=== PATIENT | female | born 1990 | race Caucasian/White ===

== ENCOUNTER 2017-01-25 21:42 | Emergency (ER) | payer OTHER ==
[~2017-01-25] VITALS: Ht 172.7 cm; Wt 80.0 kg
[~2017-01-25 21:42] MED LIST: BUSP10TA PO; LURA40 PO; PROZ20CA11 PO; TRAZ150T75 PO
[2017-01-25 22:03] VITALS: BP 117/74; PULSE 102; RESP 20; TEMP 99; O2SAT 100
--- NOTE | 2017-01-25 22:23 | PD ---
HPI Chief Complaint: Psychiatric Symptoms Time Seen by Provider: 22:11 Travel History International Travel<30 days: No Contact w/Intl Traveler<30days: No Traveled to known affect area: No History of Present Illness HPI 26-year-old female brought in by PD under Hunter act for self-mutilation. According to the Hunter act the patient some photographs herself to a friend that showed old pole lacerations on her arms and being covered in blood. Patient was not cooperative and wouldn't speak with deputies in reference to being suicidal. In route to the hospital the patient became combative. She was given Ativan 2 mg and Zofran 4 mg by EMS and was placed in 4 point restraints as she is a danger to both herself and to others. On my assessment the patient refuses to answer my questions, only answering the question as to why she cut herself with "that's what I do." PFSH Past Medical History ADHD: No Arthritis: No Asthma: No Autoimmune Disease: No Blood Disorders: No Bipolar Disorder: Yes Anxiety: Yes Depression: Yes Heart Rhythm Problems: Yes High Cholesterol: No Chemotherapy: No Chest Pain: No Congestive Heart Failure: No COPD: No Cerebrovascular Accident: No Diminished Hearing: No Endocrine: No Gastrointestinal Disorders: No GERD: No Glaucoma: No Genitourinary: No Hepatitis: No Hiatal Hernia: No Hypertension: No Immune Disorder: No Kidney Stones: No Musculoskeletal: No Neurologic: Yes Psychiatric: Yes (pt has an extensive history of hospitalizations) Respiratory: No Immunizations Current: Yes Migraines: No Myocardial Infarction: No Radiation Therapy: No Renal Failure: No Sickle Cell Disease: No Sleep Apnea: No Thyroid Disease: No Ulcer: No ?: Unknown : 0 Para: 0 Past Surgical History Surgical History: No Previous Surgery AICD: No Appendectomy: No Arteriovenous Shunt: No Cholecystectomy: No Insulin Pump: No Joint Replacement: No Pacemaker: No Other Surgery: No Social History Alcohol Use: Yes (10 shots rum) Tobacco Use: Yes Substance Use: Yes (ALCOHOL, POLY-SUBSTANCES) Allergies-Medications (Allergen,Severity, Reaction): Coded Allergies: No Known Allergies (Verified , 01/25/17) Reported Meds & Prescriptions Reported Meds & Active Scripts Active Reported Trazodone (Trazodone HCl) 150 Mg Tab 150 Mg PO HS Prozac (Fluoxetine HCl) 20 Mg Cap 20 Mg PO DAILY Buspirone (Buspirone HCl) 10 Mg Tab 10 Mg PO TID Latuda (Lurasidone) 40 Mg Tab 40 Mg PO DAILY Review of Systems Except as stated in HPI: all other systems reviewed are Neg Physical Exam Narrative GENERAL: Well-developed, well-nourished, in 4 point restraints, no acute distress. SKIN: Multiple horizontal healed scars on bilateral upper and lower extremities. Bilateral upper extremities are multiple horizontal/superficial lacerations without active bleeding. HEAD: Atraumatic. Normocephalic. EYES: Pupils equal and round. No scleral icterus. No injection or drainage. ENT: Mucous membranes pink and moist. NECK: Trachea midline. No JVD. No nuchal rigidity. CARDIOVASCULAR: Regular rate and rhythm. RESPIRATORY: No accessory muscle use. Clear to auscultation. Breath sounds equal bilaterally. GASTROINTESTINAL: Abdomen soft, non-tender, nondistended. Hepatic and splenic margins not palpable. MUSCULOSKELETAL: No obvious deformities. No clubbing. No cyanosis. No edema. NEUROLOGICAL: Awake and alert. No obvious cranial nerve deficits. Motor grossly within normal limits. Normal speech. PSYCHIATRIC: Poor eye contact. Refusing to answer questions. Data Data Last Documented VS Vital Signs Date Time Temp Pulse Resp B/P Pulse Ox O2 Delivery O2 Flow Rate FiO2 01/25/17 23:11 100 20 103/98 95 Room Air 01/25/17 22:03 99.0 Orders Complete Blood Count With Diff (01/25/17 22:16) Comprehensive Metabolic Panel (01/25/17 22:16) Beta Hcg (Quant/Titer) (01/25/17 22:16) Psych Screen (01/25/17 22:16) Drug Screen, Random Urine (01/25/17 22:16) Alcohol (Ethanol) (01/25/17 22:16) Salicylates (Aspirin) (01/25/17 22:16) Tylenol (Acetaminophen) (01/25/17 22:16) Restraints Violent (01/25/17 22:30) Olanzapine Inj (Zyprexa Inj) (01/25/17 22:30) Labs Laboratory Tests Test 01/25/17 01/25/17 22:18 22:21 White Blood Count 5.5 TH/MM3 Red Blood Count 4.68 MIL/MM3 Hemoglobin 12.0 GM/DL Hematocrit 36.5 % Mean Corpuscular Volume 77.9 FL Mean Corpuscular Hemoglobin 25.7 PG Mean Corpuscular Hemoglobin 33.0 % Concent Red Cell Distribution Width 20.3 % Platelet Count 200 TH/MM3 Mean Platelet Volume 9.2 FL Neutrophils (%) (Auto) 65.0 % Lymphocytes (%) (Auto) 23.8 % Monocytes (%) (Auto) 8.9 % Eosinophils (%) (Auto) 1.8 % Basophils (%) (Auto) 0.5 % Neutrophils # (Auto) 3.6 TH/MM3 Lymphocytes # (Auto) 1.3 TH/MM3 Monocytes # (Auto) 0.5 TH/MM3 Eosinophils # (Auto) 0.1 TH/MM3 Basophils # (Auto) 0.0 TH/MM3 CBC Comment DIFF FINAL Differential Comment Sodium Level 142 MEQ/L Potassium Level 3.7 MEQ/L Chloride Level 107 MEQ/L Carbon Dioxide Level 25.0 MEQ/L Anion Gap 10 MEQ/L Blood Urea Nitrogen 4 MG/DL Creatinine 0.58 MG/DL Estimat Glomerular Filtration 126 ML/MIN Rate Random Glucose 99 MG/DL Calcium Level 7.9 MG/DL Total Bilirubin 0.1 MG/DL Aspartate Amino Transf 56 U/L (AST/SGOT) Alanine Aminotransferase 54 U/L (ALT/SGPT) Alkaline Phosphatase 107 U/L Total Protein 6.9 GM/DL Albumin 2.7 GM/DL Human Chorionic Gonadotropin, LESS THAN 1 Quant MIU/ML Urine Opiates Screen NEG Acetaminophen Level LESS THAN 2.0 MCG/ML Urine Barbiturates Screen NEG Urine Amphetamines Screen NEG Urine Benzodiazepines Screen NEG Urine Cocaine Screen NEG Urine Cannabinoids Screen NEG Ethyl Alcohol Level 336 MG/DL Salicylates Level 4.9 MG/DL [facility] Medical Decision Making Medical Screen Exam Complete: Yes Emergency Medical Condition: Yes Differential Diagnosis Self-mutilation, depression, suicidal ideation Narrative Course Vital signs reviewed. The patient arrived in 4-point or strains and was given Ativan by EMS prior to arrival. Shortly after she arrived she became very aggressive and required further chemical restraint was Zyprexa. CBC is unremarkable. CMP is unremarkable. Beta hCG is negative. Alcohol level is 336. Tylenol and salicylate levels are negative. Urine drug screen is negative for all drugs tested. Bilateral upper extremity wounds were thoroughly irrigated and were approximated by my nurse using Steri-Strips. [facility] is medically cleared for psychiatric evaluation and disposition by them. Diagnosis Primary Impression: Self-mutilation Additional Impressions: Alcohol intoxication Qualified Code: F10.120 - Alcohol intoxication, uncomplicated Multiple lacerations Shahid Hou MD Jan 25, 2017 22:23 Shahid Hou MD Jan 25, 2017 22:23
[2017-01-25] MEDS ORDERED: OLANZapine IM 10 MG VIAL IM ONE (22:30)
[2017-01-25 22:36] LABS: AUTOMATED NEUTROPHIL # 3.6 TH/MM3 (1.8-7.7); BASOPHIL % 0.5 % (0.0-2.0); EOSINOPHIL # 0.1 TH/MM3 (0-0.4); EOSINOPHIL % 1.8 % (0.0-4.0); HEMATOCRIT 36.5 % (35.0-46.0); HEMO FLAGS DIFF FINAL; LYMPH % 23.8 % (9.0-44.0); LYMPHOCYTE # 1.3 TH/MM3 (1.0-4.8); MEAN CELL VOLUME 77.9 FL (80.0-100.0); MEAN CORPUSCULAR HEMOGLOBIN 25.7 PG (27.0-34.0); MONO % 8.9 % (0.0-8.0); PLATELET COUNT 200 TH/MM3 (150-450); RED BLOOD COUNT 4.68 MIL/MM3 (4.00-5.30); RED CELL DISTRIBUTION WIDTH 20.3 % (11.6-17.2); WHITE BLOOD COUNT 5.5 TH/MM3 (4.0-11.0)
[2017-01-25 22:51] LABS: ACETAMINOPHEN LESS THAN 2.0 MCG/ML (10.0-30.0); ALT (GPT) 54 U/L (10-53); AMPHETAMINE, URINE NEG (NEG); ANION GAP 10 MEQ/L (5-15); AST (GOT) 56 U/L (15-37); BARBITURATES, URINE NEG (NEG); BLOOD UREA NITROGEN 4 MG/DL (7-18); CHLORIDE 107 MEQ/L (98-107); COCAINE, URINE NEG (NEG); GLOMERULAR FILTRATION RATE 126 ML/MIN (>89); POTASSIUM 3.7 MEQ/L (3.5-5.1); SODIUM (NA) 142 MEQ/L (136-145)
[2017-01-25 22:56] LABS: ALKALINE PHOSPHATASE 107 U/L (45-117); BETA HCG QUANT LESS THAN 1 MIU/ML (0-5); TOTAL BILIRUBIN ADULT 0.1 MG/DL (0.2-1.0)
[2017-01-25 23:11] VITALS: BP 103/98; PULSE 100; RESP 20; O2SAT 95
[2017-01-26 02:16] VITALS: BP 134/61; PULSE 79; RESP 17; O2SAT 95
[2017-01-26 06:35] VITALS: BP 135/78; PULSE 110; RESP 18; O2SAT 98
--- NOTE | 2017-01-26 14:27 | PD ---
History of Present Illness Chief Complaint: Psychiatric Symptoms Time Seen by Provider: 14:15 Travel History International Travel<30 Days: No Contact w/Intl Traveler<30days: No Known affected area: No Legal Status Legal Status: Hunter Act Hunter Act Signed By: Dayton Clement History of Present Illness: 26-year-old female who was Hunter acted after cutting herself. Apparently she was watching television and the Dr. Abdul show had an episode about cutting. The patient has a history of cutting herself and states the television show triggered her. At this time she is not suicidal homicidal or psychotic. She is calm and cooperative. Her cognition is completely intact. She denies any suicidal or homicidal ideation, plan or intention. She denies any psychotic symptoms. She verbally contracts for safety. She does not meet criteria for inpatient psychiatric hospitalization or Hunter act. [facility] Past Medical History ADHD: No Arthritis: No Asthma: No Autoimmune Disease: No Blood Disorders: No Bipolar Disorder: Yes Anxiety: Yes Depression: Yes Heart Rhythm Problems: Yes High Cholesterol: No Chemotherapy: No Chest Pain: No Congestive Heart Failure: No COPD: No Cerebrovascular Accident: No Diminished Hearing: No Endocrine: No Gastrointestinal Disorders: No GERD: No Glaucoma: No Genitourinary: No Hepatitis: No Hiatal Hernia: No Hypertension: No Immune Disorder: No Kidney Stones: No Musculoskeletal: No Neurologic: Yes Psychiatric: Yes (pt has an extensive history of hospitalizations) Respiratory: No Immunizations Current: Yes Migraines: No Myocardial Infarction: No Radiation Therapy: No Renal Failure: No Sickle Cell Disease: No Sleep Apnea: No Thyroid Disease: No Ulcer: No ?: Unknown : 0 Para: 0 Past Surgical History Surgical History: No Previous Surgery AICD: No Appendectomy: No Arteriovenous Shunt: No Cholecystectomy: No Insulin Pump: No Joint Replacement: No Pacemaker: No Other Surgery: No Psychiatric History Psychiatric History Hx Psychiatric Treatment: Patient with hx of self-harm, depression, anxiety d/o, and bipolar d/o. Last [facility] admission - 2015 dx depression. [facility] 2015 dx mutilation. Past treatment at [facility]. History of Inpatient Treatment: Yes Social History Hx Alcohol Use: Yes (10 shots rum) Hx Tobacco Use: Yes Hx Substance Use: Yes Substance Use Type: Alcohol, Marijuana, Nicotine/Cigarettes, Prescription Medications, Huffing, Synth Opiates-Pain Pills Hx of Substance Use Treatment: No Allergies-Medications (Allergen,Severity, Reaction): Coded Allergies: No Known Allergies (Verified , 01/25/17) Reported Meds & Prescriptions Reported Meds & Active Scripts Active Reported Trazodone (Trazodone HCl) 150 Mg Tab 150 Mg PO HS Prozac (Fluoxetine HCl) 20 Mg Cap 20 Mg PO DAILY Buspirone (Buspirone HCl) 10 Mg Tab 10 Mg PO TID Latuda (Lurasidone) 40 Mg Tab 40 Mg PO DAILY Review of Systems ROS Limitations: Clinical Condition Except as stated in HPI: all other systems reviewed are Neg Exam Exam Limitations: Clinical Condition Alert: Yes [place]: Person, Place, Date, Situation Mood: Calm Affect: Appropriate Speech: Clear, Logical Eye Contact: Normal Memory Intact: Immediate, Recent, Remote Insight/Judgement Adequate MDM Medical Decision Making Medical Record Reviewed: Yes Assessment/Plan Patient is being lifted and she is being discharged home. She is currently in treatment and wants to return to treatment. She states she merely saw a television show that triggered her to cut but she was never suicidal, homicidal or psychotic. She is verbally kim for safety. She does not meet criteria for Hunter act or inpatient psychiatric hospitalization. Orders Complete Blood Count With Diff (01/25/17 22:16) Comprehensive Metabolic Panel (01/25/17 22:16) Beta Hcg (Quant/Titer) (01/25/17 22:16) Psych Screen (01/25/17 22:16) Drug Screen, Random Urine (01/25/17 22:16) Alcohol (Ethanol) (01/25/17 22:16) Salicylates (Aspirin) (01/25/17 22:16) Tylenol (Acetaminophen) (01/25/17 22:16) Restraints Violent (01/25/17 22:30) Olanzapine Inj (Zyprexa Inj) (01/25/17 22:30) Diet Regular Basic (01/26/17 Breakfast) Diet Regular Basic (01/26/17 Lunch) Results Vital Signs Date Time Temp Pulse Resp B/P Pulse Ox O2 Delivery O2 Flow Rate FiO2 01/26/17 08:36 110 18 01/26/17 06:35 110 18 135/78 98 Room Air 01/26/17 02:16 79 17 134/61 95 Room Air 01/25/17 23:11 100 20 103/98 95 Room Air 01/25/17 22:03 99.0 102 20 117/74 100 Room Air Laboratory Tests Test 01/25/17 01/25/17 22:18 22:21 White Blood Count 5.5 Red Blood Count 4.68 Hemoglobin 12.0 Hematocrit 36.5 Mean Corpuscular Volume 77.9 Mean Corpuscular Hemoglobin 25.7 Mean Corpuscular Hemoglobin 33.0 Concent Red Cell Distribution Width 20.3 Platelet Count 200 Mean Platelet Volume 9.2 Neutrophils (%) (Auto) 65.0 Lymphocytes (%) (Auto) 23.8 Monocytes (%) (Auto) 8.9 Eosinophils (%) (Auto) 1.8 Basophils (%) (Auto) 0.5 Neutrophils # (Auto) 3.6 Lymphocytes # (Auto) 1.3 Monocytes # (Auto) 0.5 Eosinophils # (Auto) 0.1 Basophils # (Auto) 0.0 CBC Comment DIFF FINAL Differential Comment Sodium Level 142 Potassium Level 3.7 Chloride Level 107 Carbon Dioxide Level 25.0 Anion Gap 10 Blood Urea Nitrogen 4 Creatinine 0.58 Estimat Glomerular Filtration 126 Rate Random Glucose 99 Calcium Level 7.9 Total Bilirubin 0.1 Aspartate Amino Transf 56 (AST/SGOT) Alanine Aminotransferase 54 (ALT/SGPT) Alkaline Phosphatase 107 Total Protein 6.9 Albumin 2.7 Human Chorionic Gonadotropin, LESS THAN 1 Quant Urine Opiates Screen NEG Acetaminophen Level LESS THAN 2.0 Urine Barbiturates Screen NEG Urine Amphetamines Screen NEG Urine Benzodiazepines Screen NEG Urine Cocaine Screen NEG Urine Cannabinoids Screen NEG Ethyl Alcohol Level 336 Salicylates Level 4.9 Diagnosis Primary Impression: Adjustment disorder with mixed disturbance of emotions and conduct Goldy Chan MD Jan 26, 2017 14:27
== END 2017-01-26 16:30 | disposition home or self-care (01) ==
LOC: NEPD 21:42 → NEPJ 01-26 16:30
DX: F43.25 Adjustment disorder with mixed disturbance of emotions and conduct (principal); Z91.5 Personal history of self-harm; F10.129 Alcohol abuse with intoxication, unspecified; S41.112A Laceration without foreign body of left upper arm, initial encounter; S41.111A Laceration without foreign body of right upper arm, initial encounter; X78.9XXA Intentional self-harm by unspecified sharp object, initial encounter; F19.10 Other psychoactive substance abuse, uncomplicated; Z72.0 Tobacco use
CPT/HCPCS: 80053; 80307; 84702; 85025; 96372

== ENCOUNTER 2017-02-11 20:37 | Emergency (ER) | payer OTHER ==
[2017-02-11 21:18] VITALS: BP 119/58; PULSE 89; RESP 16; TEMP 98.9; O2SAT 100
--- NOTE | 2017-02-11 21:35 | PD ---
HPI Chief Complaint: Suicide Ideation/Attempt Time Seen by Provider: 21:35 Travel History International Travel<30 days: No Contact w/Intl Traveler<30days: No Traveled to known affect area: No History of Present Illness HPI 26-year-old female patient arrives in the Hunter act with long history of psychiatric illness with cutting behavior and recurrent suicidal behavior. Patient currently denies any medical issues except for a sore swollen area over the right proximal volar forearm from previous cutting behavior with localized swelling and erythema and the discomfort. Patient denies fever, chills, or other symptoms. Patient is here with suicidal ideation. Patient denies alcohol or drug use. She has no known drug allergies. PFSH Past Medical History ADHD: No Arthritis: No Asthma: No Autoimmune Disease: No Blood Disorders: No Bipolar Disorder: Yes Anxiety: Yes Depression: Yes Heart Rhythm Problems: Yes High Cholesterol: No Chemotherapy: No Chest Pain: No Congestive Heart Failure: No COPD: No Cerebrovascular Accident: No Diminished Hearing: No Endocrine: No Gastrointestinal Disorders: No GERD: No Glaucoma: No Genitourinary: No Hepatitis: No Hiatal Hernia: No Hypertension: No Immune Disorder: No Kidney Stones: No Musculoskeletal: No Neurologic: Yes Psychiatric: Yes (pt has an extensive history of hospitalizations) Respiratory: No Immunizations Current: Yes Migraines: No Myocardial Infarction: No Radiation Therapy: No Renal Failure: No Sickle Cell Disease: No Sleep Apnea: No Thyroid Disease: No Ulcer: No ?: Unknown : 0 Para: 0 Past Surgical History AICD: No Appendectomy: No Arteriovenous Shunt: No Cholecystectomy: No Insulin Pump: No Joint Replacement: No Pacemaker: No Other Surgery: No Social History Alcohol Use: Yes (10 shots rum) Tobacco Use: Yes Substance Use: Yes Allergies-Medications (Allergen,Severity, Reaction): Coded Allergies: No Known Allergies (Verified , 02/11/17) Reported Meds & Prescriptions Reported Meds & Active Scripts Active Reported Trazodone (Trazodone HCl) 150 Mg Tab 150 Mg PO HS Prozac (Fluoxetine HCl) 20 Mg Cap 20 Mg PO DAILY Buspirone (Buspirone HCl) 10 Mg Tab 10 Mg PO TID Latuda (Lurasidone) 40 Mg Tab 40 Mg PO DAILY Review of Systems ROS Limitations: Uncooperative Except as stated in HPI: all other systems reviewed are Neg General / Constitutional: No: Fever Eyes: No: Visual changes HENT: No: Headaches Cardiovascular: No: Chest Pain or Discomfort Respiratory: No: Shortness of Breath Gastrointestinal: No: Abdominal Pain Genitourinary: No: Dysuria Musculoskeletal: No: Pain Skin: No Rash Neurologic: No: Weakness Psychiatric: No: Depression Endocrine: No: Polydipsia Hematologic/Lymphatic: No: Easy Bruising Physical Exam Exam Limitations: Poor Historian, Uncooperative Narrative GENERAL: Patient appears in mild discomfort. SKIN: Warm and dry. Patient has multiple healing lacerations from cutting behavior on all upper and lower extremities. She has a small area of swelling on the dorsal left proximal forearm with localized lymphangitis and erythema without significant drainage or signs of abscess. Otherwise skin is normal- appearing. HEAD: Atraumatic. Normocephalic. EYES: Pupils equal and round. No scleral icterus. No injection or drainage. ENT: No nasal bleeding or discharge. Mucous membranes pink and moist. Pharynx is clear. Airway is patent. NECK: Trachea midline. Supple and nontender. CARDIOVASCULAR: Regular rate and rhythm. RESPIRATORY: No accessory muscle use. Clear to auscultation. Breath sounds equal bilaterally. GASTROINTESTINAL: Abdomen soft, non-tender, nondistended. Hepatic and splenic margins not palpable. MUSCULOSKELETAL: Extremities without clubbing, cyanosis, or edema. No obvious deformities. NEUROLOGICAL: Awake and alert. No obvious cranial nerve deficits. Motor grossly within normal limits. Five out of 5 muscle strength in the arms and legs. Normal speech. PSYCHIATRIC: Appropriate mood and affect; insight and judgment normal. Data Data Last Documented VS Vital Signs Date Time Temp Pulse Resp B/P Pulse Ox O2 Delivery O2 Flow Rate FiO2 02/11/17 21:18 98.9 89 16 119/58 100 Room Air Orders Complete Blood Count With Diff (02/11/17 21:36) Comprehensive Metabolic Panel (02/11/17 21:36) Iv Access Insert/Monitor (02/11/17 21:36) Psych Screen (02/11/17 21:36) Drug Screen, Random Urine (02/11/17 21:36) Alcohol (Ethanol) (02/11/17 21:36) Clindamycin Inj (Cleocin Inj) (02/11/17 21:45) Sulfamet-Trimeth Ds 800-160 Mg (Bactrim (02/11/17 21:45) Diet Regular Basic (02/12/17 Breakfast) MDM Medical Decision Making Medical Screen Exam Complete: Yes Emergency Medical Condition: Yes Medical Record Reviewed: Yes Differential Diagnosis Cutting behavior. Suicidal ideation. Cellulitis. Narrative Course Patient appears medically stable at time of exam. Laboratory CBC, CMP, urine drug screen, urinalysis. IV access is obtained patient is given 900 mg clindamycin IV. Patient is given Bactrim DS by mouth times one. 2300 hrs. labs are still pending. Care the patient is assumed by Dr. Griffin. Final disposition will be determined by her. Diagnosis Primary Impression: Adjustment disorder with mixed disturbance of emotions and conduct Additional Impressions: Self-mutilation Cellulitis Qualified Code: L03.114 - Cellulitis of left upper extremity Condition: Stable Romario Olea Feb 11, 2017 21:35
[2017-02-11] MEDS ORDERED: SULFAMETHOXAZOLE-TRIMETHOPRIM DS 800-160 MG TAB PO ONE (21:45)
[2017-02-11] MEDS ORDERED: CLINDAMYCIN INJ 900 MG in SODIUM CHLORIDE 0.9% INJ 100 ML IV ONE (21:45)
[2017-02-11 23:10] LABS: BASOPHIL # 0.1 TH/MM3 (0-0.2); BASOPHIL % 0.6 % (0.0-2.0); EOSINOPHIL # 0.1 TH/MM3 (0-0.4); EOSINOPHIL % 0.7 % (0.0-4.0); HEMATOCRIT 33.2 % (35.0-46.0); LYMPH % 20.7 % (9.0-44.0); LYMPHOCYTE # 2.2 TH/MM3 (1.0-4.8); MEAN CELL VOLUME 76.6 FL (80.0-100.0); MEAN CORPUSCULAR HEMOGLOBIN 24.7 PG (27.0-34.0); MEAN CORPUSCULAR HGB CONC 32.3 % (32.0-36.0); PLATELET COUNT 296 TH/MM3 (150-450); RED BLOOD COUNT 4.33 MIL/MM3 (4.00-5.30); WHITE BLOOD COUNT 10.8 TH/MM3 (4.0-11.0)
[2017-02-11 23:26] LABS: HEMO FLAGS AUTO DIFF
[2017-02-11 23:29] LABS: ANION GAP 11 MEQ/L (5-15)
[2017-02-11 23:30] LABS: AMPHETAMINE, URINE NEG (NEG); BARBITURATES, URINE NEG (NEG); COCAINE, URINE NEG (NEG)
[2017-02-11 23:32] LABS: ALKALINE PHOSPHATASE 112 U/L (45-117); ALT (GPT) 17 U/L (10-53); AST (GOT) 18 U/L (15-37); BICARBONATE 22.6 MEQ/L (21.0-32.0); BLOOD UREA NITROGEN 1 MG/DL (7-18); CHLORIDE 105 MEQ/L (98-107); GLOMERULAR FILTRATION RATE 139 ML/MIN (>89); POTASSIUM 3.3 MEQ/L (3.5-5.1); SODIUM (NA) 139 MEQ/L (136-145); TOTAL BILIRUBIN ADULT LESS THAN 0.1 MG/DL (0.2-1.0)
[2017-02-11 23:54] LABS: BANDS 2 % (0-6); METAMYELOCYTES 4 % (0-1); MYELOCYTES 1 % (0-0); NEUTROPHIL # MANUAL DIFF 8.9 TH/MM3 (1.8-7.7); POLYS (SEG NEUTROPHILS) 75 % (16-70); WBC DIFF SAMPLE 100
[2017-02-11 23:56] LABS: PLATELET ESTIMATE SMEAR NORMAL (NORMAL); PLATELET MORPHOLOGY NORMAL (NORMAL); SCAN/DIFF FINAL DIFF MANUAL
[2017-02-12] MEDS ORDERED: CLIN1CAP6 PO (00:21)
--- NOTE | 2017-02-12 00:21 | PD ---
Physical Exam Narrative GENERAL: Well-nourished, well-developed patient. SKIN: Warm and dry. HEAD: Normocephalic and atraumatic. EYES: No injection or drainage. pupils equal ENT: No nasal drainage noted. NECK: Supple, trachea midline. CARDIOVASCULAR: Regular rate and rhythm RESPIRATORY: no increased effort. No accessory muscle use. NEUROLOGICAL: Resting but awakens to voice and denies complaints. Moves all extremities. Data Data Last Documented VS Vital Signs Date Time Temp Pulse Resp B/P Pulse Ox O2 Delivery O2 Flow Rate FiO2 02/11/17 21:18 98.9 89 16 119/58 100 Room Air Orders Complete Blood Count With Diff (02/11/17 21:36) Comprehensive Metabolic Panel (02/11/17 21:36) Iv Access Insert/Monitor (02/11/17 21:36) Psych Screen (02/11/17 21:36) Drug Screen, Random Urine (02/11/17 21:36) Alcohol (Ethanol) (02/11/17 21:36) Clindamycin Inj (Cleocin Inj) (02/11/17 21:45) Sulfamet-Trimeth Ds 800-160 Mg (Bactrim (02/11/17 21:45) Diet Regular Basic (02/12/17 Breakfast) Labs Laboratory Tests Test 02/11/17 02/11/17 22:24 23:00 White Blood Count 10.8 TH/MM3 Red Blood Count 4.33 MIL/MM3 Hemoglobin 10.7 GM/DL Hematocrit 33.2 % Mean Corpuscular Volume 76.6 FL Mean Corpuscular Hemoglobin 24.7 PG Mean Corpuscular Hemoglobin 32.3 % Concent Red Cell Distribution Width 20.0 % Platelet Count 296 TH/MM3 Mean Platelet Volume 9.0 FL Neutrophils (%) (Auto) 74.0 % Lymphocytes (%) (Auto) 20.7 % Monocytes (%) (Auto) 4.0 % Eosinophils (%) (Auto) 0.7 % Basophils (%) (Auto) 0.6 % Neutrophils # (Auto) 8.0 TH/MM3 Lymphocytes # (Auto) 2.2 TH/MM3 Monocytes # (Auto) 0.4 TH/MM3 Eosinophils # (Auto) 0.1 TH/MM3 Basophils # (Auto) 0.1 TH/MM3 CBC Comment AUTO DIFF Differential Total Cells 100 Counted Neutrophils % (Manual) 75 % Band Neutrophils % 2 % Lymphocytes % 18 % Neutrophils # (Manual) 8.9 TH/MM3 Metamyelocytes 4 % Myelocytes 1 % Differential Comment FINAL DIFF MANUAL Platelet Estimate NORMAL Platelet Morphology Comment NORMAL Sodium Level 139 MEQ/L Potassium Level 3.3 MEQ/L Chloride Level 105 MEQ/L Carbon Dioxide Level 22.6 MEQ/L Anion Gap 11 MEQ/L Blood Urea Nitrogen 1 MG/DL Creatinine 0.53 MG/DL Estimat Glomerular Filtration 139 ML/MIN Rate Random Glucose 99 MG/DL Calcium Level 8.2 MG/DL Total Bilirubin LESS THAN 0.1 MG/DL Aspartate Amino Transf 18 U/L (AST/SGOT) Alanine Aminotransferase 17 U/L (ALT/SGPT) Alkaline Phosphatase 112 U/L Total Protein 6.7 GM/DL Albumin 2.2 GM/DL Ethyl Alcohol Level 228 MG/DL Urine Opiates Screen NEG Urine Barbiturates Screen NEG Urine Amphetamines Screen NEG Urine Benzodiazepines Screen NEG Urine Cocaine Screen NEG Urine Cannabinoids Screen NEG MDM Supervised Visit with ADALBERTO: Yes Interpretation(s) CBC & BMP Diagram 02/11/17 22:24 Narrative Course I, Dr. juarez, have reviewed the advance practice practitioner's documentation and am in agreement, met with the patient face to face, made the diagnosis, and the medical decision making was done by me. *My assessment and Findings: 26 y/o female presents under Hunter act. Lab work without emergent findings and patient is medically cleared without new complaints. Please see prior note for further details, will provide clindamycin to continue Diagnosis Primary Impression: Adjustment disorder with mixed disturbance of emotions and conduct Additional Impressions: Cellulitis Qualified Code: L03.114 - Cellulitis of left upper extremity Self-mutilation Med/Other Pt SpecificInfo: Prescription(s) given Scripts Clindamycin 300 Mg [id number] Mg PO TID 10 Days Ref 0 Prov:Edelmira Juarez MD 02/12/17 Condition: Stable Edelmira Juarez MD Feb 12, 2017 00:21
[2017-02-12 00:25] VITALS: BP 94/51; PULSE 98; RESP 18; O2SAT 100
[2017-02-12 02:04] VITALS: BP 110/53; PULSE 100; RESP 18; O2SAT 99
[2017-02-12 06:08] VITALS: BP 95/55; PULSE 104; RESP 18; O2SAT 100
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
== END 2017-02-12 12:22 | disposition home or self-care (01) ==
LOC: NEPE 20:37 → NEPJ 02-12 12:22
DX: L03.114 Cellulitis of left upper limb (principal); F43.25 Adjustment disorder with mixed disturbance of emotions and conduct; Z91.5 Personal history of self-harm; F31.9 Bipolar disorder, unspecified; F41.8 Other specified anxiety disorders
CPT/HCPCS: 80053; 80307; 85007; 85027; 96374

== ENCOUNTER 2017-02-19 21:07 | Emergency (ER) | payer OTHER ==
[~2017-02-19 21:07] MED LIST changes: +CLIN1CAP6 PO
[2017-02-19 21:31] VITALS: BP 106/61; PULSE 78; TEMP 98.3; O2SAT 92
--- NOTE | 2017-02-19 21:47 | PD ---
HPI Chief Complaint: Psychiatric Symptoms Time Seen by Provider: 21:38 Travel History International Travel<30 days: No Contact w/Intl Traveler<30days: No Traveled to known affect area: No History of Present Illness HPI 26-year-old white female presents to emergency department under [place] act by PD for self-inflicted lacerations. This is a patient well-known to myself and the medical staff. The patient has performed self mutilation again today cutting herself with a razor. She has cut her left upper extremity as well as her left lower extremity. She denies any suicidal ideation. No homicidal ideation. She does admit to alcohol. Positive coughing congestion. No other complaints. The patient will not elaborate on why she cut today. PFSH Past Medical History ADHD: No Arthritis: No Asthma: No Autoimmune Disease: No Blood Disorders: No Bipolar Disorder: Yes Anxiety: Yes Depression: Yes Heart Rhythm Problems: Yes High Cholesterol: No Chemotherapy: No Chest Pain: No Congestive Heart Failure: No COPD: No Cerebrovascular Accident: No Diminished Hearing: No Endocrine: No Gastrointestinal Disorders: No GERD: No Glaucoma: No Genitourinary: No Hepatitis: No Hiatal Hernia: No Hypertension: No Immune Disorder: No Kidney Stones: No Musculoskeletal: No Neurologic: Yes Psychiatric: Yes (pt has an extensive history of hospitalizations) Respiratory: No Immunizations Current: Yes Migraines: No Myocardial Infarction: No Radiation Therapy: No Renal Failure: No Sickle Cell Disease: No Sleep Apnea: No Thyroid Disease: No Ulcer: No Tetanus Vaccination: < 5 Years : 0 Para: 0 Past Surgical History Surgical History: No Previous Surgery AICD: No Appendectomy: No Arteriovenous Shunt: No Cholecystectomy: No Insulin Pump: No Joint Replacement: No Pacemaker: No Other Surgery: No Social History Alcohol Use: Yes (10 shots rum) Tobacco Use: Yes Substance Use: Yes Allergies-Medications (Allergen,Severity, Reaction): Coded Allergies: No Known Allergies (Verified , 02/11/17) Reported Meds & Prescriptions Reported Meds & Active Scripts Active Reported Trazodone (Trazodone HCl) 150 Mg Tab 150 Mg PO HS Prozac (Fluoxetine HCl) 20 Mg Cap 20 Mg PO DAILY Buspirone (Buspirone HCl) 10 Mg Tab 10 Mg PO TID Latuda (Lurasidone) 40 Mg Tab 40 Mg PO DAILY Review of Systems Except as stated in HPI: all other systems reviewed are Neg General / Constitutional: No: Fever, Chills Eyes: No: Blurred Vision, Photophobia HENT: No: Sore Throat, Neck Stiffness Cardiovascular: No: Chest Pain or Discomfort, Palpitations Respiratory: Positive: Cough, No: Shortness of Breath, Wheezing Gastrointestinal: No: Nausea, Vomiting Psychiatric: Positive: Depression, Mood Disorder, Substance Abuse, No: Anxiety , Suicidal Ideations, Disorder of Thought, Homicidal Ideation Physical Exam Narrative GENERAL: Well-nourished, well-developed patient. Smells of EtOH and appears intoxicated SKIN: Warm and dry. Patient has multiple lacerations to the left upper extremity and the left lower extremity. These are the patient's typical cutting. These are into the subcutaneous change tissues but no deep structure injury. These are amenable to Steri-Strips. HEAD: Normocephalic and atraumatic. EYES: No scleral icterus. No injection or drainage. ENT: No nasal drainage noted. Mucous membranes pink. Airway patent. NECK: Supple, trachea midline. Moves head freely without obvious discomfort. CARDIOVASCULAR: Regular rate and rhythm without murmurs, gallops, or rubs. RESPIRATORY: Breath sounds equal bilaterally. No accessory muscle use. GASTROINTESTINAL: Abdomen soft, non-tender, nondistended. EXTREMITIES: No cyanosis or edema. BACK: Nontender without obvious deformity. No CVA tenderness. NEURO: Patient is alert and oriented. no sensorimotor deficits. Nonfocal. Normal speech. PSYCH: No delusions. No auditory or visual hallucinations. Poor insight and judgment. Data Data Last Documented VS Vital Signs Date Time Temp Pulse Resp B/P Pulse Ox O2 Delivery O2 Flow Rate FiO2 02/19/17 21:31 98.3 78 106/61 92 Orders Complete Blood Count With Diff (02/19/17 21:21) Comprehensive Metabolic Panel (02/19/17 21:21) Ed Urine Pregnancytest Poc (02/19/17 21:21) Psych Screen (02/19/17 21:21) Drug Screen, Random Urine (02/19/17 21:21) Alcohol (Ethanol) (02/19/17 21:21) Salicylates (Aspirin) (02/19/17 21:21) Tylenol (Acetaminophen) (02/19/17 21:21) Labs Laboratory Tests Test 02/19/17 21:50 White Blood Count 9.0 TH/MM3 Red Blood Count 4.78 MIL/MM3 Hemoglobin 11.8 GM/DL Hematocrit 37.1 % Mean Corpuscular Volume 77.5 FL Mean Corpuscular Hemoglobin 24.8 PG Mean Corpuscular Hemoglobin 31.9 % Concent Red Cell Distribution Width 20.2 % Platelet Count 341 TH/MM3 Mean Platelet Volume 8.8 FL Neutrophils (%) (Auto) 75.3 % Lymphocytes (%) (Auto) 19.0 % Monocytes (%) (Auto) 4.2 % Eosinophils (%) (Auto) 0.9 % Basophils (%) (Auto) 0.6 % Neutrophils # (Auto) 6.8 TH/MM3 Lymphocytes # (Auto) 1.7 TH/MM3 Monocytes # (Auto) 0.4 TH/MM3 Eosinophils # (Auto) 0.1 TH/MM3 Basophils # (Auto) 0.1 TH/MM3 CBC Comment AUTO DIFF Sodium Level 144 MEQ/L Potassium Level 4.3 MEQ/L Chloride Level 109 MEQ/L Carbon Dioxide Level 27.6 MEQ/L Anion Gap 7 MEQ/L Blood Urea Nitrogen 5 MG/DL Creatinine 0.68 MG/DL Estimat Glomerular Filtration 105 ML/MIN Rate Random Glucose 94 MG/DL Calcium Level 8.5 MG/DL Total Bilirubin LESS THAN 0.1 MG/DL Aspartate Amino Transf 28 U/L (AST/SGOT) Alanine Aminotransferase 26 U/L (ALT/SGPT) Alkaline Phosphatase 110 U/L Total Protein 7.2 GM/DL Albumin 2.6 GM/DL Salicylates Level 4.4 MG/DL Urine Opiates Screen NEG Acetaminophen Level LESS THAN 2.0 MCG/ML Urine Barbiturates Screen NEG Urine Amphetamines Screen NEG Urine Benzodiazepines Screen NEG Urine Cocaine Screen NEG Urine Cannabinoids Screen POS Ethyl Alcohol Level 255 MG/DL MDM Medical Decision Making Medical Screen Exam Complete: Yes Emergency Medical Condition: Yes Medical Record Reviewed: Yes Interpretation(s) Laboratory Tests Test 02/19/17 21:50 White Blood Count 9.0 TH/MM3 Red Blood Count 4.78 MIL/MM3 Hemoglobin 11.8 GM/DL Hematocrit 37.1 % Mean Corpuscular Volume 77.5 FL Mean Corpuscular Hemoglobin 24.8 PG Mean Corpuscular Hemoglobin 31.9 % Concent Red Cell Distribution Width 20.2 % Platelet Count 341 TH/MM3 Mean Platelet Volume 8.8 FL Neutrophils (%) (Auto) 75.3 % Lymphocytes (%) (Auto) 19.0 % Monocytes (%) (Auto) 4.2 % Eosinophils (%) (Auto) 0.9 % Basophils (%) (Auto) 0.6 % Neutrophils # (Auto) 6.8 TH/MM3 Lymphocytes # (Auto) 1.7 TH/MM3 Monocytes # (Auto) 0.4 TH/MM3 Eosinophils # (Auto) 0.1 TH/MM3 Basophils # (Auto) 0.1 TH/MM3 CBC Comment AUTO DIFF Sodium Level 144 MEQ/L Potassium Level 4.3 MEQ/L Chloride Level 109 MEQ/L Carbon Dioxide Level 27.6 MEQ/L Anion Gap 7 MEQ/L Blood Urea Nitrogen 5 MG/DL Creatinine 0.68 MG/DL Estimat Glomerular Filtration 105 ML/MIN Rate Random Glucose 94 MG/DL Calcium Level 8.5 MG/DL Total Bilirubin LESS THAN 0.1 MG/DL Aspartate Amino Transf 28 U/L (AST/SGOT) Alanine Aminotransferase 26 U/L (ALT/SGPT) Alkaline Phosphatase 110 U/L Total Protein 7.2 GM/DL Albumin 2.6 GM/DL Salicylates Level 4.4 MG/DL Urine Opiates Screen NEG Acetaminophen Level LESS THAN 2.0 MCG/ML Urine Barbiturates Screen NEG Urine Amphetamines Screen NEG Urine Benzodiazepines Screen NEG Urine Cocaine Screen NEG Urine Cannabinoids Screen POS Ethyl Alcohol Level 255 MG/DL Differential Diagnosis MDM: High Differential diagnoses: Schizophrenia, schizoaffective disorder, bipolar, anxiety, depression, adjustment reaction, mood disorder NOS, ODD, depressive disorder NOS, dementia, dementia with agitation, psychosis NOS, substance induced mood disorder, intermittent explosive disorder, Asperger syndrome, infection,electrolyte abnormality, malingering. Narrative Course Mental health screening discussed with the patient. Psychiatric screen ordered. The patient's lacerations have been cleansed, Steri-Stripped and dressed by the nursing staff. Patient is been medically cleared. This is self-mutilation, multiple lacerations, borderline personality disorder and adult, alcohol intoxication, alcohol abuse Diagnosis Primary Impression: Self-mutilation Additional Impressions: Multiple lacerations Borderline personality disorder in adult Alcohol intoxication Qualified Code: F10.920 - Alcohol intoxication, uncomplicated Alcohol abuse Condition: Stable Jonatan Eisenberg February 19, 2017 21:47
[2017-02-19 22:30] LABS: AUTOMATED NEUTROPHIL # 6.8 TH/MM3 (1.8-7.7); BASOPHIL # 0.1 TH/MM3 (0-0.2); BASOPHIL % 0.6 % (0.0-2.0); EOSINOPHIL # 0.1 TH/MM3 (0-0.4); EOSINOPHIL % 0.9 % (0.0-4.0); HEMATOCRIT 37.1 % (35.0-46.0); LYMPHOCYTE # 1.7 TH/MM3 (1.0-4.8); MEAN CELL VOLUME 77.5 FL (80.0-100.0); MEAN CORPUSCULAR HEMOGLOBIN 24.8 PG (27.0-34.0); MEAN CORPUSCULAR HGB CONC 31.9 % (32.0-36.0); MONO % 4.2 % (0.0-8.0); NEUT % 75.3 % (16.0-70.0); PLATELET COUNT 341 TH/MM3 (150-450); RED BLOOD COUNT 4.78 MIL/MM3 (4.00-5.30); RED CELL DISTRIBUTION WIDTH 20.2 % (11.6-17.2)
[2017-02-19 22:32] LABS: HEMO FLAGS AUTO DIFF
[2017-02-19 22:39] LABS: AMPHETAMINE, URINE NEG (NEG); BARBITURATES, URINE NEG (NEG); COCAINE, URINE NEG (NEG)
[2017-02-19 22:57] LABS: ANION GAP 7 MEQ/L (5-15); AST (GOT) 28 U/L (15-37); BICARBONATE 27.6 MEQ/L (21.0-32.0); BLOOD UREA NITROGEN 5 MG/DL (7-18); CHLORIDE 109 MEQ/L (98-107); GLOMERULAR FILTRATION RATE 105 ML/MIN (>89); POTASSIUM 4.3 MEQ/L (3.5-5.1); SODIUM (NA) 144 MEQ/L (136-145)
[2017-02-19 22:59] LABS: ACETAMINOPHEN LESS THAN 2.0 MCG/ML (10.0-30.0); ALKALINE PHOSPHATASE 110 U/L (45-117); ALT (GPT) 26 U/L (10-53); TOTAL BILIRUBIN ADULT LESS THAN 0.1 MG/DL (0.2-1.0)
[2017-02-19 23:06] LABS: SCAN/DIFF AUTO DIFF CONFIRMED
[2017-02-19 23:07] LABS: TOXIC GRANULATION 1+ (NORMAL)
[2017-02-19 23:09] LABS: PLATELET ESTIMATE SMEAR NORMAL (NORMAL); PLATELET MORPHOLOGY NORMAL (NORMAL)
[2017-02-19] MEDS ORDERED: LORazepam 1 MG TAB PO PRN (23:15)
[2017-02-19] MEDS ORDERED: LORazepam 2 MG TAB PO PRN (23:15)
[2017-02-19] MEDS ORDERED: FLUMAZENIL 0.5 MG/5 ML VIAL IV PUSH PRN (23:15)
[2017-02-19] MEDS ORDERED: LORazepam 2 MG/ML VIAL IV PUSH PRN ×4 (23:15)
[2017-02-20 02:43] VITALS: BP 114/56; PULSE 114; RESP 18; O2SAT 96
--- NOTE | 2017-02-20 10:20 | MB ---
cc: MOHAN OCHOA DATE OF CONSULTATION: 02/20/2017 PHYSICIAN REQUESTING CONSULTATION Emergency department REASON FOR CONSULTATION [place] Act HISTORY OF PRESENT ILLNESS: Ms. Paz is a 26-year-old female with a history of borderline personality disorder and alcohol use issues who presents under a [place] Act by law enforcement alleging self injury. The patient is well-known to the psychiatric service here from a lengthy history of psychiatric admissions and ED visits related to her history of self injury in the setting of borderline personality disorder. She was most recently seen in the ED February [address] Jackson who lifted the Hunter Act and discharged the patient from the ED. The patient was seen and examined. Chart reviewed. Case discussed with nursing staff. There has been no evidence of further self injury, suicidality or homicidality while the patient has been under observation in the [facility]. On my examination this morning she is clinically sober. She reports that she self injured in the setting of alcohol use without specific stressor. As evidence of this I do note that she has some fresh superficial lacerations on her forearms. She recognizes her alcohol use is problematic but is not interested in changing it at this time by seeking detox or rehabilitation. Mood is reportedly stable and she is doing well on her psychotropics of Prozac, Latuda, trazodone and BuSpar. No hypomanic or manic or depressive symptoms noted. Denies suicidal or homicidal ideation, intent or plan. No audiovisual hallucinations. No evident delusions. The remainder of the psychiatric ROS is negative. PAST PSYCHIATRIC HISTORY The patient has a history of borderline personality disorder and alcohol use issues. She follows outpatient at [facility]. She denies any recent psychiatric admissions but does have a lengthy history of psychiatric admissions within our system in the past. She reports one prior suicidal attempt at age 16 by overdose. FAMILY HISTORY The patient denies any family history of serious mental illness or suicide. CHEMICAL DEPENDENCY HISTORY: The patient reports she drinks a six-pack of beer daily. She also smokes cannabis. She denies any history of DTs or seizures. SOCIAL HISTORY Living with her step parents. She does not work. She has a court hearing coming for disability. She is single with no children. Denies any or legal history. Denies any access to guns or firearms. REVIEW OF SYSTEMS No reported physical complaints. PHYSICAL EXAMINATION VITAL SIGNS: Temperature 98.3, pulse 114, respirations 18, blood pressure 114/56, pulse oximetry 96% on room air. Physical examination completed by the ED provider. On my examination today, the patient appears to be in no acute physical distress. I do note that she has several self injury scars as well as fresh lacerations on her forearms. The old wounds are in various stages of healing. No signs of withdrawal noted. No motor abnormalities noted. LABORATORY Reviewed: The patient's urine toxicology was positive for cannabinoids and her alcohol level was 255. MENTAL STATUS EXAMINATION: The patient is in hospital gown. She is awake, alert and oriented x3. No motor abnormalities noted. Speech is within normal limits for rate, tone and volume. Language and fund of knowledge seem average. Mood is fair and affect is full and reactive. Thought process linear. No loosening of associations. No evident delusions. Denies audiovisual hallucinations. Denies suicidal or homicidal ideation, intent or plan. Denies ongoing urge to self injure at this time. Insight and judgment are poor, likely chronically so. ASSESSMENT/PLAN 1. Borderline personality disorder, F60.3 2. Alcohol abuse with intoxication, intoxication resolved, F10.120. This is a 26-year-old female with psychiatric history as detailed above who presents under a Hunter Act following self injury. Patient with lengthy history of self injury in the setting of borderline personality disorder. This was one of her typical episodes. She denies any ongoing urge to self injure. She denies any suicidal or homicidal ideation. No evidence of any unstable mood, anxiety or psychotic disorder in this patient at this time. She appears to be attending to her basic needs. She is established with outpatient psychiatric services through [facility] and is willing to follow up. Putting all of this information together, and weighing the relevant factors, I is technician that she does not meet Hunter Act criteria. I have lifted the [place] Act. I have strongly recommended that she allow us to get her help for her alcohol use issues as this is likely the primary modifiable risk factor for ongoing self injury, but she has unfortunately declined services at this time. I have encouraged her to pursue ambulatory chemical dependency evaluation and treatment through [facility]. The patient reminded to return to the psychiatric emergency room for any concerning psychiatric symptoms. The patient is otherwise psychiatrically clear for discharge from the ED. Thank you very much for this consultation. Mohan GUILLEN /9:15 AM /10:00 AM [email or web address]
== END 2017-02-20 09:38 | disposition home or self-care (01) ==
LOC: NEPD 21:07 → NEPJ 02-20 09:38
DX: S51.812A Laceration without foreign body of left forearm, initial encounter (principal); Z91.5 Personal history of self-harm; S81.812A Laceration without foreign body, left lower leg, initial encounter; X78.8XXA Intentional self-harm by other sharp object, initial encounter; F60.3 Borderline personality disorder; F10.120 Alcohol abuse with intoxication, uncomplicated; Z72.0 Tobacco use; F19.10 Other psychoactive substance abuse, uncomplicated
CPT/HCPCS: 80053; 80307; 84703; 85025; 99284

== ENCOUNTER 2017-04-01 23:13 | Emergency (ER) | payer MEDICAID ==
[~2017-04-01 23:13] MED LIST changes: -CLIN1CAP6 PO
[2017-04-01 23:31] VITALS: BP 97/57; PULSE 93; RESP 18; TEMP 97.6; O2SAT 95
--- NOTE | 2017-04-01 23:55 | PD ---
HPI Chief Complaint: Psychiatric Symptoms Time Seen by Provider: 23:46 Travel History International Travel<30 days: No Contact w/Intl Traveler<30days: No Traveled to known affect area: No History of Present Illness HPI 26 year white female presents to emergency department under [place] act by PD. She is a transfer from [facility]. The patient was in the process of intake due to the Hunter act when she had cut herself with a piece of metal that she had found in the bathroom. The patient is very noncompliant and combative. She was given Benadryl 50 mg IM, Ativan 2 mg IM, and Haldol 5 motor grams IM. It was noted that the patient appeared intoxicated at the time. This is a patient well-known to the medical staff and myself. She has a history of cutting. She had sent text messages to her significant other stating that she was going to cut herself. The patient here is unable to give any history due to her decreased level of consciousness from her medication. PFSH Past Medical History ADHD: No Arthritis: No Asthma: No Autoimmune Disease: No Blood Disorders: No Bipolar Disorder: Yes Anxiety: Yes Depression: Yes Heart Rhythm Problems: Yes High Cholesterol: No Chemotherapy: No Chest Pain: No Congestive Heart Failure: No COPD: No Cerebrovascular Accident: No Diminished Hearing: No Endocrine: No Gastrointestinal Disorders: No GERD: No Glaucoma: No Genitourinary: No Hepatitis: No Hiatal Hernia: No Hypertension: No Immune Disorder: No Kidney Stones: No Musculoskeletal: No Neurologic: Yes Psychiatric: Yes (pt has an extensive history of hospitalizations) Respiratory: No Immunizations Current: Yes Migraines: No Myocardial Infarction: No Radiation Therapy: No Renal Failure: No Sickle Cell Disease: No Sleep Apnea: No Thyroid Disease: No Ulcer: No ?: Not : 0 Para: 0 Past Surgical History AICD: No Appendectomy: No Arteriovenous Shunt: No Cholecystectomy: No Insulin Pump: No Joint Replacement: No Pacemaker: No Other Surgery: No Social History Alcohol Use: Yes (10 shots rum) Tobacco Use: Yes Substance Use: Yes Allergies-Medications (Allergen,Severity, Reaction): Coded Allergies: No Known Allergies (Verified , 02/11/17) Reported Meds & Prescriptions Reported Meds & Active Scripts Active Reported Trazodone (Trazodone HCl) 150 Mg Tab 150 Mg PO HS Prozac (Fluoxetine HCl) 20 Mg Cap 20 Mg PO DAILY Buspirone (Buspirone HCl) 10 Mg Tab 10 Mg PO TID Latuda (Lurasidone) 40 Mg Tab 40 Mg PO DAILY Review of Systems ROS Limitations: Altered Mental Status Physical Exam Narrative GENERAL: Well-nourished, well-developed patient. Patient is somnolent. Arouses to to painful stimuli. SKIN: Warm and dry. Patient has multiple self inflicted superficial acute lacerations to her right and left forearms. Patient is a known cutter and has multiple, multiple, multiple old scars. HEAD: Normocephalic and atraumatic. EYES: No scleral icterus. No injection or drainage. ENT: No nasal drainage noted. Mucous membranes pink. Airway patent. NECK: Supple, trachea midline. Moves head freely without obvious discomfort. CARDIOVASCULAR: Regular rate and rhythm without murmurs, gallops, or rubs. RESPIRATORY: Breath sounds equal bilaterally. No accessory muscle use. GASTROINTESTINAL: Abdomen soft, non-tender, nondistended. EXTREMITIES: No cyanosis or edema. BACK: Nontender without obvious deformity. No CVA tenderness. NEURO: Patient is altered. She is unable to answer questions. Data Data Last Documented VS Vital Signs Date Time Temp Pulse Resp B/P Pulse Ox O2 Delivery O2 Flow Rate FiO2 04/01/17 23:34 18 04/01/17 23:31 97.6 93 97/57 95 [facility] Medical Decision Making Medical Screen Exam Complete: Yes Emergency Medical Condition: Yes Medical Record Reviewed: Yes Differential Diagnosis MDM: High Differential diagnoses: Schizophrenia, schizoaffective disorder, bipolar, anxiety, depression, adjustment reaction, mood disorder NOS, ODD, depressive disorder NOS, dementia, dementia with agitation, psychosis NOS, substance induced mood disorder, intermittent explosive disorder, Asperger syndrome, infection,electrolyte abnormality, malingering. Narrative Course Mental health screening discussed with the patient. Psychiatric screen ordered. The patient's lacerations have been cleansed, Steri-Stripped and dressed by the nursing staff. The patient is medically cleared. The patient will be transferred back to [facility]. Diagnosis Primary Impression: Borderline personality disorder in adult Additional Impressions: Self-mutilation Polysubstance abuse Patient Instructions: General Instructions Additional Instructions: Rest. Local wound care. Follow-up with tray barton from [facility]. Disposition: 65 DISC TO PSYCH CARE FACILITY Condition: Stable Jonatan Eisenberg Apr 01, 2017 23:55
[2017-04-02 00:24] LABS: AUTOMATED NEUTROPHIL # 5.1 TH/MM3 (1.8-7.7); BASOPHIL % 0.6 % (0.0-2.0); EOSINOPHIL % 0.6 % (0.0-4.0); HEMATOCRIT 36.4 % (35.0-46.0); HEMO FLAGS DIFF FINAL; LYMPH % 16.7 % (9.0-44.0); LYMPHOCYTE # 1.1 TH/MM3 (1.0-4.8); MEAN CELL VOLUME 78.1 FL (80.0-100.0); MEAN CORPUSCULAR HEMOGLOBIN 25.1 PG (27.0-34.0); MEAN CORPUSCULAR HGB CONC 32.2 % (32.0-36.0); MONO % 5.7 % (0.0-8.0); NEUT % 76.4 % (16.0-70.0); PLATELET COUNT 211 TH/MM3 (150-450); RED BLOOD COUNT 4.67 MIL/MM3 (4.00-5.30); RED CELL DISTRIBUTION WIDTH 18.8 % (11.6-17.2); WHITE BLOOD COUNT 6.7 TH/MM3 (4.0-11.0)
[2017-04-02 00:34] LABS: ACETAMINOPHEN LESS THAN 2.0 MCG/ML (10.0-30.0); ALKALINE PHOSPHATASE 112 U/L (45-117); ALT (GPT) 117 U/L (10-53); ANION GAP 12 MEQ/L (5-15); AST (GOT) 100 U/L (15-37); BLOOD UREA NITROGEN 5 MG/DL (7-18); CHLORIDE 107 MEQ/L (98-107); GLOMERULAR FILTRATION RATE 110 ML/MIN (>89); POTASSIUM 3.5 MEQ/L (3.5-5.1); SODIUM (NA) 141 MEQ/L (136-145); TOTAL BILIRUBIN ADULT 0.1 MG/DL (0.2-1.0)
[2017-04-02 00:40] LABS: CALCIUM-PROTEIN CORRECTED 7.4 MG/DL (8.5-10.1)
[2017-04-02] MEDS ORDERED: CALCIUM GLUCONATE 500 MG TAB PO ONE (00:45)
[2017-04-02 01:50] VITALS: PULSE 90; RESP 16; O2SAT 95
== END 2017-04-02 04:17 ==
LOC: NEPD 23:13
DX: F60.3 Borderline personality disorder (principal); S51.812A Laceration without foreign body of left forearm, initial encounter; S51.811A Laceration without foreign body of right forearm, initial encounter; F19.10 Other psychoactive substance abuse, uncomplicated; Z91.5 Personal history of self-harm; Z72.0 Tobacco use
CPT/HCPCS: 80053; 80307; 84703; 85025; 99283

== ENCOUNTER 2017-10-01 18:56 | Emergency (ER) | payer OTHER ==
[~2017-10-01 18:56] MED LIST changes: +ABIL10TA8 PO; +FLUO20CA12 PO; -LURA40 PO; +OLAN5TAB PO; -TRAZ150T75 PO; +TRAZ1TAB14 PO; +TRAZ50TA12 PO
[2017-10-01] MEDS ORDERED: LORazepam 2 MG/ML VIAL ONE (19:31)
[2017-10-01] MEDS ORDERED: OLANZapine IM 10 MG VIAL IM ONE ×2 (19:31→19:45)
--- NOTE | 2017-10-01 19:33 | PD ---
HPI Chief Complaint: BA, Cutting L Arm Time Seen by Provider: 19:21 Travel History International Travel<30 days: No Contact w/Intl Traveler<30days: No History of Present Illness HPI 27 yo F arrives as BA. Pt cut L forearm several times with a razor c/w numerous prior episodes. Pt drank five shots of alcohol over past three hours. She denies intent to harm others. Location neuropsych. Severity moderate timing constant. Pt refuses sutures for repair of L forearm. She reports tetanus immunization within past 1 year. Location skin. Timing constant. Severity moderate. PFSH Past Medical History ADHD: No Arthritis: No Asthma: No Autoimmune Disease: No Blood Disorders: No Bipolar Disorder: Yes Anxiety: Yes Depression: Yes Heart Rhythm Problems: Yes Cancer: No (per pt) Cardiovascular Problems: Yes (Heart murmur) High Cholesterol: No Chemotherapy: No Chest Pain: No Congestive Heart Failure: No COPD: No Cerebrovascular Accident: No Diabetes: No (per pt) Diminished Hearing: No Endocrine: No Gastrointestinal Disorders: No GERD: No Glaucoma: No Genitourinary: No Headaches: No (per pt) Hepatitis: No Hiatal Hernia: No Hypertension: No Immune Disorder: No Kidney Stones: No Musculoskeletal: No Neurologic: Yes Psychiatric: Yes (Schizoaffective disorder, borderline personality disorder, anxiety disorder) Reproductive: No (HCG IS NEGATIVE) Respiratory: No Immunizations Current: Yes Migraines: No Myocardial Infarction: No Radiation Therapy: No Renal Failure: No Seizures: No (per pt) Sickle Cell Disease: No Sleep Apnea: No Thyroid Disease: No Ulcer: No : 0 Para: 0 Past Surgical History AICD: No Appendectomy: No Arteriovenous Shunt: No Cholecystectomy: No Insulin Pump: No Joint Replacement: No Pacemaker: No Other Surgery: No Social History Alcohol Use: Yes Tobacco Use: Yes Substance Use: Yes Allergies-Medications (Allergen,Severity, Reaction): Coded Allergies: No Known Allergies (Verified Allergy, Unknown, 08/20/17) Reported Meds & Prescriptions Reported Meds & Active Scripts Active Buspirone (Buspirone HCl) 10 Mg Tab 5 Mg PO TID 30 Days Olanzapine 5 Mg Tab 5 Mg PO HS 30 Days Trazodone (Trazodone HCl) 50 Mg Tab 50 Mg PO HS 30 Days Fluoxetine (Fluoxetine HCl) 20 Mg Capsule 20 Mg PO DAILY 30 Days Reported Abilify (Aripiprazole) 10 Mg Tab 5 Mg PO DAILY Trazodone (Trazodone HCl) 150 Mg Tablet 150 Mg PO HS Prozac (Fluoxetine HCl) 20 Mg Cap 60 Mg PO DAILY Buspirone (Buspirone HCl) 10 Mg Tab 15 Mg PO TID Review of Systems Except as stated in HPI: all other systems reviewed are Neg General / Constitutional: No: Fever Psychiatric: Positive: Depression, Other (self-harm) Physical Exam Narrative GENERAL: 27 yo F, moderate distress 2/2 anxiety SKIN: Warm and dry. several linear lacerations overlying L forearm approximately 7 in total. longest is approximately 5cm by 1 cm. trace dried blood. no exposed tendons or deep tissue injuries. HEAD: Atraumatic. Normocephalic. EYES: Pupils equal and round. No scleral icterus. No injection or drainage. ENT: No nasal bleeding or discharge. Mucous membranes pink and moist. NECK: Trachea midline. No JVD. CARDIOVASCULAR: Regular rate and rhythm. RESPIRATORY: No accessory muscle use. Clear to auscultation. Breath sounds equal bilaterally. GASTROINTESTINAL: Abdomen soft, non-tender, nondistended. Hepatic and splenic margins not palpable. MUSCULOSKELETAL: Extremities without clubbing, cyanosis, or edema. No obvious deformities. Handgrip equal bilaterally. Normal flexion/extension at wrists bilaterally. NEUROLOGICAL: Awake and alert. No obvious cranial nerve deficits. Motor grossly within normal limits. Five out of 5 muscle strength in the arms and legs. Normal speech. PSYCHIATRIC: Appropriate mood and affect; insight and judgment normal. Data Data Orders Orders Lorazepam Inj (Ativan Inj) (10/01/17 19:31) Olanzapine Inj (Zyprexa Inj) (10/01/17 19:31) Olanzapine Inj (Zyprexa Inj) (10/01/17 19:45) [facility] Medical Decision Making Medical Screen Exam Complete: Yes Emergency Medical Condition: Yes Medical Record Reviewed: Yes Differential Diagnosis suicidal ideation, homicidal ideation, lacerations Narrative Course pt medically clear lacerations repaired by me Procedures Procedure Narrative LACERATION LOCATION: L forearm LENGTH: 5 NUMBER OF STITCHES/FADI: 3 REPAIR: The area of the laceration was prepped with Betadine and sterilely draped. The wound was copiously irrigated and explored without evidence of foreign body, tendon injury or neurovascular injury. The wound was closed using fadi. This was a single layer repair. A sterile dressing was applied. The patient was advised to keep the dressing clean and dry. Patient tolerated the procedure well. LACERATION LOCATION: L forearm LENGTH: 3cm NUMBER OF STITCHES/FADI: 2 REPAIR: The area of the laceration was prepped with Betadine and sterilely draped. The wound was copiously irrigated and explored without evidence of foreign body, tendon injury or neurovascular injury. The wound was closed using fadi. This was a single layer repair. A sterile dressing was applied. The patient was advised to keep the dressing clean and dry. Patient tolerated the procedure well. LACERATION LOCATION: L forearm LENGTH: 4cm NUMBER OF STITCHES/FADI: 3 REPAIR: The area of the laceration was prepped with Betadine and sterilely draped. The wound was copiously irrigated and explored without evidence of foreign body, tendon injury or neurovascular injury. The wound was closed using fadi. This was a single layer repair. A sterile dressing was applied. The patient was advised to keep the dressing clean and dry. Patient tolerated the procedure well. Diagnosis Primary Impression: Borderline personality disorder in adult Additional Impression: Self-mutilation Admitting Information Admitting Physician Requests: Observation Sang Lujan MD Oct 01, 2017 19:33
[2017-10-01 21:51] VITALS: BP 85/42; PULSE 130; RESP 16; TEMP 98.2; O2SAT 95
[2017-10-01 21:57] VITALS: BP 100/52
[2017-10-01 22:18] LABS: AUTOMATED NEUTROPHIL # 3.8 TH/MM3 (1.8-7.7); BASOPHIL % 0.7 % (0.0-2.0); EOSINOPHIL # 0.1 TH/MM3 (0-0.4); EOSINOPHIL % 0.9 % (0.0-4.0); HEMATOCRIT 44.9 % (35.0-46.0); HEMOGLOBIN 14.9 GM/DL (11.6-15.3); LYMPH % 30.3 % (9.0-44.0); LYMPHOCYTE # 1.9 TH/MM3 (1.0-4.8); MEAN CELL VOLUME 91.8 FL (80.0-100.0); MEAN CORPUSCULAR HEMOGLOBIN 30.6 PG (27.0-34.0); MEAN CORPUSCULAR HGB CONC 33.3 % (32.0-36.0); MEAN PLATELET VOLUME 8.8 FL (7.0-11.0); MONO % 5.8 % (0.0-8.0); MONOCYTE # 0.4 TH/MM3 (0-0.9); NEUT % 62.3 % (16.0-70.0); PLATELET COUNT 220 TH/MM3 (150-450); RED BLOOD COUNT 4.89 MIL/MM3 (4.00-5.30); RED CELL DISTRIBUTION WIDTH 15.3 % (11.6-17.2); WHITE BLOOD COUNT 6.1 TH/MM3 (4.0-11.0)
[2017-10-01 22:40] VITALS: BP 84/42; PULSE 120; RESP 16; O2SAT 93
[2017-10-01 22:51] LABS: ALBUMIN 2.9 GM/DL (3.4-5.0); AST (GOT) 29 U/L (15-37); BLOOD UREA NITROGEN 5 MG/DL (7-18); CALCIUM 8.3 MG/DL (8.5-10.1); CHLORIDE 108 MEQ/L (98-107); CREATININE 0.73 MG/DL (0.50-1.00); GLOMERULAR FILTRATION RATE 96 ML/MIN (>89); GLUCOSE,RANDOM 143 MG/DL (74-106); SODIUM (NA) 142 MEQ/L (136-145)
[2017-10-01 22:55] LABS: ALKALINE PHOSPHATASE 95 U/L (45-117); ALT (GPT) 28 U/L (10-53); TOTAL BILIRUBIN ADULT 0.1 MG/DL (0.2-1.0)
[2017-10-01 23:21] VITALS: BP 91/51; PULSE 114; RESP 14; O2SAT 93
[2017-10-01] MEDS ORDERED: SODIUM CHLOR 0.9% 1000 ML INJ 1,000 ML IV SCH (23:23)
[2017-10-01 23:30] VITALS: BP 94/47; PULSE 111; RESP 14; O2SAT 92
[2017-10-01] MEDS ORDERED: SODIUM CHLOR 0.9% 1000 ML INJ 1,000 ML IV ONE (23:30)
[2017-10-02] VITALS: BP 104/53; PULSE 106; RESP 14; O2SAT 93
[2017-10-02 00:22] VITALS: BP 102/58; PULSE 110; RESP 16; O2SAT 93
[2017-10-02 07:01] VITALS: BP 114/73; PULSE 91; RESP 16; TEMP 96; O2SAT 96
--- NOTE | 2017-10-02 09:43 | PD ---
Physical Exam Date Seen by Provider: Oct 02, 2017 Time Seen by Provider: 09:41 Data Data Last Documented VS Vital Signs Date Time Temp Pulse Resp B/P (MAP) Pulse Ox O2 Delivery O2 Flow Rate FiO2 10/02/17 09:49 10/02/17 09:46 91 16 96 Room Air 10/02/17 07:01 96.0 Orders Orders Lorazepam Inj (Ativan Inj) (10/01/17 19:31) Olanzapine Inj (Zyprexa Inj) (10/01/17 19:31) Olanzapine Inj (Zyprexa Inj) (10/01/17 19:45) Complete Blood Count With Diff (10/01/17 20:06) Comprehensive Metabolic Panel (10/01/17 20:06) Ed Urine Pregnancytest Poc (10/01/17 20:06) Psych Screen (10/01/17 20:06) Drug Screen, Random Urine (10/01/17 20:06) Alcohol (Ethanol) (10/01/17 20:06) Iv Access Insert/Monitor (10/01/17 23:23) Ecg Monitoring (10/01/17 23:23) Sodium Chlor 0.9% 1000 Ml Inj (Ns 1000 M (10/01/17 23:23) Sodium Chlor 0.9% 1000 Ml Inj (Ns 1000 M (10/01/17 23:30) Diet Regular Basic (10/02/17 Breakfast) Ed Discharge Order (10/02/17 09:43) Labs Laboratory Tests Test 10/01/17 21:45 10/02/17 09:39 White Blood Count 6.1 TH/MM3 Red Blood Count 4.89 MIL/MM3 Hemoglobin 14.9 GM/DL Hematocrit 44.9 % Mean Corpuscular Volume 91.8 FL Mean Corpuscular Hemoglobin 30.6 PG Mean Corpuscular Hemoglobin Concent 33.3 % Red Cell Distribution Width 15.3 % Platelet Count 220 TH/MM3 Mean Platelet Volume 8.8 FL Neutrophils (%) (Auto) 62.3 % Lymphocytes (%) (Auto) 30.3 % Monocytes (%) (Auto) 5.8 % Eosinophils (%) (Auto) 0.9 % Basophils (%) (Auto) 0.7 % Neutrophils # (Auto) 3.8 TH/MM3 Lymphocytes # (Auto) 1.9 TH/MM3 Monocytes # (Auto) 0.4 TH/MM3 Eosinophils # (Auto) 0.1 TH/MM3 Basophils # (Auto) 0.0 TH/MM3 CBC Comment DIFF FINAL Differential Comment Blood Urea Nitrogen 5 MG/DL Creatinine 0.73 MG/DL Random Glucose 143 MG/DL Total Protein 7.0 GM/DL Albumin 2.9 GM/DL Calcium Level 8.3 MG/DL Alkaline Phosphatase 95 U/L Aspartate Amino Transf (AST/SGOT) 29 U/L Alanine Aminotransferase (ALT/SGPT) 28 U/L Total Bilirubin 0.1 MG/DL Sodium Level 142 MEQ/L Potassium Level 3.8 MEQ/L Chloride Level 108 MEQ/L Carbon Dioxide Level 25.0 MEQ/L Anion Gap 9 MEQ/L Estimat Glomerular Filtration Rate 96 ML/MIN Ethyl Alcohol Level 207 MG/DL Urine Opiates Screen NEG Urine Barbiturates Screen NEG Urine Amphetamines Screen NEG Urine Benzodiazepines Screen NEG Urine Cocaine Screen POS Urine Cannabinoids Screen POS MDM Supervised Visit with ADALBERTO: No Narrative Course 27 YO F initially seen by Dr. Luajn and medically cleared. Evaluated by Dr. Traylor and deemed safe for discharge. Plan is to follow up with [facility] Hendrickson. Diagnosis Primary Impression: Borderline personality disorder in adult Additional Impression: Self-mutilation Referrals: [facility] Additional Instruction: Follow up with Gabriele Hendrickson as discussed with Dr. Traylor. Return to the ED for any urgent or emergent medical condition. Disposition: 01 DISCHARGE HOME Condition: Stable Sanaz Vieira Oct 02, 2017 09:43
[2017-10-02 09:46] VITALS: BP 114/73; PULSE 91; RESP 16; O2SAT 96
--- NOTE | 2017-10-02 13:22 | PD.PSY.CON ---
Provisional Diagnosis Admission Date [place] I. Polysubstance dependence including alcohol, cocaine and cannabis [place] II. Borderline personality disorder [place] III. No medical history History of Present Illness Service Psychiatry Consult Requested By ER Reason for Consult Self cutting Primary Care Physician No Primary Care Physician HPI The patient is a 27-year-old woman, domicile with her mother, unemployed, single, with psychiatric history of polysubstance dependence, borderline personality disorder, multiple psychiatric hospitalizations, last hospitalization was last month here at [facility], he has an extensive history of self cutting behavior with no SI, no significant medical history, who arrives as BA with multiple cuts. As per Er Pt cut L forearm several times with a razor c/w numerous prior episodes. Pt drank five shots of alcohol over past three hours. She denies intent to harm others. Location neuropsych. Severity moderate timing constant. Pt refuses sutures for repair of L forearm. She reports tetanus immunization within past 1 year. Location skin. Timing constant. Severity moderate. Toxicology was positive for cannabis and cocaine, BAL was 207. On psychiatric evaluation patient is calm, cooperative, she explains that she was drunk and high last night and she cut herself "to feel something and feel better". Patient denies suicidal and homicidal ideation, she denies visual and auditory hallucinations. Patient is clinically sober at the moment, no symptoms of withdrawal present. Review of Systems Constitutional: DENIES: Diaphoretic episodes, Fatigue, Fever, Weight gain, Weight loss, Chills, Dizziness, Change in appetite, Night Sweats Endocrine: DENIES: Abnorml menstrual pattern, Heat/cold intolerance, Polydipsia , Polyuria, Polyphagia Eyes: DENIES: Blurred vision, Diplopia, Eye inflammation, Eye pain, Vision loss , Photosensitivity, Double Vision Ears, nose, mouth, throat: DENIES: Tinnitus, Hearing loss, Vertigo, Nasal discharge, Oral lesions, Throat pain, Hoarseness, Ear Pain, Running Nose, Epistaxis, Sinus Pain, Toothache, Odynophagia Respiratory: DENIES: Apneas, Cough, Snoring, Wheezing, Hemoptysis, Sputum production, Shortness of breath Cardiovascular: DENIES: Chest pain, Palpitations, Syncope, Dyspnea on Exertion , PND, Lower Extremity Edema, Orthopnea, Claudication Gastrointestinal: DENIES: Abdominal pain, Black stools, Bloody stools, Constipation, Diarrhea, Nausea, Vomiting, Difficulty Swallowing, Anorexia Genitourinary: DENIES: Abnormal vaginal bleeding, Dysmenorrhea, Dyspareunia, Sexual dysfunction, Urinary frequency, Urinary incontinence, Urgency, Hematuria , Dysuria, Nocturia, Vaginal discharge Musculoskeletal: DENIES: Joint pain, Muscle aches, Stiffness, Joint Swelling, Back pain, Neck pain Integumentary: DENIES: Abnormal pigmentation, Pruritus, Rash, Nail changes, Breast masses, Breast skin changes, Nipple discharge Hematologic/lymphatic: DENIES: Bruising, Lymphadenopathy Immunologic/allergic: DENIES: Eczema, Urticaria Neurologic: DENIES: Abnormal gait, Headache, Localized weakness, Paresthesias, Seizures, Speech Problems, Tremor, Poor Balance Psychiatric: DENIES: Anxiety, Confusion, Mood changes, Depression, Hallucinations, Agitation, Suicidal Ideation, Homicidal Ideation, Delusions Past Family Social History Coded Allergies: No Known Allergies (Verified Allergy, Unknown, 08/20/17) Active Scripts Buspirone (Buspirone) 10 Mg Tab, 5 MG PO TID for health for 30 Days, #90 TAB Prov:Tucker Mesa MD 08/23/17 Olanzapine (Olanzapine) 5 Mg Tab, 5 MG PO HS for health for 30 Days, #30 TAB Prov:Tucker Mesa MD 08/23/17 Trazodone (Trazodone) 50 Mg Tab, 50 MG PO HS for health for 30 Days, #30 TAB Prov:Tucker Mesa MD 08/23/17 Fluoxetine (Fluoxetine) 20 Mg Capsule, 20 MG PO DAILY for health for 30 Days, # 30 CAP Prov:Tucker Mesa MD 08/23/17 Reported Medications Aripiprazole (Abilify) 10 Mg Tab, 5 MG PO DAILY, #30 TAB 0 Refills 08/19/17 Trazodone (Trazodone) 150 Mg Tablet, 150 MG PO HS for Control Depression, #30 TAB 0 Refills 08/19/17 Fluoxetine (Prozac) 20 Mg Cap, 60 MG PO DAILY, #30 CAP 0 Refills 10/04/16 Buspirone (Buspirone) 10 Mg Tab, 15 MG PO TID for Anxiety, TAB 0 Refills 10/04/16 Physical Exam Vital Signs Vital Signs Date Time Temp Pulse Resp B/P (MAP) Pulse Ox O2 Delivery O2 Flow Rate FiO2 10/02/17 09:49 10/02/17 09:46 91 16 96 Room Air 10/02/17 07:01 96.0 I/O 10/02/17 10/02/17 10/03/17 08:00 16:00 00:00 Intake Total 1000 ml Balance 1000 ml Lab Results Test 10/01/17 21:45 10/02/17 09:39 White Blood Count 6.1 TH/MM3 Red Blood Count 4.89 MIL/MM3 Hemoglobin 14.9 GM/DL Hematocrit 44.9 % Mean Corpuscular Volume 91.8 FL Mean Corpuscular Hemoglobin 30.6 PG Mean Corpuscular Hemoglobin Concent 33.3 % Red Cell Distribution Width 15.3 % Platelet Count 220 TH/MM3 Mean Platelet Volume 8.8 FL Neutrophils (%) (Auto) 62.3 % Lymphocytes (%) (Auto) 30.3 % Monocytes (%) (Auto) 5.8 % Eosinophils (%) (Auto) 0.9 % Basophils (%) (Auto) 0.7 % Neutrophils # (Auto) 3.8 TH/MM3 Lymphocytes # (Auto) 1.9 TH/MM3 Monocytes # (Auto) 0.4 TH/MM3 Eosinophils # (Auto) 0.1 TH/MM3 Basophils # (Auto) 0.0 TH/MM3 CBC Comment DIFF FINAL Differential Comment Blood Urea Nitrogen 5 MG/DL Creatinine 0.73 MG/DL Random Glucose 143 MG/DL Total Protein 7.0 GM/DL Albumin 2.9 GM/DL Calcium Level 8.3 MG/DL Alkaline Phosphatase 95 U/L Aspartate Amino Transf (AST/SGOT) 29 U/L Alanine Aminotransferase (ALT/SGPT) 28 U/L Total Bilirubin 0.1 MG/DL Sodium Level 142 MEQ/L Potassium Level 3.8 MEQ/L Chloride Level 108 MEQ/L Carbon Dioxide Level 25.0 MEQ/L Anion Gap 9 MEQ/L Estimat Glomerular Filtration Rate 96 ML/MIN Ethyl Alcohol Level 207 MG/DL Urine Opiates Screen NEG Urine Barbiturates Screen NEG Urine Amphetamines Screen NEG Urine Benzodiazepines Screen NEG Urine Cocaine Screen POS Urine Cannabinoids Screen POS Mental Status Examination Appearance: Appropriate Consciousness: Alert Orientation: x4 Motor Activity: Normal gait Speech: Unremarkable Language: Adequate Fund of Knowledge: Adequate Attention and Concentration: Adequate Memory: Unremarkable Mood: Appropriate Affect: Appropriate Thought Process & Associations: Intact Thought Content: Appropriate Hallucination Type: None Delusion Type: None Suicidal Ideation: No Suicidal Plan: No Suicidal Intention: No Homicidal Ideation: No Homicidal Plan: No Homicidal Intention: No Insight: Adequate Judgment: Adequate Assessment & Plan Problem List: (1) Borderline personality disorder in adult ICD Codes: F60.3 - Borderline personality disorder Status: Acute Assessment & Plan: At the moment of this evaluation the patient denies depression, denies anxiety, denies tamela and psychosis. She denies suicidal and homicidal ideation, she denies visual and auditory hallucinations. Self cutting behavior without SI, with anxiety releasing intentions are secondary to poor judgment related with borderline personality disorder. He does not meet criteria for involuntary psychiatric admission at this moment. Hunter act will be lifted. Continue psychiatric care as an outpatient in [facility]. Assessment & Plan Estimated LOS: Dave Goel MD Oct 02, 2017 13:22
== END 2017-10-02 11:25 | disposition home or self-care (01) ==
LOC: NEDAMB 18:56 → NEPJ 10-02 11:25
DX: F60.3 Borderline personality disorder (principal); S51.812A Laceration without foreign body of left forearm, initial encounter; X78.8XXA Intentional self-harm by other sharp object, initial encounter
CPT/HCPCS: 12004; 80053; 80307; 85025; 96360; 96372; 99284; J2060; J7030

== ENCOUNTER 2017-10-15 05:18 | Emergency (ER) | payer OTHER ==
[2017-10-15 05:26] VITALS: BP 108/70; PULSE 88; RESP 14; TEMP 98; O2SAT 99
--- NOTE | 2017-10-15 05:52 | PD ---
HPI Chief Complaint: Psychiatric Symptoms Time Seen by Provider: 05:41 Travel History International Travel<30 days: No Contact w/Intl Traveler<30days: No Traveled to known affect area: No History of Present Illness HPI 27-year-old white female presents to emergency Department under a Hunter act by PD with lacerations to her upper extremities which are self-inflicted. This is a patient well-known to the ER for multiple visits for self-inflicted wounds. The patient has been drinking and doing drugs again tonight. She has had social issues going on at home. Patient has perform self mutilation. The patient was just seen here in the ER a few weeks ago for the same. Patient denies any suicidal homicidal ideation. Up-to-date with immunizations. PFSH Past Medical History ADHD: No Arthritis: No Asthma: No Autoimmune Disease: No Blood Disorders: No Bipolar Disorder: Yes Anxiety: Yes Depression: Yes Heart Rhythm Problems: Yes Cancer: No Cardiovascular Problems: Yes (Heart murmur) High Cholesterol: No Chemotherapy: No Chest Pain: No Congestive Heart Failure: No COPD: No Cerebrovascular Accident: No Diabetes: No Diminished Hearing: No Endocrine: No Gastrointestinal Disorders: No GERD: No Glaucoma: No Genitourinary: No Headaches: No Hepatitis: No Hiatal Hernia: No Heparin Induced Thrombocytopen: No Hypertension: No Immune Disorder: No Implanted Vascular Access Dvce: No Kidney Stones: No Musculoskeletal: No Neurologic: Yes Psychiatric: Yes (Schizoaffective disorder, borderline personality disorder, anxiety disorder) Reproductive: No Respiratory: No Immunizations Current: Yes Migraines: No Myocardial Infarction: No Radiation Therapy: No Renal Failure: No Seizures: No Sickle Cell Disease: No Sleep Apnea: No Thyroid Disease: No Ulcer: No Tetanus Vaccination: < 5 Years ?: Not : 0 Para: 0 Past Surgical History AICD: No Appendectomy: No Arteriovenous Shunt: No Cholecystectomy: No Insulin Pump: No Joint Replacement: No Pacemaker: No Other Surgery: No Social History Alcohol Use: Yes Tobacco Use: Yes Substance Use: Yes Allergies-Medications (Allergen,Severity, Reaction): Coded Allergies: No Known Allergies (Verified Allergy, Unknown, 10/15/17) Reported Meds & Prescriptions Reported Meds & Active Scripts Active Buspirone (Buspirone HCl) 10 Mg Tab 5 Mg PO TID 30 Days Olanzapine 5 Mg Tab 5 Mg PO HS 30 Days Trazodone (Trazodone HCl) 50 Mg Tab 50 Mg PO HS 30 Days Fluoxetine (Fluoxetine HCl) 20 Mg Capsule 20 Mg PO DAILY 30 Days Reported Abilify (Aripiprazole) 10 Mg Tab 5 Mg PO DAILY Trazodone (Trazodone HCl) 150 Mg Tablet 150 Mg PO HS Prozac (Fluoxetine HCl) 20 Mg Cap 60 Mg PO DAILY Buspirone (Buspirone HCl) 10 Mg Tab 15 Mg PO TID Review of Systems General / Constitutional: No: Fever Eyes: No: Visual changes HENT: No: Headaches Cardiovascular: No: Chest Pain or Discomfort Respiratory: No: Shortness of Breath Gastrointestinal: No: Abdominal Pain Genitourinary: No: Dysuria Musculoskeletal: No: Pain Skin: No Rash Neurologic: No: Weakness Psychiatric: Positive: Depression, Mood Disorder, Substance Abuse, No: Anxiety , Suicidal Ideations, Disorder of Thought, Homicidal Ideation Endocrine: No: Polydipsia Hematologic/Lymphatic: No: Easy Bruising Physical Exam Narrative GENERAL: This is a well-nourished, well-developed patient, in no apparent distress. SKIN: No rashes, ecchymoses or lesions. Warm and dry. Patient has multiple lacerations involving the left forearm as well as a laceration to the right forearm. Patient also has acute lacerations to her left thigh. Patient has healing lacerations to the right forearm which have been stapled in the past. HEAD: Atraumatic. Normocephalic. EYES: PERRL, EOMI, no discharge or injection. No scleral icterus. EARS: Clear NOSE: Nasal turbinates appear normal. THROAT: Mucosa pink and moist. Airway patent. NECK: Trachea midline. supple, moves head freely. LUNGS: Clear to auscultation. CV: Regular in rhythm. ABDOMEN: Soft nontender. EXT: No clubbing cyanosis or edema. Data Data Last Documented VS Vital Signs Date Time Temp Pulse Resp B/P (MAP) Pulse Ox O2 Delivery O2 Flow Rate FiO2 10/15/17 05:31 88 10/15/17 05:26 98.0 14 108/70 (83) 99 Orders Orders Psych Screen (10/15/17 06:05) MDM Medical Decision Making Medical Screen Exam Complete: Yes Emergency Medical Condition: Yes Medical Record Reviewed: Yes Differential Diagnosis MDM: High Differential diagnoses: Fracture, sprain, strain, dislocation, contusion, neurovascular injury, borderline personality disorder, polysubstance abuse, self -mutilation Narrative Course The patient has perform self related cutting again. She has a history of substance abuse. Patient's wounds are closed with fadi. Procedures Procedure Narrative LACERATION LOCATION: Right forearm LENGTH: 6 cm NUMBER OF STITCHES/FADI: 3 REPAIR: The area of the laceration was prepped with Betadine and sterilely draped. The wound was copiously irrigated and explored without evidence of foreign body, tendon injury or neurovascular injury. The wound was closed using fadi. This was a simple single layer repair. A sterile dressing was applied. LACERATION LOCATION: Right forearm LENGTH: 6 cm NUMBER OF STITCHES/FADI: 3 REPAIR: The area of the laceration was prepped with Betadine and sterilely draped. The wound was copiously irrigated and explored without evidence of foreign body, tendon injury or neurovascular injury. The wound was closed using fadi. This was a simple single layer repair. A sterile dressing was applied. LACERATION LOCATION: Right forearm LENGTH: 4 cm NUMBER OF STITCHES/FADI: 2 REPAIR: The area of the laceration was prepped with Betadine and sterilely draped. The wound was copiously irrigated and explored without evidence of foreign body, tendon injury or neurovascular injury. The wound was closed using fadi. This was a simple single layer repair. A sterile dressing was applied. LACERATION LOCATION: Right forearm LENGTH: 4 cm NUMBER OF STITCHES/FADI: 2 REPAIR: The area of the laceration was prepped with Betadine and sterilely draped. The wound was copiously irrigated and explored without evidence of foreign body, tendon injury or neurovascular injury. The wound was closed using fadi. This was a simple single layer repair. A sterile dressing was applied. LACERATION LOCATION: Right forearm LENGTH:3 cm NUMBER OF STITCHES/FADI: 2 REPAIR: The area of the laceration was prepped with Betadine and sterilely draped. The wound was copiously irrigated and explored without evidence of foreign body, tendon injury or neurovascular injury. The wound was closed using fadi. This was a simple single layer repair. A sterile dressing was applied. LACERATION LOCATION: Right forearm LENGTH: 3 cm NUMBER OF STITCHES/FADI: 2 REPAIR: The area of the laceration was prepped with Betadine and sterilely draped. The wound was copiously irrigated and explored without evidence of foreign body, tendon injury or neurovascular injury. The wound was closed using fadi. This was a simple single layer repair. A sterile dressing was applied. LACERATION LOCATION: Left forearm LENGTH: 4 cm NUMBER OF STITCHES/FADI: 2 REPAIR: The area of the laceration was prepped with Betadine and sterilely draped. The wound was copiously irrigated and explored without evidence of foreign body, tendon injury or neurovascular injury. The wound was closed using fadi. This was a simple single layer repair. A sterile dressing was applied. LACERATION LOCATION: Left forearm LENGTH: 4 cm NUMBER OF STITCHES/FADI: 2 REPAIR: The area of the laceration was prepped with Betadine and sterilely draped. The wound was copiously irrigated and explored without evidence of foreign body, tendon injury or neurovascular injury. The wound was closed using fadi. This was a simple single layer repair. A sterile dressing was applied. LACERATION LOCATION: Left forearm LENGTH: 3 cm NUMBER OF STITCHES/FADI: 2 REPAIR: The area of the laceration was prepped with Betadine and sterilely draped. The wound was copiously irrigated and explored without evidence of foreign body, tendon injury or neurovascular injury. The wound was closed using fadi. This was a simple single layer repair. A sterile dressing was applied. LACERATION LOCATION: Left forearm LENGTH: 6 cm NUMBER OF STITCHES/FADI: 7 REPAIR: The area of the laceration was prepped with Betadine and sterilely draped. The wound was copiously irrigated and explored without evidence of foreign body, tendon injury or neurovascular injury. The wound was closed using fadi. This was a simple single layer repair. A sterile dressing was applied. LACERATION LOCATION: Left forearm LENGTH: 4 cm NUMBER OF STITCHES/FADI:3 REPAIR: The area of the laceration was prepped with Betadine and sterilely draped. The wound was copiously irrigated and explored without evidence of foreign body, tendon injury or neurovascular injury. The wound was closed using fadi. This was a simple single layer repair. A sterile dressing was applied. LACERATION LOCATION: Left forearm LENGTH: 5 cm NUMBER OF STITCHES/FADI: 3 REPAIR: The area of the laceration was prepped with Betadine and sterilely draped. The wound was copiously irrigated and explored without evidence of foreign body, tendon injury or neurovascular injury. The wound was closed using fadi. This was a simple single layer repair. A sterile dressing was applied. LACERATION LOCATION: Left forearm LENGTH: 6 cm NUMBER OF STITCHES/FADI: 3 REPAIR: The area of the laceration was prepped with Betadine and sterilely draped. The wound was copiously irrigated and explored without evidence of foreign body, tendon injury or neurovascular injury. The wound was closed using fadi. This was a simple single layer repair. A sterile dressing was applied. Diagnosis Primary Impression: Self-mutilation Additional Impressions: Multiple lacerations Borderline personality disorder in adult Polysubstance abuse Patient Instructions: General Instructions Additional Instructions: Rest. Elevation. Tylenol and Advil for pain. Daily wound care with soap, water, Neosporin. Sutures out in 9 days. Return to the ER if any problems. Med/Other Pt SpecificInfo: Wound Care Condition: Stable Jonatan Eisebnerg Oct 15, 2017 05:52
--- NOTE | 2017-10-15 10:35 | PD ---
Physical Exam Date Seen by Provider: Oct 15, 2017 Time Seen by Provider: 10:33 Narrative 27 y/o female with Hx self mutilation with total of 9 superficial lacerations repaired in ED and Medically Cleared for Psychiatric Evaluation under the Hunter Act. Patient was seen and psychiatrically cleared by psychiatric doctor. Patient continues to be medically cleared for discharge. Patient follow-up as discussed with psychiatric services. Data Data Last Documented VS Vital Signs Date Time Temp Pulse Resp B/P (MAP) Pulse Ox O2 Delivery O2 Flow Rate FiO2 10/15/17 05:31 88 10/15/17 05:26 98.0 14 108/70 (83) 99 Orders Orders Psych Screen (10/15/17 06:05) Diet Regular Basic (10/15/17 Breakfast) Diet Regular Basic (10/15/17 Lunch) Ed Discharge Order (10/15/17 10:36) MDM Medical Record Reviewed: Yes Supervised Visit with ADALBERTO: Yes Narrative Course 27 y/o female with Hx self mutilation with total of 9 superficial lacerations repaired in ED and Medically Cleared for Psychiatric Evaluation under the Hunter Act. Patient was seen and psychiatrically cleared by psychiatric doctor. Patient continues to be medically cleared for discharge. Patient follow-up as discussed with psychiatric services. Diagnosis Primary Impression: Self-mutilation Additional Impressions: Borderline personality disorder in adult Polysubstance abuse Multiple lacerations Patient Instructions: General Instructions Additional Instruction: Rest. Elevation. Tylenol and Advil for pain. Daily wound care with soap, water, Neosporin. Sutures out in 9 days. Return to the ER if any problems. Med/Other Pt SpecificInfo: Wound Care Disposition: 01 DISCHARGE HOME Condition: Stable Romario Olea Oct 15, 2017 10:35
--- NOTE | 2017-10-15 14:06 | MB ---
cc: JEFFRY ROSARIO DATE OF CONSULTATION: 10/15/2017. REASON FOR CONSULTATION: Hunter Act. PHYSICIAN REQUESTING CONSULTATION: Emergency department. HISTORY OF PRESENT ILLNESS: Ms. Paz is a 27-year-old female with a history of borderline personality disorder and non suicidal self-injurious behavior well-known to the psychiatric service here for multiple emergency department visits in the context of cutting behavior. She was brought into the emergency department on this occasion by law enforcement after she sent Facebook photos to [employer] containing images of patient status post self-injury. Reviewing the electronic medical record, I note that the patient was seen most recently in consultation by Dr. Jackson earlier this month. The patient seen and examined with nurse. Chart reviewed. Case discussed with nursing staff. On my examination today, the patient appears to be in good spirits, and is generally euthymic. She reports that the self injury in which she has engaged is characteristic of her normal non-suicidal self injury. She denies any actual suicidal or homicidal ideation, intent or plan on direct questioning and contracts for safety. Mood is fair and I can elicit no depressive or hypomanic / manic symptoms in this patient at this time. There are no psychotic symptoms, and in particular the patient denies any audiovisual hallucinations, nor can I elicit any delusional material. She does admit to some anxiety but does not report any particular worries. The remainder of the psychiatric review of systems is negative. The patient has no acute physical complaints. The patient is requesting discharge from the emergency room this morning. PAST PSYCHIATRIC HISTORY: The patient has a history of borderline personality disorder. She follows psychiatrically at [facility] and is prescribed Prozac, BuSpar and trazodone and reports that she is adherent with these medications. She reports that she has a therapist at [facility] whom she sees about once a month. Her most recent psychiatric admission was here at [place] in August of this year for a brief stay under Dr. Mesa. She denies any history of hodan colin suicide attempts. FAMILY HISTORY: The patient denies any family history of serious mental illness or suicide. CHEMICAL DEPENDENCY HISTORY: The patient reports ongoing cannabis use. She does note that she has somewhat decreased her consumption of alcohol and denies that her alcohol use is related to her non suicidal self-injurious behavior; however, she does say that her substance use remains problematic and, "I need to do something" about the substance use. SOCIAL HISTORY: The patient has been staying with her mother and says that this environment is generally supportive. She is single with no children. She has a tenth grade education. She is disabled. She denies any access to guns or firearms. PAST MEDICAL HISTORY: See electronic medical record. MEDICATIONS: Include 1. Prozac. 2. BuSpar. 3. Trazodone as noted above. ALLERGIES: No known allergies. REVIEW OF SYSTEMS: Except as noted in the history of present illness, this is negative. PHYSICAL EXAMINATION: VITAL SIGNS: Temperature 98.0, pulse 88, respirations 17, blood pressure 108/70, pulse oximetry 99% on room air. Physical examination completed by the ED provider. On my examination today, the patient appears to be in no acute physical distress. She does have numerous healed scars on her bilateral forearms as well as some fresh wounds that have been stapled. No motor abnormalities noted. LABORATORY: No laboratories were obtained this admission. MENTAL STATUS EXAMINATION: The patient is in hospital attire. She is well-groomed. She has numerous tattoos and pink hair. She is awake and alert and oriented x4. No motor abnormalities noted. Speech is within normal limits for rate, tone and volume. Language and fund of knowledge are average. Focus and concentration are intact. Memory is grossly intact on clinical exam. Mood is fair and affect is full and reactive. Thought process linear. No loosening of associations. No delusional material elicited. Denies audiovisual hallucinations and does not appear internally stimulated. Denies any actual suicidal or homicidal ideation, intent or plan on direct questioning and contracts for safety. No reported ongoing urge to self injure at this time. Insight and judgment are likely chronically poor. ASSESSMENT AND PLAN: 1. Borderline personality disorder, F60.3 2. Polysubstance abuse including cannabis and alcohol, F19.10 This is a 27-year-old female with psychiatric history as detailed above who presents under a Hunter Act. The patient is well-known to the psychiatric service here and has a longstanding history of non suicidal self-injurious behavior, namely cutting in the setting of her borderline personality disorder. There is nothing to indicate that today's self injury is anything other than non suicidal self injury in the setting of her borderline personality disorder. There is no evidence of unstable mental illness as defined under the Hunter Act. She denies SI/HI now. She appears to be attending to her basic needs. Synthesizing all of this information and weighing the relevant factors, I justice court judge that the patient does not presently meet the Hunter Act criteria. I have lifted the Hunter Act. I have recommended that she step-up the frequency of her psychotherapy. I have encouraged chemical dependency evaluation and treatment, and in fact have tried to convince her to allow us to refer her directly from the emergency department to a chemical dependency treatment program, but she has unfortunately declined. We will provide her instead with outpatient resources for same. I have counseled the patient to return to the psychiatric emergency room for any concerning psychiatric symptoms as part of a general safety plan. Patient is psychiatrically cleared for discharge from the emergency department. Thank you very much for this consultation. Jeffry Rosario DC/BHANU /10:52 AM /1:39 PM MARSHALL
== END 2017-10-15 12:26 | disposition home or self-care (01) ==
LOC: NED 05:18 → NEPJ 12:26
DX: S51.811A Laceration without foreign body of right forearm, initial encounter (principal); S51.812A Laceration without foreign body of left forearm, initial encounter; F60.3 Borderline personality disorder; F19.10 Other psychoactive substance abuse, uncomplicated; X78.9XXA Intentional self-harm by unspecified sharp object, initial encounter
CPT/HCPCS: 12007

== ENCOUNTER 2017-10-20 18:44 | Emergency (ER) | payer OTHER ==
[~2017-10-20] VITALS: Ht 157.5 cm; Wt 60.0 kg
[2017-10-20 18:46] VITALS: BP 110/53; PULSE 105; RESP 18; TEMP 97.9; O2SAT 97
--- NOTE | 2017-10-20 19:50 | PD ---
HPI Chief Complaint: Wound/Suture/Staple Re-Check Time Seen by Provider: 19:42 Travel History International Travel<30 days: No Contact w/Intl Traveler<30days: No Traveled to known affect area: No History of Present Illness HPI 27-year-old female with a history of borderline personality disorder and substance abuse presents to the emergency room to have fadi removed. Patient is known to be self mutilator and sustained multiple lacerations after cutting herself 5 days ago. She had a total of 13 wounds that required repair with a total of 36 fadi. Patient is extremely noncooperative with history and physical exam. PFSH Past Medical History ADHD: No Arthritis: No Asthma: No Autoimmune Disease: No Blood Disorders: No Bipolar Disorder: Yes Anxiety: Yes Depression: Yes Heart Rhythm Problems: Yes Cancer: No Cardiovascular Problems: Yes (Heart murmur) High Cholesterol: No Chemotherapy: No Chest Pain: No Congestive Heart Failure: No COPD: No Cerebrovascular Accident: No Diabetes: No Diminished Hearing: No Endocrine: No Gastrointestinal Disorders: No GERD: No Glaucoma: No Genitourinary: No Headaches: No Hepatitis: No Hiatal Hernia: No Heparin Induced Thrombocytopen: No Hypertension: No Immune Disorder: No Implanted Vascular Access Dvce: No Kidney Stones: No Musculoskeletal: No Neurologic: Yes Psychiatric: Yes (Schizoaffective disorder, borderline personality disorder, anxiety disorder) Reproductive: No Respiratory: No Immunizations Current: Yes Migraines: No Myocardial Infarction: No Radiation Therapy: No Renal Failure: No Seizures: No Sickle Cell Disease: No Sleep Apnea: No Thyroid Disease: No Ulcer: No ?: Not : 0 Para: 0 Past Surgical History Surgical History: No Previous Surgery AICD: No Appendectomy: No Arteriovenous Shunt: No Cholecystectomy: No Insulin Pump: No Joint Replacement: No Pacemaker: No Other Surgery: No Social History Alcohol Use: Yes (DAILY) Tobacco Use: Yes (1PPD) Substance Use: Yes (Alcohol per pt last night; Marijuanna daily.) Allergies-Medications (Allergen,Severity, Reaction): Coded Allergies: No Known Allergies (Verified Allergy, Unknown, 10/20/17) Reported Meds & Prescriptions Reported Meds & Active Scripts Active Buspirone (Buspirone HCl) 10 Mg Tab 5 Mg PO TID 30 Days Olanzapine 5 Mg Tab 5 Mg PO HS 30 Days Trazodone (Trazodone HCl) 50 Mg Tab 50 Mg PO HS 30 Days Fluoxetine (Fluoxetine HCl) 20 Mg Capsule 20 Mg PO DAILY 30 Days Reported Abilify (Aripiprazole) 10 Mg Tab 5 Mg PO DAILY Trazodone (Trazodone HCl) 150 Mg Tablet 150 Mg PO HS Prozac (Fluoxetine HCl) 20 Mg Cap 60 Mg PO DAILY Buspirone (Buspirone HCl) 10 Mg Tab 15 Mg PO TID Review of Systems Except as stated in HPI: all other systems reviewed are Neg Physical Exam Narrative GENERAL: Well-nourished, well-developed female in no acute distress. Afebrile. Ambulatory with steady gait. SKIN: Focused skin assessment warm/dry. Multiple superficial and deep lacerations to bilateral upper extremities and right thigh. Patient has multiple scars. There is no obvious signs of infection. No drainage, redness, or tenderness to palpation. HEAD: Normocephalic. EYES: No scleral icterus. No injection or drainage. NECK: Supple, trachea midline. No JVD or lymphadenopathy. CARDIOVASCULAR: Regular rate and rhythm without murmurs, gallops, or rubs. RESPIRATORY: Breath sounds equal bilaterally. No accessory muscle use. PSYCHIATRIC: No delusional thought processes. No hallucinations. Data Data Last Documented VS Vital Signs Date Time Temp Pulse Resp B/P (MAP) Pulse Ox O2 Delivery O2 Flow Rate FiO2 10/20/17 18:46 97.9 105 18 110/53 (72) 97 Room Air MDM Medical Decision Making Medical Screen Exam Complete: Yes Emergency Medical Condition: Yes Medical Record Reviewed: Yes Differential Diagnosis Lacerations, staple removal, depression, adjustment disorder, borderline personality disorder Narrative Course 27-year-old female with history of borderline personality disorder presents to the emergency room to have fadi removed. She sustained 13 lacerations after self mutilating 5 days ago. She has a total of [address] Physical exam reveals multiple healing lacerations to bilateral upper extremities and right side. No evidence of infection. Patient is noncooperative and slightly aggressive secondary to her personality disorder and alcohol intoxication. She is alert and oriented to person place and thing. She has chronic alcohol abuse. She is walking with a steady gait. Answering questions appropriately. After removing most of the fadi from the right upper extremity, patient had enough, got up, slammed doors, and stormed out AGAINST MEDICAL ADVICE. She was walking with a steady gait upon discharge. She had a ride with her stepfather who is taking care of her. I was not able to count the number of fadi removed or described which wounds there were removed from because of the patient 's disruptive behavior. Her father was instructed to bring her back tomorrow to have the rest of the fadi removed. Diagnosis Primary Impression: Left against medical advice Disposition: 01 DISCHARGE HOME Condition: Stable Raeann Justin Oct 20, 2017 19:50
== END 2017-10-20 19:59 | disposition left against medical advice (07) ==
LOC: NEPK 18:44
DX: Z48.02 Encounter for removal of sutures (principal); F31.9 Bipolar disorder, unspecified; F41.9 Anxiety disorder, unspecified; F60.3 Borderline personality disorder; R01.1 Cardiac murmur, unspecified; F17.200 Nicotine dependence, unspecified, uncomplicated; F12.90 Cannabis use, unspecified, uncomplicated
CPT/HCPCS: 99281

== ENCOUNTER 2017-11-02 13:53 | Emergency (ER) | payer OTHER ==
[~2017-11-02] VITALS: Ht 154.9 cm; Wt 62.0 kg
[2017-11-02 14:09] VITALS: BP 106/56; PULSE 86; RESP 18; TEMP 98.3; O2SAT 96
--- NOTE | 2017-11-02 14:19 | PD ---
HPI Chief Complaint: Psychiatric Symptoms Time Seen by Provider: 14:03 Travel History International Travel<30 days: No Contact w/Intl Traveler<30days: No Traveled to known affect area: No History of Present Illness HPI 27-year-old female brought in under the Hunter act with question suicidal ideation. Patient is a long history of cutting behavior. Patient has multiple wounds to both upper and lower extremities, which was she was brought in today. She states the last time she actually cut was last evening. She states all of the wounds are superficial and healing. She has no other medical complaints currently. She has no active bleeding currently. No known drug allergies. PFSH Past Medical History ADHD: No Arthritis: No Asthma: No Autoimmune Disease: No Blood Disorders: No Bipolar Disorder: Yes Anxiety: Yes Depression: Yes Heart Rhythm Problems: Yes Cancer: No Cardiovascular Problems: Yes (Heart murmur) High Cholesterol: No Chemotherapy: No Chest Pain: No Congestive Heart Failure: No COPD: No Cerebrovascular Accident: No Diabetes: No Diminished Hearing: No Endocrine: No Gastrointestinal Disorders: No GERD: No Glaucoma: No Genitourinary: No Headaches: No Hepatitis: No Hiatal Hernia: No Heparin Induced Thrombocytopen: No Hypertension: No Immune Disorder: No Implanted Vascular Access Dvce: No Kidney Stones: No Musculoskeletal: No Neurologic: Yes Psychiatric: Yes (Schizoaffective disorder, borderline personality disorder, anxiety disorder) Reproductive: No Respiratory: No Immunizations Current: Yes Migraines: No Myocardial Infarction: No Radiation Therapy: No Renal Failure: No Seizures: No Sickle Cell Disease: No Sleep Apnea: No Thyroid Disease: No Ulcer: No ?: Not LMP: 09/30/17 : 0 Para: 0 Past Surgical History AICD: No Appendectomy: No Arteriovenous Shunt: No Cholecystectomy: No Insulin Pump: No Joint Replacement: No Pacemaker: No Other Surgery: No Social History Alcohol Use: Yes (DAILY) Tobacco Use: Yes (1PPD) Substance Use: Yes Allergies-Medications (Allergen,Severity, Reaction): Coded Allergies: No Known Allergies (Verified Allergy, Unknown, 11/02/17) Reported Meds & Prescriptions Reported Meds & Active Scripts Active Buspirone (Buspirone HCl) 10 Mg Tab 5 Mg PO TID 30 Days Olanzapine 5 Mg Tab 5 Mg PO HS 30 Days Trazodone (Trazodone HCl) 50 Mg Tab 50 Mg PO HS 30 Days Fluoxetine (Fluoxetine HCl) 20 Mg Capsule 20 Mg PO DAILY 30 Days Reported Abilify (Aripiprazole) 10 Mg Tab 5 Mg PO DAILY Trazodone (Trazodone HCl) 150 Mg Tablet 150 Mg PO HS Prozac (Fluoxetine HCl) 20 Mg Cap 60 Mg PO DAILY Buspirone (Buspirone HCl) 10 Mg Tab 15 Mg PO TID Review of Systems Except as stated in HPI: all other systems reviewed are Neg General / Constitutional: No: Fever Eyes: No: Visual changes HENT: No: Headaches Cardiovascular: No: Chest Pain or Discomfort Respiratory: No: Shortness of Breath Gastrointestinal: No: Abdominal Pain Genitourinary: No: Dysuria Musculoskeletal: No: Pain Skin: No Rash Neurologic: No: Weakness Psychiatric: Positive: Mood Disorder, No: Anxiety, Depression, Suicidal Ideations, Substance Abuse, Homicidal Ideation Endocrine: No: Polydipsia Hematologic/Lymphatic: No: Easy Bruising Physical Exam Narrative GENERAL: Patient appears in no acute distress. SKIN: Warm and dry. Patient has multiple facial apparently healing lacerations to the forearms and lower extremities with no current active cellulitis or bleeding. HEAD: Atraumatic. Normocephalic. EYES: Pupils equal and round. No scleral icterus. No injection or drainage. ENT: No nasal bleeding or discharge. Mucous membranes pink and moist. There are. Airway is patent. NECK: Trachea midline. Supple nontender. CARDIOVASCULAR: Regular rate and rhythm. RESPIRATORY: No accessory muscle use. Clear to auscultation. Breath sounds equal bilaterally. MUSCULOSKELETAL: Extremities without clubbing, cyanosis, or edema. No obvious deformities. NEUROLOGICAL: Awake and alert. No obvious cranial nerve deficits. Motor grossly within normal limits. Five out of 5 muscle strength in the arms and legs. Normal speech. PSYCHIATRIC: Appropriate mood and affect; insight and judgment normal. Data Data Last Documented VS Vital Signs Date Time Temp Pulse Resp B/P (MAP) Pulse Ox O2 Delivery O2 Flow Rate FiO2 11/02/17 14:09 98.3 86 18 106/56 (73) 96 Orders Orders Complete Blood Count With Diff (11/02/17 14:11) Comprehensive Metabolic Panel (11/02/17 14:11) Urinalysis - C+S If Indicated (11/02/17 14:11) Ed Urine Pregnancytest Poc (11/02/17 14:11) Psych Screen (11/02/17 14:11) Drug Screen, Random Urine (11/02/17 14:11) Urine Culture (11/02/17 14:24) Nitrofurantoin Monohyd Macrocr (Macrobid (11/02/17 15:15) Labs Laboratory Tests Test 11/02/17 14:24 White Blood Count 6.3 TH/MM3 Red Blood Count 3.73 MIL/MM3 Hemoglobin 11.4 GM/DL Hematocrit 34.2 % Mean Corpuscular Volume 91.6 FL Mean Corpuscular Hemoglobin 30.6 PG Mean Corpuscular Hemoglobin Concent 33.5 % Red Cell Distribution Width 13.9 % Platelet Count 269 TH/MM3 Mean Platelet Volume 8.8 FL Neutrophils (%) (Auto) 66.8 % Lymphocytes (%) (Auto) 23.5 % Monocytes (%) (Auto) 5.9 % Eosinophils (%) (Auto) 2.9 % Basophils (%) (Auto) 0.9 % Neutrophils # (Auto) 4.2 TH/MM3 Lymphocytes # (Auto) 1.5 TH/MM3 Monocytes # (Auto) 0.4 TH/MM3 Eosinophils # (Auto) 0.2 TH/MM3 Basophils # (Auto) 0.1 TH/MM3 CBC Comment DIFF FINAL Differential Comment Urine Color LIGHT-YELLOW Urine Turbidity CLEAR Urine pH 6.5 Urine Specific [place] 1.009 Urine Protein NEG mg/dL Urine Glucose (UA) NEG mg/dL Urine Ketones NEG mg/dL Urine Occult Blood NEG Urine Nitrite NEG Urine Bilirubin NEG Urine Urobilinogen LESS THAN 2.0 MG/DL Urine Leukocyte Esterase NEG Urine RBC 1 /hpf Urine WBC 1 /hpf Urine Squamous Epithelial Cells 1 /hpf Urine Bacteria MANY /hpf Microscopic Urinalysis Comment CULTURE INDICATED Blood Urea Nitrogen 12 MG/DL Creatinine 0.83 MG/DL Random Glucose 107 MG/DL Total Protein 6.6 GM/DL Albumin 2.3 GM/DL Calcium Level 8.6 MG/DL Alkaline Phosphatase 87 U/L Aspartate Amino Transf (AST/SGOT) 17 U/L Alanine Aminotransferase (ALT/SGPT) 17 U/L Total Bilirubin LESS THAN 0.1 MG/DL Sodium Level 142 MEQ/L Potassium Level 4.3 MEQ/L Chloride Level 109 MEQ/L Carbon Dioxide Level 27.0 MEQ/L Anion Gap 6 MEQ/L Estimat Glomerular Filtration Rate 82 ML/MIN Urine Opiates Screen NEG Urine Barbiturates Screen NEG Urine Amphetamines Screen NEG Urine Benzodiazepines Screen NEG Urine Cocaine Screen POS Urine Cannabinoids Screen POS MDM Medical Decision Making Medical Screen Exam Complete: Yes Emergency Medical Condition: Yes Medical Record Reviewed: Yes Differential Diagnosis Behavior disorder. Borderline personality disorder. Self-mutilation. Hunter act. Narrative Course Patient appears medically stable at time of exam. Psychiatric labs ordered per protocol. Urine is ordered. CBC is unremarkable except for a slightly low hemoglobin of 11.4. Urinalysis suggestive of urinary tract infection. Urine culture is placed. Patient is given Macrobid 100 mg by mouth. Urine tox screen is positive for cocaine and marijuana. Chemistries unremarkable. Patient is medically stable for psychiatric evaluation. Diagnosis Primary Impression: Self-mutilation Additional Impressions: Depression Qualified Codes: F32.9 - Major depressive disorder, single episode, unspecified UTI (urinary tract infection) Condition: Stable Romario Olea Nov 02, 2017 14:19
[2017-11-02 14:42] LABS: AUTOMATED NEUTROPHIL # 4.2 TH/MM3 (1.8-7.7); BASOPHIL # 0.1 TH/MM3 (0-0.2); BASOPHIL % 0.9 % (0.0-2.0); EOSINOPHIL # 0.2 TH/MM3 (0-0.4); EOSINOPHIL % 2.9 % (0.0-4.0); HEMATOCRIT 34.2 % (35.0-46.0); HEMOGLOBIN 11.4 GM/DL (11.6-15.3); LYMPH % 23.5 % (9.0-44.0); LYMPHOCYTE # 1.5 TH/MM3 (1.0-4.8); MEAN CELL VOLUME 91.6 FL (80.0-100.0); MEAN CORPUSCULAR HEMOGLOBIN 30.6 PG (27.0-34.0); MEAN CORPUSCULAR HGB CONC 33.5 % (32.0-36.0); MEAN PLATELET VOLUME 8.8 FL (7.0-11.0); MONO % 5.9 % (0.0-8.0); MONOCYTE # 0.4 TH/MM3 (0-0.9); NEUT % 66.8 % (16.0-70.0); PLATELET COUNT 269 TH/MM3 (150-450); RED BLOOD COUNT 3.73 MIL/MM3 (4.00-5.30); RED CELL DISTRIBUTION WIDTH 13.9 % (11.6-17.2); WHITE BLOOD COUNT 6.3 TH/MM3 (4.0-11.0)
[2017-11-02 14:47] LABS: BACTERIA, URINE MANY /hpf; BILIRUBIN, URINE NEG (NEG); BLOOD, URINE NEG (NEG); GLUCOSE,URINE NEG (NEG); KETONE, URINE NEG (NEG); NITRITE,URINE NEG (NEG); PH, URINE 6.5 (5.0-8.5); SQUAMOUS EPITHELIAL CELL URINE 1 /hpf (0-5); URINE COLOR LIGHT-YELLOW (YELLW/STRAW); URINE LEUKOCYTE ESTERASE NEG (NEG)
[2017-11-02] MEDS ORDERED: NITROFURANTOIN MONOHYD MACROCR 100 MG CAP PO ONE (15:15)
[2017-11-02 15:26] LABS: ALBUMIN 2.3 GM/DL (3.4-5.0); ALT (GPT) 17 U/L (10-53); AST (GOT) 17 U/L (15-37); BLOOD UREA NITROGEN 12 MG/DL (7-18); CALCIUM 8.6 MG/DL (8.5-10.1); CHLORIDE 109 MEQ/L (98-107); CREATININE 0.83 MG/DL (0.50-1.00); GLOMERULAR FILTRATION RATE 82 ML/MIN (>89); GLUCOSE,RANDOM 107 MG/DL (74-106); SODIUM (NA) 142 MEQ/L (136-145)
[2017-11-02 15:28] LABS: ALKALINE PHOSPHATASE 87 U/L (45-117); TOTAL BILIRUBIN ADULT LESS THAN 0.1 MG/DL (0.2-1.0); TOTAL PROTEIN 6.6 GM/DL (6.4-8.2)
[2017-11-02 20:34] VITALS: BP 113/71; PULSE 72; RESP 16; TEMP 98.2; O2SAT 99
[2017-11-02] MEDS ORDERED: CLON1 PO (20:43)
[2017-11-02] MEDS ORDERED: SERO50TA PO (20:43)
[2017-11-02] MEDS ORDERED: QUEtiapine FUMARATE 100 MG TAB PO ONE (21:00)
[2017-11-02] MEDS ORDERED: traZODone HCL 100 MG TAB PO ONE (21:00)
[2017-11-02] MEDS ORDERED: PILL SPLITTER OTHER PRN (21:15)
[2017-11-02 22:53] VITALS: BP 109/63; PULSE 77; RESP 17; TEMP 98.1; O2SAT 97
[2017-11-03 02:53] VITALS: BP 109/71; PULSE 68; RESP 17; TEMP 98.6; O2SAT 97
[2017-11-03 05:55] VITALS: RESP 18
[2017-11-03 12:31] VITALS: BP 111/71; PULSE 93; RESP 18; O2SAT 98
--- NOTE | 2017-11-03 12:44 | PD ---
Physical Exam Date Seen by Provider: Nov 03, 2017 Time Seen by Provider: 12:43 Narrative 27-year-old female with long-standing history of cutting, previously medically cleared for psychiatric evaluation, has been seen by the psychiatrist and felt to be psychiatrically stable for discharge to home to mom, with close follow with her psychiatrist. Patient remains medically stable at this time. Data Data Last Documented VS Vital Signs Date Time Temp Pulse Resp B/P (MAP) Pulse Ox O2 Delivery O2 Flow Rate FiO2 11/03/17 12:31 93 18 111/71 (84) 98 Room Air 11/03/17 02:53 98.6 Orders Orders Complete Blood Count With Diff (11/02/17 14:11) Comprehensive Metabolic Panel (11/02/17 14:11) Urinalysis - C+S If Indicated (11/02/17 14:11) Ed Urine Pregnancytest Poc (11/02/17 14:11) Psych Screen (11/02/17 14:11) Drug Screen, Random Urine (11/02/17 14:11) Urine Culture (11/02/17 14:24) Nitrofurantoin Monohyd Macrocr (Macrobid (11/02/17 15:15) Diet Regular Basic (11/02/17 Dinner) Trazodone (Desyrel) (11/02/17 21:00) Quetiapine (Seroquel) (11/02/17 21:00) Pill Splitter (Pill Splitter) (11/02/17 21:15) Diet Regular Basic (11/03/17 Breakfast) Diet Regular Basic (11/03/17 Lunch) Labs Laboratory Tests Test 11/02/17 14:24 White Blood Count 6.3 TH/MM3 Red Blood Count 3.73 MIL/MM3 Hemoglobin 11.4 GM/DL Hematocrit 34.2 % Mean Corpuscular Volume 91.6 FL Mean Corpuscular Hemoglobin 30.6 PG Mean Corpuscular Hemoglobin Concent 33.5 % Red Cell Distribution Width 13.9 % Platelet Count 269 TH/MM3 Mean Platelet Volume 8.8 FL Neutrophils (%) (Auto) 66.8 % Lymphocytes (%) (Auto) 23.5 % Monocytes (%) (Auto) 5.9 % Eosinophils (%) (Auto) 2.9 % Basophils (%) (Auto) 0.9 % Neutrophils # (Auto) 4.2 TH/MM3 Lymphocytes # (Auto) 1.5 TH/MM3 Monocytes # (Auto) 0.4 TH/MM3 Eosinophils # (Auto) 0.2 TH/MM3 Basophils # (Auto) 0.1 TH/MM3 CBC Comment DIFF FINAL Differential Comment Urine Color LIGHT-YELLOW Urine Turbidity CLEAR Urine pH 6.5 Urine Specific [place] 1.009 Urine Protein NEG mg/dL Urine Glucose (UA) NEG mg/dL Urine Ketones NEG mg/dL Urine Occult Blood NEG Urine Nitrite NEG Urine Bilirubin NEG Urine Urobilinogen LESS THAN 2.0 MG/DL Urine Leukocyte Esterase NEG Urine RBC 1 /hpf Urine WBC 1 /hpf Urine Squamous Epithelial Cells 1 /hpf Urine Bacteria MANY /hpf Microscopic Urinalysis Comment CULTURE INDICATED Blood Urea Nitrogen 12 MG/DL Creatinine 0.83 MG/DL Random Glucose 107 MG/DL Total Protein 6.6 GM/DL Albumin 2.3 GM/DL Calcium Level 8.6 MG/DL Alkaline Phosphatase 87 U/L Aspartate Amino Transf (AST/SGOT) 17 U/L Alanine Aminotransferase (ALT/SGPT) 17 U/L Total Bilirubin LESS THAN 0.1 MG/DL Sodium Level 142 MEQ/L Potassium Level 4.3 MEQ/L Chloride Level 109 MEQ/L Carbon Dioxide Level 27.0 MEQ/L Anion Gap 6 MEQ/L Estimat Glomerular Filtration Rate 82 ML/MIN Urine Opiates Screen NEG Urine Barbiturates Screen NEG Urine Amphetamines Screen NEG Urine Benzodiazepines Screen NEG Urine Cocaine Screen POS Urine Cannabinoids Screen POS MDM Medical Record Reviewed: Yes Supervised Visit with ADALBERTO: Yes Narrative Course 27-year-old female with long-standing history of cutting, previously medically cleared for psychiatric evaluation, has been seen by the psychiatrist and felt to be psychiatrically stable for discharge to home to [facility] [place], with close follow with her psychiatrist. Patient remains medically stable at this time. Diagnosis Primary Impression: Self-mutilation Additional Impressions: Depression Qualified Codes: F32.9 - Major depressive disorder, single episode, unspecified UTI (urinary tract infection) Qualified Codes: N30.00 - Acute cystitis without hematuria Patient Instructions: General Instructions Med/Other Pt SpecificInfo: Prescription(s) given Disposition: DISCHARGE HOME Condition: Stable Romario Olea Nov 03, 2017 12:44
[2017-11-03] MEDS ORDERED: CEPH-460 PO (12:45)
--- NOTE | 2017-11-03 12:52 | PD ---
History of Present Illness Chief Complaint: Psychiatric Symptoms Time Seen by Provider: 12:30 Travel History International Travel<30 Days: No Contact w/Intl Traveler<30days: No Known affected area: No Legal Status Legal Status: Hunter Act Hunter Act Signed By: Dayton Clement History of Present Illness: History of Present Illness HPI 27-year-old female with history of underlying personality disorder and nonsuicidal self-injurious behavior who is brought in under the Hunter act. The Hunter act alleges that when the deputies arrived to her house she advised them that she had cut herself with a razor blade. She also stated she did not intent to kill herself. Deputy June observed multiple cuts on both arms. It should be noted she has done this several times in the past. Electronic medical record is reviewed . Patient has had multiple visits to the ED for her nonsuicidal self-injurious behavior. Her last psychiatric admission was in August 20, 2017. Current toxicology is positive for cocaine and cannabinoids. The patient has been monitored in the ED and she has presented no suicidal behavior. The patient seen and examined. Case is discussed with nursing staff. The patient appears to be in good spirits this morning and is generally euthymic. Her speech is clear, logical and coherent. She denies any actual suicidal or homicidal ideation, intent or plan on direct questioning and contracts for safety. I can elicit no depressive or hypomanic or manic symptoms. There are no psychotic symptoms and in particular the patient denies any audiovisual hallucinations,nor can I elicit any delusional material. The remainder of the psychiatric review of systems is negative. The patient has no acute physical complaints. She is requesting discharge from the emergency room. PFSH Past Medical History ADHD: No Arthritis: No Asthma: No Autoimmune Disease: No Blood Disorders: No Bipolar Disorder: Yes Anxiety: Yes Depression: Yes Heart Rhythm Problems: Yes Cancer: No Cardiovascular Problems: Yes (Heart murmur) High Cholesterol: No Chemotherapy: No Chest Pain: No Congestive Heart Failure: No COPD: No Cerebrovascular Accident: No Diabetes: No Diminished Hearing: No Endocrine: No Gastrointestinal Disorders: No GERD: No Glaucoma: No Genitourinary: No Headaches: No Hepatitis: No Hiatal Hernia: No Heparin Induced Thrombocytopen: No Hypertension: No Immune Disorder: No Implanted Vascular Access Dvce: No Kidney Stones: No Musculoskeletal: No Neurologic: Yes Psychiatric: Yes (Schizoaffective disorder, borderline personality disorder, anxiety disorder) Reproductive: No Respiratory: No Immunizations Current: Yes Migraines: No Myocardial Infarction: No Radiation Therapy: No Renal Failure: No Seizures: No Sickle Cell Disease: No Sleep Apnea: No Thyroid Disease: No Ulcer: No ?: Not LMP: 09/30/17 : 0 Para: 0 Past Surgical History AICD: No Appendectomy: No Arteriovenous Shunt: No Cholecystectomy: No Insulin Pump: No Joint Replacement: No Pacemaker: No Other Surgery: No Psychiatric History Psychiatric History Hx Psychiatric Treatment: History of borderline personality disorder and of interest behavior. Multiple admissions. One previous suicide attempt at age 16 years of age. He currently followed at [facility] in [place]. She reports compliance with medication. History of Inpatient Treatment: Yes Guns or firearms in home: No Social History Single, never , lives with her mother and her brother. She is unemployed on Social Security disability. Hx Alcohol Use: Yes (DAILY) Hx Tobacco Use: Yes (1PPD) Hx Substance Use: Yes Substance Use Type: Alcohol, Marijuana, Nicotine/Cigarettes, Cocaine Hx of Substance Use Treatment: Yes Allergies-Medications (Allergen,Severity, Reaction): Coded Allergies: No Known Allergies (Verified Allergy, Unknown, 11/02/17) Reported Meds & Prescriptions Reported Meds & Active Scripts Active Keflex (Cephalexin) 500 Mg Cap 500 Mg PO Q8H 7 Days Reported Klonopin (Clonazepam) 1 Mg Tab 1 Mg PO BID Seroquel (Quetiapine Fumarate) 50 Mg Tab 50 Mg PO BID Trazodone (Trazodone HCl) 150 Mg Tablet 100 Mg PO HS Prozac (Fluoxetine HCl) 20 Mg Cap 40 Mg PO DAILY Buspirone (Buspirone HCl) 10 Mg Tab 15 Mg PO BID Mental Status Examination Appearance: Appropriate Consciousness: Alert Orientation: x4 Motor Activity: Normal gait Speech: Unremarkable Language: Adequate Fund of Knowledge: Adequate Attention and Concentration: Adequate Memory: Unremarkable Mood: Appropriate Affect: Appropriate Thought Process & Associations: Intact, Logical, Goal directed Thought Content: Appropriate Hallucination Type: None Delusion Type: None Suicidal Ideation: No Suicidal Plan: No Suicidal Intention: No Homicidal Ideation: No Homicidal Plan: No Homicidal Intention: No Insight: Adequate Judgment: Impulsive MDM Medical Decision Making Medical Record Reviewed: Yes Assessment/Plan 27-year-old female with history of borderline personality disorder and nonsuicidal self-injurious behavior who presents under Hunter act after she engage in cutting. Patient denies that this was a suicide attempt or brother as her way of coping with conflicts. She denies any suicidal or homicidal ideation. There is no indication that she is experiencing any psychosis or any tamela. The patient contracts for safety at this time. Patient does not meet Hunter act criteria. BA is lifted. will follow up with [facility]. Orders Orders Complete Blood Count With Diff (11/02/17 14:11) Comprehensive Metabolic Panel (11/02/17 14:11) Urinalysis - C+S If Indicated (11/02/17 14:11) Ed Urine Pregnancytest Poc (11/02/17 14:11) Psych Screen (11/02/17 14:11) Drug Screen, Random Urine (11/02/17 14:11) Urine Culture (11/02/17 14:24) Nitrofurantoin Monohyd Macrocr (Macrobid (11/02/17 15:15) Diet Regular Basic (11/02/17 Dinner) Trazodone (Desyrel) (11/02/17 21:00) Quetiapine (Seroquel) (11/02/17 21:00) Pill Splitter (Pill Splitter) (11/02/17 21:15) Diet Regular Basic (11/03/17 Breakfast) Diet Regular Basic (11/03/17 Lunch) Ed Discharge Order (11/03/17 12:45) Results Vital Signs Date Time Temp Pulse Resp B/P (MAP) Pulse Ox O2 Delivery O2 Flow Rate FiO2 11/03/17 12:31 93 18 111/71 (84) 98 Room Air 11/03/17 05:55 18 11/03/17 02:53 98.6 68 17 109/71 (84) 97 Room Air 11/02/17 22:53 98.1 77 17 109/63 (78) 97 Room Air 11/02/17 20:34 98.2 72 16 113/71 (85) 99 Room Air 11/02/17 14:09 98.3 86 18 106/56 (73) 96 Laboratory Tests Test 11/02/17 14:24 White Blood Count 6.3 Red Blood Count 3.73 Hemoglobin 11.4 Hematocrit 34.2 Mean Corpuscular Volume 91.6 Mean Corpuscular Hemoglobin 30.6 Mean Corpuscular Hemoglobin Concent 33.5 Red Cell Distribution Width 13.9 Platelet Count 269 Mean Platelet Volume 8.8 Neutrophils (%) (Auto) 66.8 Lymphocytes (%) (Auto) 23.5 Monocytes (%) (Auto) 5.9 Eosinophils (%) (Auto) 2.9 Basophils (%) (Auto) 0.9 Neutrophils # (Auto) 4.2 Lymphocytes # (Auto) 1.5 Monocytes # (Auto) 0.4 Eosinophils # (Auto) 0.2 Basophils # (Auto) 0.1 CBC Comment DIFF FINAL Differential Comment Urine Color LIGHT-YELLOW Urine Turbidity CLEAR Urine pH 6.5 Urine Specific [place] 1.009 Urine Protein NEG Urine Glucose (UA) NEG Urine Ketones NEG Urine Occult Blood NEG Urine Nitrite NEG Urine Bilirubin NEG Urine Urobilinogen LESS THAN 2.0 Urine Leukocyte Esterase NEG Urine RBC 1 Urine WBC 1 Urine Squamous Epithelial Cells 1 Urine Bacteria MANY Microscopic Urinalysis Comment CULTURE INDICATED Blood Urea Nitrogen 12 Creatinine 0.83 Random Glucose 107 Total Protein 6.6 Albumin 2.3 Calcium Level 8.6 Alkaline Phosphatase 87 Aspartate Amino Transf (AST/SGOT) 17 Alanine Aminotransferase (ALT/SGPT) 17 Total Bilirubin LESS THAN 0.1 Sodium Level 142 Potassium Level 4.3 Chloride Level 109 Carbon Dioxide Level 27.0 Anion Gap 6 Estimat Glomerular Filtration Rate 82 Urine Opiates Screen NEG Urine Barbiturates Screen NEG Urine Amphetamines Screen NEG Urine Benzodiazepines Screen NEG Urine Cocaine Screen POS Urine Cannabinoids Screen POS Date/Time Source Procedure Growth Status 11/02/17 14:24 Urine Clean Catch Urine Culture Pending Worksheet Diagnosis Primary Impression: Borderline personality disorder in adult Additional Impression: Polysubstance abuse Psychiatrically Cleared: Yes Departure Forms: Tests/Procedures Patient Instructions: General Instructions Med/ Other Pt Specific Info: No Change to Meds Prescriptions Cephalexin (Keflex) 500 Mg Cap 500 MG PO Q8H for Infection for 7 Days, #21 CAP 0 Refills Prov: Hector Montaño MD 11/03/17 Disposition: 01 DISCHARGE HOME Condition: Stable Problem Qualifiers Pinky Laboy Nov 03, 2017 12:52
== END 2017-11-03 13:26 | disposition home or self-care (01) ==
LOC: NEPD 13:53 → NEPJ 11-03 13:26
DX: F60.3 Borderline personality disorder (principal); F19.10 Other psychoactive substance abuse, uncomplicated; F31.9 Bipolar disorder, unspecified; F41.9 Anxiety disorder, unspecified; F25.9 Schizoaffective disorder, unspecified; F17.200 Nicotine dependence, unspecified, uncomplicated; Z79.899 Other long term (current) drug therapy
CPT/HCPCS: 80053; 80307; 81001; 84703; 85025; 87086; 99284

== ENCOUNTER 2017-12-24 18:39 | Emergency (ER) | payer OTHER ==
[~2017-12-24] VITALS: Ht 154.9 cm; Wt 70.0 kg
[~2017-12-24 18:39] MED LIST changes: -ABIL10TA8 PO; +CEPH-460 PO; +CLON1 PO; -FLUO20CA12 PO; -OLAN5TAB PO; +SERO50TA PO; -TRAZ50TA12 PO
[2017-12-24 19:17] VITALS: BP 100/50; PULSE 120; RESP 16; TEMP 97.8; O2SAT 100
[2017-12-24 20:21] LABS: AUTOMATED NEUTROPHIL # 4.2 TH/MM3 (1.8-7.7); BASOPHIL # 0.1 TH/MM3 (0-0.2); BASOPHIL % 0.9 % (0.0-2.0); EOSINOPHIL # 0.1 TH/MM3 (0-0.4); EOSINOPHIL % 1.3 % (0.0-4.0); HEMOGLOBIN 11.9 GM/DL (11.6-15.3); LYMPH % 31.7 % (9.0-44.0); LYMPHOCYTE # 2.2 TH/MM3 (1.0-4.8); MEAN CELL VOLUME 84.1 FL (80.0-100.0); MEAN CORPUSCULAR HEMOGLOBIN 28.6 PG (27.0-34.0); MEAN PLATELET VOLUME 8.2 FL (7.0-11.0); MONO % 6.2 % (0.0-8.0); MONOCYTE # 0.4 TH/MM3 (0-0.9); NEUT % 59.9 % (16.0-70.0); PLATELET COUNT 358 TH/MM3 (150-450); RED BLOOD COUNT 4.17 MIL/MM3 (4.00-5.30); RED CELL DISTRIBUTION WIDTH 13.6 % (11.6-17.2); WHITE BLOOD COUNT 7.1 TH/MM3 (4.0-11.0)
[2017-12-24 21:03] LABS: ALBUMIN 2.8 GM/DL (3.4-5.0); AST (GOT) 13 U/L (15-37); BICARBONATE 23.9 MEQ/L (21.0-32.0); BLOOD UREA NITROGEN 11 MG/DL (7-18); CALCIUM 8.8 MG/DL (8.5-10.1); CHLORIDE 107 MEQ/L (98-107); CREATININE 0.76 MG/DL (0.50-1.00); GLOMERULAR FILTRATION RATE 91 ML/MIN (>89); GLUCOSE,RANDOM 91 MG/DL (74-106); SODIUM (NA) 143 MEQ/L (136-145)
[2017-12-24 21:04] LABS: ALT (GPT) 14 U/L (10-53)
[2017-12-24 21:14] LABS: ALKALINE PHOSPHATASE 97 U/L (45-117); TOTAL BILIRUBIN ADULT LESS THAN 0.1 MG/DL (0.2-1.0); TOTAL PROTEIN 7.3 GM/DL (6.4-8.2)
[2017-12-24] MEDS ORDERED: traZODone HCL 50 MG TAB PO ONE (21:45)
[2017-12-24] MEDS ORDERED: diphenhydrAMINE HCL 50 MG/ML VIAL IM ONE (21:45)
[2017-12-24] MEDS ORDERED: QUEtiapine FUMARATE 200 MG TAB PO ONE (21:45)
[2017-12-24] MEDS ORDERED: LORazepam 2 MG/ML VIAL IM ONE (21:45)
--- NOTE | 2017-12-24 21:48 | PD ---
HPI Chief Complaint: Psychiatric Symptoms Time Seen by Provider: 21:33 Travel History International Travel<30 days: No Contact w/Intl Traveler<30days: No Traveled to known affect area: No History of Present Illness HPI This is a 27-year-old female with history of borderline personality disorder who presents under [place] act initiated by the [employer]. According to her paperwork the patient has a history of cutting. She was found in the bathroom with a knife and had sent text messages to her stepfather including photos of old injuries.. The patient reports that she was just texting with her stepfather about various things and happened to send those pictures. She denies any suicidal intent or self-harm intent. She denies hurting herself today. She reports that the folds were old. She is currently very agitated and was uncooperative upon presenting to the psychiatric portion of the emergency room. She hit her head against a wall, punched a window, broke a fire alarm. This required the use of restraints. She will be given her nighttime doses of trazodone 150 mg as well as Seroquel 400 mg. In addition 1 mg of Ativan and 50 mg of Benadryl have been ordered. The patient has no medical complaints at this time. PFSH Past Medical History ADHD: No Arthritis: No Asthma: No Autoimmune Disease: No Blood Disorders: No Bipolar Disorder: Yes Anxiety: Yes Depression: Yes Heart Rhythm Problems: Yes Cancer: No Cardiovascular Problems: Yes (Heart murmur) High Cholesterol: No Chemotherapy: No Chest Pain: No Congestive Heart Failure: No COPD: No Cerebrovascular Accident: No Diabetes: No Diminished Hearing: No Endocrine: No Gastrointestinal Disorders: No GERD: No Glaucoma: No Genitourinary: No Headaches: No Hepatitis: No Hiatal Hernia: No Heparin Induced Thrombocytopen: No Hypertension: No Immune Disorder: No Implanted Vascular Access Dvce: No Kidney Stones: No Musculoskeletal: No Neurologic: Yes Psychiatric: Yes (Schizoaffective disorder, borderline personality disorder, anxiety disorder) Reproductive: No Respiratory: No Immunizations Current: Yes Migraines: No Myocardial Infarction: No Radiation Therapy: No Renal Failure: No Seizures: No Sickle Cell Disease: No Sleep Apnea: No Thyroid Disease: No Ulcer: No ?: Unknown LMP: NOV 2017 : 0 Para: 0 Past Surgical History AICD: No Appendectomy: No Arteriovenous Shunt: No Cholecystectomy: No Insulin Pump: No Joint Replacement: No Pacemaker: No Other Surgery: No Social History Alcohol Use: Yes (DAILY) Tobacco Use: Yes (1PPD) Substance Use: Yes Allergies-Medications (Allergen,Severity, Reaction): Coded Allergies: No Known Allergies (Verified Allergy, Unknown, 11/02/17) Reported Meds & Prescriptions Reported Meds & Active Scripts Active Keflex (Cephalexin) 500 Mg Cap 500 Mg PO Q8H 7 Days Reported Klonopin (Clonazepam) 1 Mg Tab 1 Mg PO BID Seroquel (Quetiapine Fumarate) 50 Mg Tab 50 Mg PO BID Trazodone (Trazodone HCl) 150 Mg Tablet 100 Mg PO HS Prozac (Fluoxetine HCl) 20 Mg Cap 40 Mg PO DAILY Buspirone (Buspirone HCl) 10 Mg Tab 15 Mg PO BID Review of Systems Except as stated in HPI: all other systems reviewed are Neg Physical Exam Narrative GENERAL: Well-developed well-nourished female who is agitated and restless SKIN: Warm and dry. Old linear scars noted to the arms. No obvious open wounds. HEAD: Atraumatic. Normocephalic. EYES: Pupils equal and round. No scleral icterus. No injection or drainage. ENT: No nasal bleeding or discharge. Mucous membranes pink and moist. NECK: Trachea midline. No JVD. CARDIOVASCULAR: Regular rate and rhythm. No murmur appreciated. RESPIRATORY: No accessory muscle use. Clear to auscultation. Breath sounds equal bilaterally. GASTROINTESTINAL: Abdomen soft, non-tender, nondistended. Hepatic and splenic margins not palpable. MUSCULOSKELETAL: No obvious deformities. No clubbing. No cyanosis. No edema. NEUROLOGICAL: Awake and alert. No obvious cranial nerve deficits. Motor grossly within normal limits. Normal speech. PSYCHIATRIC: Agitated, restless, intermittently screaming. Data Data Last Documented VS Vital Signs Date Time Temp Pulse Resp B/P (MAP) Pulse Ox O2 Delivery O2 Flow Rate FiO2 12/24/17 19:17 97.8 120 16 100/50 (67) 100 Orders Orders Complete Blood Count With Diff (12/24/17 19:40) Comprehensive Metabolic Panel (12/24/17 19:40) Thyroid Stimulating Hormone (12/24/17 19:40) Ed Urine Pregnancytest Poc (12/24/17 19:40) Psych Screen (12/24/17 19:40) Drug Screen, Random Urine (12/24/17 19:40) Alcohol (Ethanol) (12/24/17 21:07) Trazodone (Desyrel) (12/24/17 21:45) Quetiapine (Seroquel) (12/24/17 21:45) Lorazepam Inj (Ativan Inj) (12/24/17 21:45) Diphenhydramine Inj (Benadryl Inj) (12/24/17 21:45) Labs Laboratory Tests Test 12/24/17 19:45 12/24/17 19:50 Urine Opiates Screen NEG Urine Barbiturates Screen NEG Urine Amphetamines Screen NEG Urine Benzodiazepines Screen NEG Urine Cocaine Screen NEG Urine Cannabinoids Screen NEG White Blood Count 7.1 TH/MM3 Red Blood Count 4.17 MIL/MM3 Hemoglobin 11.9 GM/DL Hematocrit 35.0 % Mean Corpuscular Volume 84.1 FL Mean Corpuscular Hemoglobin 28.6 PG Mean Corpuscular Hemoglobin Concent 34.0 % Red Cell Distribution Width 13.6 % Platelet Count 358 TH/MM3 Mean Platelet Volume 8.2 FL Neutrophils (%) (Auto) 59.9 % Lymphocytes (%) (Auto) 31.7 % Monocytes (%) (Auto) 6.2 % Eosinophils (%) (Auto) 1.3 % Basophils (%) (Auto) 0.9 % Neutrophils # (Auto) 4.2 TH/MM3 Lymphocytes # (Auto) 2.2 TH/MM3 Monocytes # (Auto) 0.4 TH/MM3 Eosinophils # (Auto) 0.1 TH/MM3 Basophils # (Auto) 0.1 TH/MM3 CBC Comment DIFF FINAL Differential Comment Blood Urea Nitrogen 11 MG/DL Creatinine 0.76 MG/DL Random Glucose 91 MG/DL Total Protein 7.3 GM/DL Albumin 2.8 GM/DL Calcium Level 8.8 MG/DL Alkaline Phosphatase 97 U/L Aspartate Amino Transf (AST/SGOT) 13 U/L Alanine Aminotransferase (ALT/SGPT) 14 U/L Total Bilirubin LESS THAN 0.1 MG/DL Sodium Level 143 MEQ/L Potassium Level 3.5 MEQ/L Chloride Level 107 MEQ/L Carbon Dioxide Level 23.9 MEQ/L Anion Gap 12 MEQ/L Estimat Glomerular Filtration Rate 91 ML/MIN Thyroid Stimulating Hormone 3rd Gen 1.870 uIU/ML Ethyl Alcohol Level 230 MG/DL MDM Medical Decision Making Medical Screen Exam Complete: Yes Emergency Medical Condition: Yes Medical Record Reviewed: Yes Differential Diagnosis Substance-induced mood disorder, acute psychosis, adjustment reaction, major depressive disorder, bipolar disorder Narrative Course Mental health screening discussed with the patient. Psychiatric screen ordered. The patient's lab work is notable for an alcohol level of 230. The patient is medically cleared. Diagnosis Primary Impression: Medical clearance for psychiatric admission Additional Impression: Alcohol abuse Paco Corcoran Dec 24, 2017 21:47
[2017-12-24 22:08] VITALS: BP 110/58; PULSE 104; RESP 20; TEMP 97.9; O2SAT 97
[2017-12-24] MEDS ORDERED: SERO400T PO (22:40)
[2017-12-24] MEDS ORDERED: TRAZ1TAB14 PO (22:40)
[2017-12-24 23:39] VITALS: PULSE 101; RESP 15; O2SAT 92
[2017-12-25 03:55] VITALS: BP 106/65; PULSE 102; RESP 15; O2SAT 97
[2017-12-25 15:00] VITALS: BP 98/60; PULSE 81; RESP 20
[2017-12-25 21:54] VITALS: BP 107/55; PULSE 70; RESP 18; TEMP 98.6; O2SAT 99
[2017-12-26 06:28] VITALS: BP 106/55; PULSE 64; RESP 18; TEMP 98.2; O2SAT 100
--- NOTE | 2017-12-26 09:29 | PD ---
Physical Exam Date Seen by Provider: Dec 26, 2017 Time Seen by Provider: 09:28 Data Data Last Documented VS Vital Signs Date Time Temp Pulse Resp B/P (MAP) Pulse Ox O2 Delivery O2 Flow Rate FiO2 12/26/17 06:28 98.2 64 18 106/55 (72) 100 Room Air Orders Orders Complete Blood Count With Diff (12/24/17 19:40) Comprehensive Metabolic Panel (12/24/17 19:40) Thyroid Stimulating Hormone (12/24/17 19:40) Ed Urine Pregnancytest Poc (12/24/17 19:40) Psych Screen (12/24/17 19:40) Drug Screen, Random Urine (12/24/17 19:40) Alcohol (Ethanol) (12/24/17 21:07) Trazodone (Desyrel) (12/24/17 21:45) Quetiapine (Seroquel) (12/24/17 21:45) Lorazepam Inj (Ativan Inj) (12/24/17 21:45) Diphenhydramine Inj (Benadryl Inj) (12/24/17 21:45) Restraints Violent (12/24/17 22:36) Diet Regular Basic (12/25/17 Breakfast) Diet Regular Basic (12/25/17 Lunch) Diet Regular Basic (12/25/17 Dinner) Diet Regular Basic (12/26/17 Breakfast) Ed Discharge Order (12/26/17 09:27) Labs Laboratory Tests Test 12/24/17 19:45 12/24/17 19:50 Urine Opiates Screen NEG Urine Barbiturates Screen NEG Urine Amphetamines Screen NEG Urine Benzodiazepines Screen NEG Urine Cocaine Screen NEG Urine Cannabinoids Screen NEG White Blood Count 7.1 TH/MM3 Red Blood Count 4.17 MIL/MM3 Hemoglobin 11.9 GM/DL Hematocrit 35.0 % Mean Corpuscular Volume 84.1 FL Mean Corpuscular Hemoglobin 28.6 PG Mean Corpuscular Hemoglobin Concent 34.0 % Red Cell Distribution Width 13.6 % Platelet Count 358 TH/MM3 Mean Platelet Volume 8.2 FL Neutrophils (%) (Auto) 59.9 % Lymphocytes (%) (Auto) 31.7 % Monocytes (%) (Auto) 6.2 % Eosinophils (%) (Auto) 1.3 % Basophils (%) (Auto) 0.9 % Neutrophils # (Auto) 4.2 TH/MM3 Lymphocytes # (Auto) 2.2 TH/MM3 Monocytes # (Auto) 0.4 TH/MM3 Eosinophils # (Auto) 0.1 TH/MM3 Basophils # (Auto) 0.1 TH/MM3 CBC Comment DIFF FINAL Differential Comment Blood Urea Nitrogen 11 MG/DL Creatinine 0.76 MG/DL Random Glucose 91 MG/DL Total Protein 7.3 GM/DL Albumin 2.8 GM/DL Calcium Level 8.8 MG/DL Alkaline Phosphatase 97 U/L Aspartate Amino Transf (AST/SGOT) 13 U/L Alanine Aminotransferase (ALT/SGPT) 14 U/L Total Bilirubin LESS THAN 0.1 MG/DL Sodium Level 143 MEQ/L Potassium Level 3.5 MEQ/L Chloride Level 107 MEQ/L Carbon Dioxide Level 23.9 MEQ/L Anion Gap 12 MEQ/L Estimat Glomerular Filtration Rate 91 ML/MIN Thyroid Stimulating Hormone 3rd Gen 1.870 uIU/ML Ethyl Alcohol Level 230 MG/DL [facility] Medical Record Reviewed: Yes Supervised Visit with ADALBERTO: No Narrative Course 27-year-old female with history of bipolar disorder initially presented under a Hunter act for evaluation of suicidal ideation and self injury. Patient denies suicidal homicidal ideations. Labs reviewed. Vital signs reviewed. Patient is alert and oriented. She was seen by psychiatrist and Hunter act was lifted. She is medically stable for outpatient follow-up. Diagnosis Primary Impression: Medical clearance for psychiatric admission Additional Impression: Alcohol abuse Referrals: Psychiatrist Additional Instruction: Follow-up per psychiatrist's recommendations. Return for worsening symptoms as needed. Disposition: 01 DISCHARGE HOME Condition: Stable Raeann Justin Dec 26, 2017 09:29
--- NOTE | 2017-12-26 14:10 | PD.PSY.CON ---
Provisional Diagnosis Admission Date [place] I. Alcohol-induced mood disorder, alcohol use disorder, bipolar disorder [place] II. Borderline personality disorder [place] III. No significant medical history History of Present Illness Service Psychiatry Consult Requested By ER Reason for Consult SI Primary Care Physician No Primary Care Physician HPI The patient is a 27-year-old woman, domiciled with her mother in [facility], single, unemployed, supported by [facility], with extensive psychiatric history of bipolar disorder, borderline personality disorder, multiple psychiatric hospitalizations, multiple suicidal attempts, extensive history of self cutting behavior without SI, alcohol use disorder, poor impulse control, establish outpatient psychiatric care in [facility], she is on Depakote 500 mg twice daily, Prozac 40, Seroquel 200 mg in the morning 400 mg at night, clonazepam 1 mg twice daily, no significant medical history, who presents under Hunter act initiated by the [employer]. According to her paperwork the patient has a history of cutting. She was found in the bathroom with a knife and had sent text messages to her stepfather including photos of old injuries..The patient reports that she was just texting with her stepfather about various things and happened to send those pictures. She denies any suicidal intent or self-harm intent. She denies hurting herself today. She reports that the folds were old. She is currently very agitated and was uncooperative upon presenting to the psychiatric portion of the emergency room. She hit her head against a wall, punched a window, broke a fire alarm. This required the use of restraints. She will be given her nighttime doses of trazodone 150 mg as well as Seroquel 400 mg. In addition 1 mg of Ativan and 50 mg of Benadryl have been ordered. The patient has no medical complaints at this time. On psychiatric evaluation in the morning the patient is calm, cooperative. She reports that when she arrived in the ER she was drunk. Her BAL was 230. Patient states that in the context of alcohol intoxication she sent old pictures to her stepfather of her cutting herself. The patient states that she did not have any suicidal intentions. She reports that she has been compliant with her medications, without significant side effects. At this moment she denies anxiety, she denies depression, she denies tamela and psychosis. She denies suicidal and homicidal ideation, she denies visual and auditory hallucinations. The patient is fully oriented 3. No agitation, no aggressive behavior observed. The patient reports basically daily use of alcohol and cannabis. Review of Systems Constitutional: DENIES: Diaphoretic episodes, Fatigue, Fever, Weight gain, Weight loss, Chills, Dizziness, Change in appetite, Night Sweats Endocrine: DENIES: Abnorml menstrual pattern, Heat/cold intolerance, Polydipsia , Polyuria, Polyphagia Eyes: DENIES: Blurred vision, Diplopia, Eye inflammation, Eye pain, Vision loss , Photosensitivity, Double Vision Ears, nose, mouth, throat: DENIES: Tinnitus, Hearing loss, Vertigo, Nasal discharge, Oral lesions, Throat pain, Hoarseness, Ear Pain, Running Nose, Epistaxis, Sinus Pain, Toothache, Odynophagia Respiratory: DENIES: Apneas, Cough, Snoring, Wheezing, Hemoptysis, Sputum production, Shortness of breath Cardiovascular: DENIES: Chest pain, Palpitations, Syncope, Dyspnea on Exertion , PND, Lower Extremity Edema, Orthopnea, Claudication Gastrointestinal: DENIES: Abdominal pain, Black stools, Bloody stools, Constipation, Diarrhea, Nausea, Vomiting, Difficulty Swallowing, Anorexia Genitourinary: DENIES: Abnormal vaginal bleeding, Dysmenorrhea, Dyspareunia, Sexual dysfunction, Urinary frequency, Urinary incontinence, Urgency, Hematuria , Dysuria, Nocturia, Vaginal discharge Musculoskeletal: DENIES: Joint pain, Muscle aches, Stiffness, Joint Swelling, Back pain, Neck pain Integumentary: DENIES: Abnormal pigmentation, Pruritus, Rash, Nail changes, Breast masses, Breast skin changes, Nipple discharge Hematologic/lymphatic: DENIES: Bruising, Lymphadenopathy Immunologic/allergic: DENIES: Eczema, Urticaria Neurologic: DENIES: Abnormal gait, Headache, Localized weakness, Paresthesias, Seizures, Speech Problems, Tremor, Poor Balance Psychiatric: DENIES: Anxiety, Confusion, Mood changes, Depression, Hallucinations, Agitation, Suicidal Ideation, Homicidal Ideation, Delusions Past Family Social History Coded Allergies: No Known Allergies (Verified Allergy, Unknown, 11/02/17) Reported Medications Trazodone (Trazodone) 150 Mg Tablet, 150 MG PO HS for Control Depression, #30 TAB 0 Refills 12/24/17 Quetiapine (Seroquel) 400 Mg Tab, 400 MG PO HS, #30 TAB 0 Refills 12/24/17 Clonazepam (Klonopin) 1 Mg Tab, 1 MG PO BID, #60 TAB 0 Refills 11/02/17 Fluoxetine (Prozac) 20 Mg Cap, 40 MG PO DAILY, #30 CAP 0 Refills 10/04/16 Buspirone (Buspirone) 10 Mg Tab, 15 MG PO BID for Anxiety, TAB 0 Refills 10/04/16 Discontinued Reported Medications Quetiapine (Seroquel) 50 Mg Tab, 50 MG PO BID, #60 TAB 0 Refills 11/02/17 Trazodone (Trazodone) 150 Mg Tablet, 100 MG PO HS for Control Depression, #30 TAB 0 Refills 08/19/17 Discontinued Scripts Cephalexin (Keflex) 500 Mg Cap, 500 MG PO Q8H for Infection for 7 Days, #21 CAP 0 Refills Prov:Hector Montaño MD 11/03/17 Family Psych History No family psychiatric history Social History Patient was born and raised in [place], [place] [facility] [place], she is single, no kids, unemployed, supported by [facility], her highest level of education is 10th Physical Exam Vital Signs Vital Signs Date Time Temp Pulse Resp B/P (MAP) Pulse Ox O2 Delivery O2 Flow Rate FiO2 12/26/17 11:36 12/26/17 06:28 98.2 64 18 100 Room Air Mental Status Examination Appearance: Appropriate, Other (Multiple visible scars in both arms) Consciousness: Alert Orientation: x4 Motor Activity: Normal gait Speech: Unremarkable Language: Adequate Fund of Knowledge: Adequate Attention and Concentration: Adequate Memory: Unremarkable Mood: Appropriate Affect: Appropriate Thought Process & Associations: Intact Thought Content: Appropriate Hallucination Type: None Delusion Type: None Suicidal Ideation: No Suicidal Plan: No Suicidal Intention: No Homicidal Ideation: No Homicidal Plan: No Homicidal Intention: No Insight: Fair Judgment: Impulsive Assessment & Plan Problem List: (1) Borderline personality disorder in adult ICD Codes: F60.3 - Borderline personality disorder Status: Acute Assessment & Plan: Psychiatric evaluation today the patient does not present any significant, concerning for acute objective or subjective symptomatology of depression, anxiety, tamela or psychosis. The patient denies suicidal ideation, she denies visual and auditory hallucinations. The patient is logical, coherent and relevant. No loosening of associations, no delusions, no paranoia , no reality testing impairment, agitation or aggressive behavior observed during this evaluation. Recent suicidal gesture and aggressive behavior displayed in the ER, was most probably the result of alcohol intoxication and maladaptive coping skills secondary to her underlying borderline personality disorder. She does not meet criteria for involuntary psychiatric admission at this moment. With supportive psychotherapy provided. Hunter act will be lifted Assessment & Plan Estimated LOS: days Dave Jackson MD Dec 26, 2017 14:10
== END 2017-12-26 11:56 | disposition home or self-care (01) ==
LOC: NEDAMB 18:39 → NEPJ 12-26 11:56
DX: F10.10 Alcohol abuse, uncomplicated (principal); F31.9 Bipolar disorder, unspecified; F41.9 Anxiety disorder, unspecified; R01.1 Cardiac murmur, unspecified; F17.200 Nicotine dependence, unspecified, uncomplicated; Z79.899 Other long term (current) drug therapy
CPT/HCPCS: 80053; 80307; 84443; 84703; 85025; 96372; 99285; J1200; J2060

== ENCOUNTER 2018-01-01 20:40 | Emergency (ER) | payer OTHER ==
[~2018-01-01] VITALS: Ht 154.9 cm; Wt 70.0 kg
[~2018-01-01 20:40] MED LIST changes: -CEPH-460 PO; +SERO400T PO; -SERO50TA PO
[2018-01-01 20:48] VITALS: BP 125/85; PULSE 120; RESP 22; TEMP 98.4; O2SAT 98
[2018-01-01 20:52] VITALS: BP 125/85; PULSE 120; RESP 20; O2SAT 98
--- NOTE | 2018-01-01 20:54 | PD ---
HPI Chief Complaint: Psychiatric Symptoms Time Seen by Provider: 20:53 Travel History International Travel<30 days: No Contact w/Intl Traveler<30days: No Traveled to known affect area: No History of Present Illness HPI 27-year-old female with long-standing history of psychiatric history and self- harm, presents to emergency department for evaluation under Hunter act. Patient has cut her left anterior thigh in 3 areas with a razor blade. Please recontact. She does drink a large amount of alcohol this evening. States that she has been under a lot of stress and "cannot handle it." Patient is very anxious. She is intermittently yelling obscenities and needing to be calm down. PFSH Past Medical History ADHD: No Arthritis: No Asthma: No Autoimmune Disease: No Blood Disorders: No Bipolar Disorder: Yes Anxiety: Yes Depression: Yes Heart Rhythm Problems: Yes Cancer: No Cardiovascular Problems: Yes (Heart murmur) High Cholesterol: No Chemotherapy: No Chest Pain: No Congestive Heart Failure: No COPD: No Cerebrovascular Accident: No Diabetes: No Diminished Hearing: No Endocrine: No Gastrointestinal Disorders: No GERD: No Glaucoma: No Genitourinary: No Headaches: No Hepatitis: No Hiatal Hernia: No Heparin Induced Thrombocytopen: No Hypertension: No Immune Disorder: No Implanted Vascular Access Dvce: No Kidney Stones: No Musculoskeletal: No Neurologic: Yes Psychiatric: Yes (Schizoaffective disorder, borderline personality disorder, anxiety disorder) Reproductive: No Respiratory: No Immunizations Current: Yes Migraines: No Myocardial Infarction: No Radiation Therapy: No Renal Failure: No Seizures: No Sickle Cell Disease: No Sleep Apnea: No Thyroid Disease: No Ulcer: No : 0 Para: 0 Past Surgical History AICD: No Appendectomy: No Arteriovenous Shunt: No Cholecystectomy: No Insulin Pump: No Joint Replacement: No Pacemaker: No Other Surgery: No Social History Alcohol Use: Yes (DAILY) Tobacco Use: Yes (1PPD) Substance Use: Yes Allergies-Medications (Allergen,Severity, Reaction): Coded Allergies: No Known Allergies (Verified Allergy, Unknown, 01/01/18) Reported Meds & Prescriptions Reported Meds & Active Scripts Active Reported Trazodone (Trazodone HCl) 150 Mg Tablet 150 Mg PO HS Seroquel (Quetiapine Fumarate) 400 Mg Tab 400 Mg PO HS Klonopin (Clonazepam) 1 Mg Tab 1 Mg PO BID Prozac (Fluoxetine HCl) 20 Mg Cap 40 Mg PO DAILY Buspirone (Buspirone HCl) 10 Mg Tab 15 Mg PO BID Review of Systems ROS Limitations: Intoxication Except as stated in HPI: all other systems reviewed are Neg Physical Exam Exam Limitations: Intoxication Narrative GENERAL: Well-nourished female patient, sitting up in the bed, yelling SKIN: Focused skin assessment warm/dry. Multiple linear scars on the upper and lower extremities. On the left anterior thigh there is a 7 cm laceration proximal to the knee. There is a few superficial lacerations, the longest being 15 cm. There is another one proximal to that and is 8 cm. HEAD: Atraumatic. Normocephalic. EYES: Pupils equal and round. No scleral icterus. No injection or drainage. ENT: No nasal bleeding or discharge. Mucous membranes pink and moist. NECK: Trachea midline. No JVD. CARDIOVASCULAR: Regular rate and rhythm. No murmur appreciated. RESPIRATORY: No accessory muscle use. Clear to auscultation. Breath sounds equal bilaterally. GASTROINTESTINAL: Abdomen soft, non-tender, nondistended. Hepatic and splenic margins not palpable. MUSCULOSKELETAL: No obvious deformities. No clubbing. No cyanosis. No edema. NEUROLOGICAL: Awake and alert. No obvious cranial nerve deficits. Motor grossly within normal limits. Normal speech. Data Data Last Documented VS Vital Signs Date Time Temp Pulse Resp B/P (MAP) Pulse Ox O2 Delivery O2 Flow Rate FiO2 01/01/18 20:52 120 20 125/85 (98) 98 Room Air 01/01/18 20:48 98.4 Orders Orders Complete Blood Count With Diff (01/01/18 20:53) Thyroid Stimulating Hormone (01/01/18 20:53) Basic Metabolic Panel (Bmp) (01/01/18 20:53) Urinalysis - C+S If Indicated (01/01/18 20:53) Ed Urine Pregnancytest Poc (01/01/18 20:53) Psych Screen (01/01/18 20:53) Drug Screen, Random Urine (01/01/18 20:53) Alcohol (Ethanol) (01/01/18 20:53) Lorazepam Inj (Ativan Inj) (01/01/18 21:00) Diphenhydramine Inj (Benadryl Inj) (01/01/18 21:30) Haloperidol Inj (Haldol Inj) (01/01/18 21:30) Labs Laboratory Tests Test 01/01/18 20:50 01/01/18 21:00 Urine Color LIGHT-YELLOW Urine Turbidity CLEAR Urine pH 6.5 Urine Specific [place] 1.004 Urine Protein NEG mg/dL Urine Glucose (UA) NEG mg/dL Urine Ketones NEG mg/dL Urine Occult Blood NEG Urine Nitrite NEG Urine Bilirubin NEG Urine Urobilinogen LESS THAN 2.0 MG/DL Urine Leukocyte Esterase NEG Urine RBC 1 /hpf Urine WBC LESS THAN 1 /hpf Urine Squamous Epithelial Cells 1 /hpf Microscopic Urinalysis Comment CULT NOT INDICATED Urine Opiates Screen NEG Urine Barbiturates Screen NEG Urine Amphetamines Screen NEG Urine Benzodiazepines Screen NEG Urine Cocaine Screen NEG Urine Cannabinoids Screen NEG White Blood Count 8.7 TH/MM3 Red Blood Count 4.71 MIL/MM3 Hemoglobin 13.0 GM/DL Hematocrit 39.4 % Mean Corpuscular Volume 83.6 FL Mean Corpuscular Hemoglobin 27.6 PG Mean Corpuscular Hemoglobin Concent 32.9 % Red Cell Distribution Width 14.3 % Platelet Count 337 TH/MM3 Mean Platelet Volume 8.7 FL Neutrophils (%) (Auto) 53.6 % Lymphocytes (%) (Auto) 38.8 % Monocytes (%) (Auto) 5.7 % Eosinophils (%) (Auto) 1.3 % Basophils (%) (Auto) 0.6 % Neutrophils # (Auto) 4.6 TH/MM3 Lymphocytes # (Auto) 3.4 TH/MM3 Monocytes # (Auto) 0.5 TH/MM3 Eosinophils # (Auto) 0.1 TH/MM3 Basophils # (Auto) 0.1 TH/MM3 CBC Comment DIFF FINAL Differential Comment Blood Urea Nitrogen 12 MG/DL Creatinine 0.88 MG/DL Random Glucose 106 MG/DL Calcium Level 8.6 MG/DL Sodium Level 144 MEQ/L Potassium Level 3.4 MEQ/L Chloride Level 106 MEQ/L Carbon Dioxide Level 26.2 MEQ/L Anion Gap 12 MEQ/L Estimat Glomerular Filtration Rate 77 ML/MIN Thyroid Stimulating Hormone 3rd Gen 3.830 uIU/ML Ethyl Alcohol Level 320 MG/DL MDM Medical Decision Making Medical Screen Exam Complete: Yes Emergency Medical Condition: Yes Medical Record Reviewed: Yes Differential Diagnosis Mood disorder versus personality disorder versus stress reaction disorder laceration superficial versus deep versus abrasions versus avulsion Narrative Course 27-year-old female well-known to this facility presents emergency department under Hunter act after cutting her left thigh. She is very anxious and is given 2 mg IV Ativan. We'll patient's labs are pending, patient is from her bed and I am told she has grabbed syringes and inflicted more lacerations to her bilateral anterior thighs. These are all superficial in nature. The 3 lacerations that are not superficial are approximated. Patient is medicated. She has been placed in bilateral violent restraints. [id number] exam completed at 2129 Patient demonstrates the need for violent restraints, demonstrating a risk of harming [-herself]. Restraints are noted in place. Distal extremities remain neurovascularly intact. 2244 patient is resting quietly. She remains on a monitor. Laboratory Tests Test 01/01/18 20:50 01/01/18 21:00 Urine Color LIGHT-YELLOW Urine Turbidity CLEAR Urine pH 6.5 Urine Specific [place] 1.004 Urine Protein NEG mg/dL Urine Glucose (UA) NEG mg/dL Urine Ketones NEG mg/dL Urine Occult Blood NEG Urine Nitrite NEG Urine Bilirubin NEG Urine Urobilinogen LESS THAN 2.0 MG/DL Urine Leukocyte Esterase NEG Urine RBC 1 /hpf Urine WBC LESS THAN 1 /hpf Urine Squamous Epithelial Cells 1 /hpf Microscopic Urinalysis Comment CULT NOT INDICATED Urine Opiates Screen NEG Urine Barbiturates Screen NEG Urine Amphetamines Screen NEG Urine Benzodiazepines Screen NEG Urine Cocaine Screen NEG Urine Cannabinoids Screen NEG White Blood Count 8.7 TH/MM3 Red Blood Count 4.71 MIL/MM3 Hemoglobin 13.0 GM/DL Hematocrit 39.4 % Mean Corpuscular Volume 83.6 FL Mean Corpuscular Hemoglobin 27.6 PG Mean Corpuscular Hemoglobin Concent 32.9 % Red Cell Distribution Width 14.3 % Platelet Count 337 TH/MM3 Mean Platelet Volume 8.7 FL Neutrophils (%) (Auto) 53.6 % Lymphocytes (%) (Auto) 38.8 % Monocytes (%) (Auto) 5.7 % Eosinophils (%) (Auto) 1.3 % Basophils (%) (Auto) 0.6 % Neutrophils # (Auto) 4.6 TH/MM3 Lymphocytes # (Auto) 3.4 TH/MM3 Monocytes # (Auto) 0.5 TH/MM3 Eosinophils # (Auto) 0.1 TH/MM3 Basophils # (Auto) 0.1 TH/MM3 CBC Comment DIFF FINAL Differential Comment Blood Urea Nitrogen 12 MG/DL Creatinine 0.88 MG/DL Random Glucose 106 MG/DL Calcium Level 8.6 MG/DL Sodium Level 144 MEQ/L Potassium Level 3.4 MEQ/L Chloride Level 106 MEQ/L Carbon Dioxide Level 26.2 MEQ/L Anion Gap 12 MEQ/L Estimat Glomerular Filtration Rate 77 ML/MIN Thyroid Stimulating Hormone 3rd Gen 3.830 uIU/ML Ethyl Alcohol Level 320 MG/DL Patient is medically cleared to undergo psychiatric screening for further evaluation and disposition. Procedures Procedure Narrative LACERATION LOCATION: Left anterior thigh LENGTH: 15 cm NUMBER OF STITCHES/TYLER: 12 REPAIR: The area of the laceration was prepped with Betadine and sterilely draped. The laceration was saturated with topical lidocaine. The wound was copiously irrigated and explored without evidence of foreign body, tendon injury or neurovascular injury. The wound was closed using tables. This was a single layer repair. A sterile dressing was applied. The patient was advised to keep the dressing clean and dry. Patient tolerated the procedure well. LACERATION LOCATION: Left anterior thigh LENGTH: 7 cm NUMBER OF STITCHES/TYLER: 8 REPAIR: The area of the laceration was prepped with Betadine and sterilely draped. The laceration was saturated with topical lidocaine. The wound was copiously irrigated and explored without evidence of foreign body, tendon injury or neurovascular injury. The wound was closed using tables. This was a single layer repair. A sterile dressing was applied. The patient was advised to keep the dressing clean and dry. Patient tolerated the procedure well. LACERATION LOCATION: Left anterior thigh LENGTH: 8 cm NUMBER OF STITCHES/TYLER: 9 REPAIR: The area of the laceration was prepped with Betadine and sterilely draped. The laceration was saturated with topical lidocaine. The wound was copiously irrigated and explored without evidence of foreign body, tendon injury or neurovascular injury. The wound was closed using tables. This was a single layer repair. A sterile dressing was applied. The patient was advised to keep the dressing clean and dry. Patient tolerated the procedure well. Diagnosis Primary Impression: Adjustment disorder with mixed disturbance of emotions and conduct Additional Impressions: Alcohol intoxication Qualified Codes: F10.929 - Alcohol use, unspecified with intoxication, unspecified Self-mutilation Condition: Giuliana DiazP Jan 01, 2018 20:54
[2018-01-01] MEDS ORDERED: LORazepam 2 MG/ML VIAL IV PUSH ONE (21:00)
[2018-01-01] MEDS ORDERED: HALOPERIDOL LACTATE 5 MG/ML AMP IV PUSH ONE (21:30)
[2018-01-01] MEDS ORDERED: diphenhydrAMINE HCL 50 MG/ML VIAL IV PUSH ONE (21:30)
[2018-01-01 21:41] LABS: AUTOMATED NEUTROPHIL # 4.6 TH/MM3 (1.8-7.7); BASOPHIL # 0.1 TH/MM3 (0-0.2); BASOPHIL % 0.6 % (0.0-2.0); EOSINOPHIL # 0.1 TH/MM3 (0-0.4); EOSINOPHIL % 1.3 % (0.0-4.0); HEMATOCRIT 39.4 % (35.0-46.0); LYMPH % 38.8 % (9.0-44.0); LYMPHOCYTE # 3.4 TH/MM3 (1.0-4.8); MEAN CELL VOLUME 83.6 FL (80.0-100.0); MEAN CORPUSCULAR HEMOGLOBIN 27.6 PG (27.0-34.0); MEAN CORPUSCULAR HGB CONC 32.9 % (32.0-36.0); MEAN PLATELET VOLUME 8.7 FL (7.0-11.0); MONO % 5.7 % (0.0-8.0); MONOCYTE # 0.5 TH/MM3 (0-0.9); NEUT % 53.6 % (16.0-70.0); PLATELET COUNT 337 TH/MM3 (150-450); RED BLOOD COUNT 4.71 MIL/MM3 (4.00-5.30); RED CELL DISTRIBUTION WIDTH 14.3 % (11.6-17.2); WHITE BLOOD COUNT 8.7 TH/MM3 (4.0-11.0)
[2018-01-01 21:46] LABS: BILIRUBIN, URINE NEG (NEG); BLOOD, URINE NEG (NEG); GLUCOSE,URINE NEG (NEG); KETONE, URINE NEG (NEG); NITRITE,URINE NEG (NEG); PH, URINE 6.5 (5.0-8.5); SQUAMOUS EPITHELIAL CELL URINE 1 /hpf (0-5); URINE COLOR LIGHT-YELLOW (YELLW/STRAW); URINE LEUKOCYTE ESTERASE NEG (NEG)
[2018-01-01 22:04] LABS: BICARBONATE 26.2 MEQ/L (21.0-32.0); CALCIUM 8.6 MG/DL (8.5-10.1); CREATININE 0.88 MG/DL (0.50-1.00)
[2018-01-02 03:51] VITALS: BP 121/84; PULSE 111; RESP 18; TEMP 98.6; O2SAT 97
[2018-01-02 06:23] VITALS: BP 119/59; PULSE 114; RESP 18; TEMP 98.7; O2SAT 100
[2018-01-02 09:52] VITALS: BP 117/78; TEMP 98
[2018-01-02 10:32] VITALS: BP 119/57; PULSE 112; RESP 20; O2SAT 100
[2018-01-02 11:20] VITALS: BP 118/78; TEMP 98
== END 2018-01-02 11:37 ==
LOC: NEPE 20:40 → NEPJ 01-02 11:37
DX: S71.112A Laceration without foreign body, left thigh, initial encounter (principal); F43.25 Adjustment disorder with mixed disturbance of emotions and conduct; F31.9 Bipolar disorder, unspecified; F60.3 Borderline personality disorder; F41.9 Anxiety disorder, unspecified; F17.200 Nicotine dependence, unspecified, uncomplicated; F10.129 Alcohol abuse with intoxication, unspecified; X78.8XXA Intentional self-harm by other sharp object, initial encounter; Y90.8 Blood alcohol level of 240 mg/100 ml or more; Z79.899 Other long term (current) drug therapy
CPT/HCPCS: 12006; 80048; 80307; 81001; 84443; 84703; 85025; 96374; 96375; 99285; J1200; J1630; J2060

== ENCOUNTER 2018-03-22 19:43 | Emergency (ER) | payer OTHER ==
--- NOTE | 2018-03-22 20:28 | PD ---
HPI Chief Complaint: Suicide Ideation/Attempt Time Seen by Provider: 20:11 Travel History International Travel<30 days: No Contact w/Intl Traveler<30days: No Traveled to known affect area: No History of Present Illness HPI Patient is a 27-year-old female who presents to the emergency room under a Hunter act for psychiatric evaluation. As per law enforcement, patient was brought to the emergency room and she was using an Exacto knife to cut her wrist /forearm. Patient was found with her boyfriend on top of her trying to get her to stop cutting her arm. Patient denied si/hi - reports that she always cuts her forearm. Patient admits to using cocaine - reports that she has been drinking heavily and may have had up to 20 shots of vodka in the last 15 hours. Tetanus is up to date. PFSH Past Medical History ADHD: No Arthritis: No Asthma: No Autoimmune Disease: No Blood Disorders: No Bipolar Disorder: Yes Anxiety: Yes Depression: Yes Heart Rhythm Problems: Yes Cancer: No Cardiovascular Problems: Yes (Heart murmur) High Cholesterol: No Chemotherapy: No Chest Pain: No Congestive Heart Failure: No COPD: No Cerebrovascular Accident: No Diabetes: No Diminished Hearing: No Endocrine: No Gastrointestinal Disorders: No GERD: No Glaucoma: No Genitourinary: No Headaches: No Hepatitis: No Hiatal Hernia: No Heparin Induced Thrombocytopen: No Hypertension: No Immune Disorder: No Implanted Vascular Access Dvce: No Kidney Stones: No Musculoskeletal: No Neurologic: Yes Psychiatric: Yes (Schizoaffective disorder, borderline personality disorder, anxiety disorder) Reproductive: No Respiratory: No Immunizations Current: Yes Migraines: No Myocardial Infarction: No Radiation Therapy: No Renal Failure: No Seizures: No Sickle Cell Disease: No Sleep Apnea: No Thyroid Disease: No Ulcer: No ?: Not LMP: 03/16/18 : 0 Para: 0 Past Surgical History AICD: No Appendectomy: No Arteriovenous Shunt: No Cholecystectomy: No Insulin Pump: No Joint Replacement: No Pacemaker: No Other Surgery: No Social History Alcohol Use: Yes (DAILY) Tobacco Use: Yes (1PPD) Substance Use: Yes (CRACK-COCAINE ) Allergies-Medications (Allergen,Severity, Reaction): Coded Allergies: No Known Allergies (Verified Allergy, Unknown, 03/22/18) Reported Meds & Prescriptions Reported Meds & Active Scripts Active Reported Trazodone (Trazodone HCl) 150 Mg Tablet 150 Mg PO HS Seroquel (Quetiapine Fumarate) 400 Mg Tab 400 Mg PO HS Klonopin (Clonazepam) 1 Mg Tab 1 Mg PO BID Prozac (Fluoxetine HCl) 20 Mg Cap 40 Mg PO DAILY Buspirone (Buspirone HCl) 10 Mg Tab 15 Mg PO BID Review of Systems General / Constitutional: No: Fever Eyes: No: Visual changes HENT: No: Headaches Cardiovascular: No: Chest Pain or Discomfort Respiratory: No: Shortness of Breath Gastrointestinal: No: Abdominal Pain Genitourinary: No: Dysuria Musculoskeletal: No: Pain Skin: No Rash Neurologic: No: Weakness Psychiatric: Positive: Substance Abuse, No: Depression, Suicidal Ideations, Homicidal Ideation Endocrine: No: Polydipsia Hematologic/Lymphatic: No: Easy Bruising Physical Exam Narrative GENERAL: Moderate distress SKIN: Focused skin assessment warm/dry. HEAD: Atraumatic. Normocephalic. EYES: Pupils equal and round. No scleral icterus. No injection or drainage. ENT: No nasal bleeding or discharge. Mucous membranes pink and moist. NECK: Trachea midline. No JVD. CARDIOVASCULAR: Regular rate and rhythm. No murmur appreciated. RESPIRATORY: No accessory muscle use. Clear to auscultation. Breath sounds equal bilaterally. GASTROINTESTINAL: Abdomen soft, non-tender, nondistended. Hepatic and splenic margins not palpable. MUSCULOSKELETAL: No obvious deformities. No clubbing. No cyanosis. No edema. Patient with multiple superficial abrasions to left forearm, she does have 1 deep linear laceration which is about 2cm in length which will require sutures NEUROLOGICAL: Awake and alert. No obvious cranial nerve deficits. Motor grossly within normal limits. Normal speech. PSYCHIATRIC: Appropriate mood and affect; insight and judgment normal. Data Data Orders Orders Complete Blood Count With Diff (03/22/18 20:27) Comprehensive Metabolic Panel (03/22/18 20:27) Thyroid Stimulating Hormone (03/22/18 20:27) Beta Hcg (Quant/Titer) (03/22/18 20:27) Psych Screen (03/22/18 20:27) Lorazepam Inj (Ativan Inj) (03/22/18 20:30) Drug Screen, Random Urine (03/22/18 20:27) Alcohol (Ethanol) (03/22/18 20:27) Salicylates (Aspirin) (03/22/18 20:27) Tylenol (Acetaminophen) (03/22/18 20:27) MDM Medical Decision Making Medical Screen Exam Complete: Yes Emergency Medical Condition: Yes Medical Record Reviewed: Yes Differential Diagnosis Alcohol abuse, polysubstance abuse, self-mutilation, laceration Narrative Course Patient presents the emergency room under a Hunter act. Patient was given 2 mg of IM Ativan as she is severely agitated and required sedation. Once she is sober, will have her seen by psychiatric screener's. Salina Briscoe DO Mar 22, 2018 20:28
[2018-03-22] MEDS ORDERED: LORazepam 2 MG/ML VIAL IM ONE (20:30)
[2018-03-22] MEDS ORDERED: LIDOCAINE HCL 1% 30 ML VIAL INFIL ONE (20:30)
[2018-03-22] MEDS ORDERED: LIDOCAINE 1%/EPINEPHrine 1:100,000 SOLN 30 ML VIAL ONE (20:40)
[2018-03-22 20:55] LABS: AUTOMATED NEUTROPHIL # 4.7 TH/MM3 (1.8-7.7); BASOPHIL # 0.1 TH/MM3 (0-0.2); BASOPHIL % 0.8 % (0.0-2.0); EOSINOPHIL # 0.2 TH/MM3 (0-0.4); HEMATOCRIT 40.2 % (35.0-46.0); HEMOGLOBIN 12.7 GM/DL (11.6-15.3); LYMPH % 19.2 % (9.0-44.0); LYMPHOCYTE # 1.4 TH/MM3 (1.0-4.8); MEAN CORPUSCULAR HEMOGLOBIN 24.4 PG (27.0-34.0); MEAN CORPUSCULAR HGB CONC 31.7 % (32.0-36.0); MEAN PLATELET VOLUME 9.3 FL (7.0-11.0); MONO % 13.9 % (0.0-8.0); NEUT % 63.1 % (16.0-70.0); PLATELET COUNT 247 TH/MM3 (150-450); RED BLOOD COUNT 5.22 MIL/MM3 (4.00-5.30); RED CELL DISTRIBUTION WIDTH 17.2 % (11.6-17.2); WHITE BLOOD COUNT 7.4 TH/MM3 (4.0-11.0)
[2018-03-22 21:11] LABS: ALBUMIN 2.9 GM/DL (3.4-5.0); AST (GOT) 28 U/L (15-37); BICARBONATE 19.9 MEQ/L (21.0-32.0); BLOOD UREA NITROGEN 3 MG/DL (7-18); CALCIUM 8.7 MG/DL (8.5-10.1); CHLORIDE 104 MEQ/L (98-107); CREATININE 0.85 MG/DL (0.50-1.00); GLOMERULAR FILTRATION RATE 80 ML/MIN (>89); GLUCOSE,RANDOM 116 MG/DL (74-106); SODIUM (NA) 138 MEQ/L (136-145)
[2018-03-22 21:12] LABS: ALT (GPT) 26 U/L (10-53)
[2018-03-22 21:22] LABS: ALKALINE PHOSPHATASE 152 U/L (45-117); TOTAL BILIRUBIN ADULT 0.2 MG/DL (0.2-1.0); TOTAL PROTEIN 7.3 GM/DL (6.4-8.2)
[2018-03-22 21:28] LABS: ACETAMINOPHEN LESS THAN 2.0 MCG/ML (10.0-30.0)
--- NOTE | 2018-03-22 21:41 | PD ---
Data Data Orders Orders Complete Blood Count With Diff (03/22/18 20:27) Comprehensive Metabolic Panel (03/22/18 20:27) Thyroid Stimulating Hormone (03/22/18 20:27) Beta Hcg (Quant/Titer) (03/22/18 20:27) Psych Screen (03/22/18 20:27) Lorazepam Inj (Ativan Inj) (03/22/18 20:30) Drug Screen, Random Urine (03/22/18 20:27) Alcohol (Ethanol) (03/22/18 20:27) Salicylates (Aspirin) (03/22/18 20:27) Tylenol (Acetaminophen) (03/22/18 20:27) Lidocaine 1% Inj (Xylocaine 1% Inj) (03/22/18 20:30) ^ Sitter (03/22/18 20:38) Lidocai-Epi 1%-1:100,000 Inj (Xylocaine- (03/22/18 20:40) Labs Laboratory Tests Test 03/22/18 20:34 White Blood Count 7.4 TH/MM3 Red Blood Count 5.22 MIL/MM3 Hemoglobin 12.7 GM/DL Hematocrit 40.2 % Mean Corpuscular Volume 77.0 FL Mean Corpuscular Hemoglobin 24.4 PG Mean Corpuscular Hemoglobin Concent 31.7 % Red Cell Distribution Width 17.2 % Platelet Count 247 TH/MM3 Mean Platelet Volume 9.3 FL Neutrophils (%) (Auto) 63.1 % Lymphocytes (%) (Auto) 19.2 % Monocytes (%) (Auto) 13.9 % Eosinophils (%) (Auto) 3.0 % Basophils (%) (Auto) 0.8 % Neutrophils # (Auto) 4.7 TH/MM3 Lymphocytes # (Auto) 1.4 TH/MM3 Monocytes # (Auto) 1.0 TH/MM3 Eosinophils # (Auto) 0.2 TH/MM3 Basophils # (Auto) 0.1 TH/MM3 CBC Comment DIFF FINAL Differential Comment Blood Urea Nitrogen 3 MG/DL Creatinine 0.85 MG/DL Random Glucose 116 MG/DL Total Protein 7.3 GM/DL Albumin 2.9 GM/DL Calcium Level 8.7 MG/DL Alkaline Phosphatase 152 U/L Aspartate Amino Transf (AST/SGOT) 28 U/L Alanine Aminotransferase (ALT/SGPT) 26 U/L Total Bilirubin 0.2 MG/DL Sodium Level 138 MEQ/L Potassium Level 3.2 MEQ/L Chloride Level 104 MEQ/L Carbon Dioxide Level 19.9 MEQ/L Anion Gap 14 MEQ/L Estimat Glomerular Filtration Rate 80 ML/MIN Thyroid Stimulating Hormone 3rd Gen 1.170 uIU/ML Human Chorionic Gonadotropin, Quant LESS THAN 1 MIU/ML Salicylates Level 5.2 MG/DL Acetaminophen Level LESS THAN 2.0 MCG/ML Ethyl Alcohol Level 269 MG/DL MDM Medical Record Reviewed: Yes Supervised Visit with ADALBERTO: No Narrative Course This patient presents with multiple lacerations to the right forearm which I was asked to repair. She verbally consents. Procedures Procedure Narrative LACERATION LOCATION: Right forearm LENGTH: 2 cm NUMBER OF STITCHES/TYLER: 3 REPAIR: The area of the laceration was prepped with Betadine and sterilely draped. The laceration was infiltrated with [1% lidocaine with epinephrine. The wound was copiously irrigated and explored without evidence of foreign body , tendon injury or neurovascular injury. The wound was closed using 4-0 nylon simple interrupted. This was a single layer repair. A sterile dressing was applied. The patient was advised to keep the dressing clean and dry. Patient tolerated the procedure well. LACERATION LOCATION: Right forearm LENGTH: 3 cm NUMBER OF STITCHES/TYLER: 4 REPAIR: The area of the laceration was prepped with Betadine and sterilely draped. The laceration was infiltrated with [1% lidocaine with epinephrine. The wound was copiously irrigated and explored without evidence of foreign body , tendon injury or neurovascular injury. The wound was closed using 4-0 nylon simple interrupted. This was a single layer repair. A sterile dressing was applied. The patient was advised to keep the dressing clean and dry. Patient tolerated the procedure well. LACERATION LOCATION: Right forearm LENGTH: 3 cm NUMBER OF STITCHES/TYLER: 4 REPAIR: The area of the laceration was prepped with Betadine and sterilely draped. The laceration was infiltrated with [1% lidocaine with epinephrine. The wound was copiously irrigated and explored without evidence of foreign body , tendon injury or neurovascular injury. The wound was closed using 4-0 nylon simple interrupted. This was a single layer repair. A sterile dressing was applied. The patient was advised to keep the dressing clean and dry. Patient tolerated the procedure well. LACERATION LOCATION: Right forearm LENGTH: 3 cm NUMBER OF STITCHES/TYLER: 3 REPAIR: The area of the laceration was prepped with Betadine and sterilely draped. The laceration was infiltrated with [1% lidocaine with epinephrine. The wound was copiously irrigated and explored without evidence of foreign body , tendon injury or neurovascular injury. The wound was closed using 4-0 nylon simple interrupted. This was a single layer repair. A sterile dressing was applied. The patient was advised to keep the dressing clean and dry. Patient tolerated the procedure well. LACERATION LOCATION: Right forearm LENGTH: 2 cm NUMBER OF STITCHES/TYLER: 2 REPAIR: The area of the laceration was prepped with Betadine and sterilely draped. The laceration was infiltrated with [1% lidocaine with epinephrine. The wound was copiously irrigated and explored without evidence of foreign body , tendon injury or neurovascular injury. The wound was closed using 4-0 nylon simple interrupted. This was a single layer repair. A sterile dressing was applied. The patient was advised to keep the dressing clean and dry. Patient tolerated the procedure well. Paco Corcoran Mar 22, 2018 21:41
[2018-03-22] MEDS ORDERED: POTASSIUM CHLORIDE 10 MEQ CONTROLLED RELEASE TAB PO ONE (22:45)
[2018-03-23 00:31] VITALS: BP 100/54; PULSE 114; RESP 17; TEMP 99; O2SAT 98
[2018-03-23 06:32] VITALS: BP 111/59; PULSE 97; RESP 18; TEMP 98.2; O2SAT 97
--- NOTE | 2018-03-23 13:18 | PD ---
Physical Exam Date Seen by Provider: Mar 23, 2018 Time Seen by Provider: 13:16 Narrative 27-year-old female previously medically clear for psychiatric evaluation after suicidal attempt, has been evaluated and seen by psychiatric services, and felt to be psychiatrically stable for discharge at this time. Patient remains medically stable at this time. Follow-up will be based on psychiatric note. Data Data Last Documented VS Vital Signs Date Time Temp Pulse Resp B/P (MAP) Pulse Ox O2 Delivery O2 Flow Rate FiO2 03/23/18 11:35 03/23/18 06:32 98.2 97 18 97 03/23/18 00:31 Room Air Orders Orders Complete Blood Count With Diff (03/22/18 20:27) Comprehensive Metabolic Panel (03/22/18 20:27) Thyroid Stimulating Hormone (03/22/18 20:27) Beta Hcg (Quant/Titer) (03/22/18 20:27) Psych Screen (03/22/18 20:27) Lorazepam Inj (Ativan Inj) (03/22/18 20:30) Drug Screen, Random Urine (03/22/18 20:27) Alcohol (Ethanol) (03/22/18 20:27) Salicylates (Aspirin) (03/22/18 20:27) Tylenol (Acetaminophen) (03/22/18 20:27) Lidocaine 1% Inj (Xylocaine 1% Inj) (03/22/18 20:30) ^ Sitter (03/22/18 20:38) Lidocai-Epi 1%-1:100,000 Inj (Xylocaine- (03/22/18 20:40) Potassium Chloride (Kcl) (03/22/18 22:45) Diet Regular Basic (03/23/18 Breakfast) Ed Urine Pregnancytest Poc (03/23/18 06:36) Diet Regular Basic (03/23/18 Lunch) Labs Laboratory Tests Test 03/22/18 20:34 03/23/18 06:35 White Blood Count 7.4 TH/MM3 Red Blood Count 5.22 MIL/MM3 Hemoglobin 12.7 GM/DL Hematocrit 40.2 % Mean Corpuscular Volume 77.0 FL Mean Corpuscular Hemoglobin 24.4 PG Mean Corpuscular Hemoglobin Concent 31.7 % Red Cell Distribution Width 17.2 % Platelet Count 247 TH/MM3 Mean Platelet Volume 9.3 FL Neutrophils (%) (Auto) 63.1 % Lymphocytes (%) (Auto) 19.2 % Monocytes (%) (Auto) 13.9 % Eosinophils (%) (Auto) 3.0 % Basophils (%) (Auto) 0.8 % Neutrophils # (Auto) 4.7 TH/MM3 Lymphocytes # (Auto) 1.4 TH/MM3 Monocytes # (Auto) 1.0 TH/MM3 Eosinophils # (Auto) 0.2 TH/MM3 Basophils # (Auto) 0.1 TH/MM3 CBC Comment DIFF FINAL Differential Comment Blood Urea Nitrogen 3 MG/DL Creatinine 0.85 MG/DL Random Glucose 116 MG/DL Total Protein 7.3 GM/DL Albumin 2.9 GM/DL Calcium Level 8.7 MG/DL Alkaline Phosphatase 152 U/L Aspartate Amino Transf (AST/SGOT) 28 U/L Alanine Aminotransferase (ALT/SGPT) 26 U/L Total Bilirubin 0.2 MG/DL Sodium Level 138 MEQ/L Potassium Level 3.2 MEQ/L Chloride Level 104 MEQ/L Carbon Dioxide Level 19.9 MEQ/L Anion Gap 14 MEQ/L Estimat Glomerular Filtration Rate 80 ML/MIN Thyroid Stimulating Hormone 3rd Gen 1.170 uIU/ML Human Chorionic Gonadotropin, Quant LESS THAN 1 MIU/ML Salicylates Level 5.2 MG/DL Acetaminophen Level LESS THAN 2.0 MCG/ML Ethyl Alcohol Level 269 MG/DL Urine Opiates Screen NEG Urine Barbiturates Screen NEG Urine Amphetamines Screen NEG Urine Benzodiazepines Screen NEG Urine Cocaine Screen POS Urine Cannabinoids Screen POS MDM Medical Record Reviewed: Yes Supervised Visit with ADALBERTO: Yes Narrative Course 27-year-old female previously medically clear for psychiatric evaluation after suicidal attempt, has been evaluated and seen by psychiatric services, and felt to be psychiatrically stable for discharge at this time. Patient remains medically stable at this time. Follow-up will be based on psychiatric note. Patient Instructions: General Instructions Med/Other Pt SpecificInfo: No Meds Exist/No RX given Disposition: 01 DISCHARGE HOME Condition: Stable Romario Olea Mar 23, 2018 13:18
--- NOTE | 2018-03-23 13:24 | PD ---
History of Present Illness Chief Complaint: Suicide Ideation/Attempt Time Seen by Provider: 13:05 Travel History International Travel<30 Days: No Contact w/Intl Traveler<30days: No Known affected area: No Legal Status Legal Status: Hunter Act Hunter Act Signed By: Dayton Clement History of Present Illness: History of Present Illness HPI Patient is a 27-year-old woman, single, unemployed, on SSD, past psychiatric history of schizoaffective disorder, borderline personality disorder , anxiety disorder, polysubstance use disorder (cocaine, marijuana, alcohol) with previous psychiatric hospitalizations, multiple ED visits for self injurious behavior, 1 prior suicide attempt at age 16, who was brought in under Hunter act for cutting self using an X-Acto knife and for allegedly stating that she wanted to kill herself. At the time the patient was intoxicated and her blood alcohol level on arrival to the ED was 269. Her toxicology is positive for cocaine and cannabinoids. The patient reported to ED provider that she was not suicidal or homicidal and admitted to using cocaine and to "having had up to 20 shots of vodka in the last 15 hours". Patient was monitored in secure environment and was allowed to sober up clinically. She presented no further episodes of self-injurious behavior, no suicidal ideation. The patient is seen. She is clinically sober. She is alert, oriented, calm and cooperative. Her speech is clear and logical, normal rate and rhythm. There is no evidence of any psychosis, no tamela or hypomania. She states" I drank too much and I cut myself. I have not cut in the past 4 months but I stop my meds and have been drinking." The patient denies any suicidal or homicidal ideation, intent or plan. She states that she was doing very well prior to this incident and attributes to now living with her father instead of with her mother. The patient is requesting to be discharged. She has plans on going to [facility] tomorrow as a walk-in so that she can get back on her medication. I have counseled her on the importance of abstaining from alcohol and other substances. PFSH Past Medical History ADHD: No Arthritis: No Asthma: No Autoimmune Disease: No Blood Disorders: No Bipolar Disorder: Yes Anxiety: Yes Depression: Yes Heart Rhythm Problems: Yes Cancer: No Cardiovascular Problems: Yes (Heart murmur) High Cholesterol: No Chemotherapy: No Chest Pain: No Congestive Heart Failure: No COPD: No Cerebrovascular Accident: No Diabetes: No Diminished Hearing: No Endocrine: No Gastrointestinal Disorders: No GERD: No Glaucoma: No Genitourinary: No Headaches: No Hepatitis: No Hiatal Hernia: No Heparin Induced Thrombocytopen: No Hypertension: No Immune Disorder: No Implanted Vascular Access Dvce: No Kidney Stones: No Musculoskeletal: No Neurologic: Yes Psychiatric: Yes (Schizoaffective disorder, borderline personality disorder, anxiety disorder) Reproductive: No Respiratory: No Immunizations Current: Yes Migraines: No Myocardial Infarction: No Radiation Therapy: No Renal Failure: No Seizures: No Sickle Cell Disease: No Sleep Apnea: No Thyroid Disease: No Ulcer: No ?: Not LMP: 03/16/18 : 0 Para: 0 Past Surgical History AICD: No Appendectomy: No Arteriovenous Shunt: No Cholecystectomy: No Insulin Pump: No Joint Replacement: No Pacemaker: No Other Surgery: No Psychiatric History Psychiatric History Hx Psychiatric Treatment: EXTENSIVE HISTORY OF SELF MUTILATION. Receives outpatient care at [facility]. History of Inpatient Treatment: Yes Guns or firearms in home: No Social History Single, never , living with her stepfather. Patient is unemployed and on SSDI. Has past history of incarceration. Hx Alcohol Use: Yes (DAILY) Hx Tobacco Use: Yes (1PPD) Hx Substance Use: Yes (CRACK-COCAINE, ALCOHOL ABUSE ) Substance Use Type: Alcohol, Marijuana, Nicotine/Cigarettes, Cocaine Hx of Substance Use Treatment: Yes Family Psychiatric History Negative Allergies-Medications (Allergen,Severity, Reaction): Coded Allergies: No Known Allergies (Verified Allergy, Unknown, 03/22/18) Reported Meds & Prescriptions Reported Meds & Active Scripts Active Reported Trazodone (Trazodone HCl) 150 Mg Tablet 150 Mg PO HS Seroquel (Quetiapine Fumarate) 400 Mg Tab 400 Mg PO HS Klonopin (Clonazepam) 1 Mg Tab 1 Mg PO BID Prozac (Fluoxetine HCl) 20 Mg Cap 40 Mg PO DAILY Buspirone (Buspirone HCl) 10 Mg Tab 15 Mg PO BID Mental Status Examination Appearance: Appropriate Consciousness: Alert Orientation: x4 Motor Activity: Normal gait Speech: Unremarkable Language: Adequate Fund of Knowledge: Adequate Attention and Concentration: Adequate Memory: Unremarkable Mood: Appropriate Affect: Appropriate Thought Process & Associations: Intact, Logical, Goal directed Thought Content: Appropriate Hallucination Type: None Delusion Type: None Suicidal Ideation: No Suicidal Plan: No Suicidal Intention: No Homicidal Ideation: No Homicidal Plan: No Homicidal Intention: No Insight: Fair Judgment: Impulsive MDM Medical Decision Making Medical Record Reviewed: Yes Assessment/Plan 27-year-old female with history of schizoaffective disorder, borderline personality disorder, anxiety disorder, substance use disorder including alcohol cocaine and marijuana, significant past history of self-injurious behavior by cutting, who in context of acute alcohol intoxication as well as use of cocaine and marijuana, self-inflicted lacerations to her right wrist and forearm. The patient did not cut herself as a suicidal gesture. She is not psychotic, not manic. She denies suicidal or homicidal ideation, intent or plan. The patient is future oriented. She will follow up with [facility] tomorrow morning. She is counseled on abstinence from substances. The patient at this time does not meet criteria to remain under the Hunter act and therefore it will be lifted. Psychiatric clear for discharge from the ED. Orders Orders Complete Blood Count With Diff (03/22/18 20:27) Comprehensive Metabolic Panel (03/22/18 20:27) Thyroid Stimulating Hormone (03/22/18 20:27) Beta Hcg (Quant/Titer) (03/22/18 20:27) Psych Screen (03/22/18 20:27) Lorazepam Inj (Ativan Inj) (03/22/18 20:30) Drug Screen, Random Urine (03/22/18 20:27) Alcohol (Ethanol) (03/22/18 20:27) Salicylates (Aspirin) (03/22/18 20:27) Tylenol (Acetaminophen) (03/22/18 20:27) Lidocaine 1% Inj (Xylocaine 1% Inj) (03/22/18 20:30) ^ Sitter (03/22/18 20:38) Lidocai-Epi 1%-1:100,000 Inj (Xylocaine- (03/22/18 20:40) Potassium Chloride (Kcl) (03/22/18 22:45) Diet Regular Basic (03/23/18 Breakfast) Ed Urine Pregnancytest Poc (03/23/18 06:36) Diet Regular Basic (03/23/18 Lunch) Ed Discharge Order (03/23/18 13:18) Results Vital Signs Date Time Temp Pulse Resp B/P (MAP) Pulse Ox O2 Delivery O2 Flow Rate FiO2 03/23/18 11:35 03/23/18 06:32 98.2 97 18 111/59 (76) 97 03/23/18 00:31 99.0 114 17 100/54 (69) 98 Room Air Laboratory Tests Test 03/22/18 20:34 03/23/18 06:35 White Blood Count 7.4 Red Blood Count 5.22 Hemoglobin 12.7 Hematocrit 40.2 Mean Corpuscular Volume 77.0 Mean Corpuscular Hemoglobin 24.4 Mean Corpuscular Hemoglobin Concent 31.7 Red Cell Distribution Width 17.2 Platelet Count 247 Mean Platelet Volume 9.3 Neutrophils (%) (Auto) 63.1 Lymphocytes (%) (Auto) 19.2 Monocytes (%) (Auto) 13.9 Eosinophils (%) (Auto) 3.0 Basophils (%) (Auto) 0.8 Neutrophils # (Auto) 4.7 Lymphocytes # (Auto) 1.4 Monocytes # (Auto) 1.0 Eosinophils # (Auto) 0.2 Basophils # (Auto) 0.1 CBC Comment DIFF FINAL Differential Comment Blood Urea Nitrogen 3 Creatinine 0.85 Random Glucose 116 Total Protein 7.3 Albumin 2.9 Calcium Level 8.7 Alkaline Phosphatase 152 Aspartate Amino Transf (AST/SGOT) 28 Alanine Aminotransferase (ALT/SGPT) 26 Total Bilirubin 0.2 Sodium Level 138 Potassium Level 3.2 Chloride Level 104 Carbon Dioxide Level 19.9 Anion Gap 14 Estimat Glomerular Filtration Rate 80 Thyroid Stimulating Hormone 3rd Gen 1.170 Human Chorionic Gonadotropin, Quant LESS THAN 1 Salicylates Level 5.2 Acetaminophen Level LESS THAN 2.0 Ethyl Alcohol Level 269 Urine Opiates Screen NEG Urine Barbiturates Screen NEG Urine Amphetamines Screen NEG Urine Benzodiazepines Screen NEG Urine Cocaine Screen POS Urine Cannabinoids Screen POS Diagnosis Primary Impression: Alcohol intoxication Additional Impressions: Marijuana abuse Cocaine abuse Self-mutilation Psychiatrically Cleared: Yes Departure Forms: Tests/Procedures Patient Instructions: General Instructions, Polysubstance Abuse (ED) Additional Instructions: FOLLOW UP WITH PRIMARY CARE PHYSICIAN FOLLOW UP WITH PSYCHIATRY RETURN TO THE EMERGENCY DEPARTMENT IF SYMPTOMS PERSIST OR WORSEN Med/ Other Pt Specific Info: No Change to Meds Disposition: 01 DISCHARGE HOME Condition: Stable Problem Qualifiers Primary Impression: Alcohol intoxication Qualified Codes: F10.920 - Alcohol use, unspecified with intoxication, uncomplicated Pinky Laboy Mar 23, 2018 13:24
== END 2018-03-23 14:38 | disposition home or self-care (01) ==
LOC: NEDAMB 19:43 → NEPJ 03-23 14:38
DX: F10.129 Alcohol abuse with intoxication, unspecified (principal); F12.10 Cannabis abuse, uncomplicated; F14.10 Cocaine abuse, uncomplicated; F17.200 Nicotine dependence, unspecified, uncomplicated; F31.9 Bipolar disorder, unspecified; F41.9 Anxiety disorder, unspecified; F60.3 Borderline personality disorder; F25.9 Schizoaffective disorder, unspecified; S61.511A Laceration without foreign body of right wrist, initial encounter; X78.1XXA Intentional self-harm by knife, initial encounter; Y90.8 Blood alcohol level of 240 mg/100 ml or more; Z79.899 Other long term (current) drug therapy
CPT/HCPCS: 12005; 80053; 80307; 84443; 84702; 84703; 85025; 96372; 99284; J2060